=== PATIENT | female | born 1955 | race Hispanic/Latino ===

== ENCOUNTER 2018-02-13 07:22 | Observation (INO) | payer OTHER ==
[2018-02-13] MEDS ORDERED: ONDANSETRON 4 MG/2 ML VIAL ONE (08:19)
[2018-02-13 08:39] LABS: Albumin 3.9 g/dL (3.2-5.5); Bilirubin Direct 0.1 mg/dL (0-0.2); Bilirubin Total 0.4 mg/dL (0.3-1.2); Protein, Total 8.1 g/dL (6.0-8.3)
[2018-02-13 08:50] LABS: Absolute Lymphocytes (CBC) 1.3 K/uL (0.7-4.9); Absolute Monocytes 0.5 K/uL (0.1-1.3); Absolute Neutrophil 7.3 K/uL (1.8-8.0); Basophils % 0.4 % (0-1.3); Eosinophils % 1.6 % (0-4.4); Hematocrit 33.3 % (36.0-45.0); Lymphocytes % 14.2 % (15.3-44.8); MPV 7.5 fL (7.6-11.3); Monocytes % 5.4 % (3.3-12.3); RBC Red Blood Cell Count 3.62 M/uL (3.86-4.86)
[2018-02-13] MEDS ORDERED: ALBUTEROL 2.5 MG/3 ML NEB SOL ONE (09:31)
[2018-02-13] MEDS ORDERED: INSULIN -REGULAR HUMAN 50 UNIT/0.5 ML ML ONE (09:31)
[2018-02-13] MEDS ORDERED: SOD POLYSTYREN SUL 15 GM/60 ML UCUP ONE (09:31)
[2018-02-13] MEDS ORDERED: D50W 25 GM/50 ML SYRINGE IV ONE (09:31)
[2018-02-13 09:40] LABS: Urine Blood NEGATIVE (NEG); Urine Glucose NEGATIVE (NEG); Urine Protein 1+ (NEG)
--- NOTE | 2018-02-13 10:22 | EKG ---
Test Date: 2018-02-13 Test Time: 08:10:09 Kier Drier: SALLY MEASUREMENT RESULTS: Intervals: Rate: 92 WY: 136 QRSD: 88 QT: 348 QTc: 430 [place]: P: 46 WY: 136 QRS: -4 T: 22 INTERPRETIVE STATEMENTS: Normal sinus rhythm Minimal voltage criteria for LVH, may be normal variant Borderline ECG Compared to ECG 05/17/2016 07:20:18 ST (T wave) deviation no longer present Electronically Signed On 02-13-18 10:21:25 CDT by You Hernandez
[2018-02-13 12:04] LABS: Potassium 6.3 mEq/L (3.6-5.0)
--- NOTE | 2018-02-13 13:21 | ER ---
Nurse's Notes [facility] Name: Evelia Reis Age: 62 yrs Sex: Female : 1955 Arrival Date: 02/13/2018 Time: 07:24 Bed 5 Private MD: Diagnosis: Hyperkalemia Presentation: 02/13 07:31 Presenting complaint: Patient states: nausea and vomiting that began at 0230 this ss morning. Pt reports she was supposed to have blood tests drawn per Dr. Dale this morning to follow up for high potassium levels. Pt denies pain. Transition of care: patient was not received from another setting of care. Onset of symptoms was February 13, 2018. Care prior to arrival: None. 07:31 Method Of Arrival: Ambulatory 07:31 Acuity: SHERRI 3 ss Historical: - Allergies: 07:33 Amoxicillin; ss 07:33 NSAIDS; ss - Home Meds: 07:33 Vitamin D Oral [Active]; ss - PMHx: 07:33 Diabetes - IDDM; Hyperlipidemia; Hypertension; ischemic stroke; ss - PSHx: 07:33 right great toe amputation; ss - Immunization history:: Adult Immunizations up to date. - Social history:: Smoking status: Patient/guardian denies using tobacco. Screenin:37 Abuse screen: Denies threats or abuse. Denies injuries from another. Nutritional sv screening: No deficits noted. Tuberculosis screening: No symptoms or risk factors identified. Fall Risk None identified. Assessment: 08:00 General: Appears in no apparent distress. uncomfortable, obese, well developed, sv Behavior is calm, cooperative. Pain: Denies pain. Neuro: Level of Consciousness is awake, alert, obeys commands, Oriented to person, place, time, situation, Moves all extremities. Full function Gait is steady, Speech is normal. Respiratory: Respiratory effort is even, unlabored, Respiratory pattern is regular, symmetrical. GI: Abdomen is obese, Pt is actively vomiting clear fluid, Reports nausea, vomiting, Patient currently denies diarrhea. Derm: Skin is normal. Musculoskeletal: Range of motion: intact in all extremities. 09:30 Reassessment: Patient appears in no apparent distress at this time. Patient and/or sg family updated on plan of care and expected duration. Pain level reassessed. Patient is alert, oriented x 3, equal unlabored respirations, skin warm/dry/pink. pt awaiting new orders at this time, updated on pt lab results, will continue to monitor Patient denies pain at this time. Patient states feeling better. 10:30 Reassessment: Patient appears in no apparent distress at this time. Patient and/or sg family updated on plan of care and expected duration. Pain level reassessed. Patient is alert, oriented x 3, equal unlabored respirations, skin warm/dry/pink. Patient denies pain at this time. 11:30 Reassessment: Patient appears in no apparent distress at this time. Patient and/or sg family updated on plan of care and expected duration. Pain level reassessed. Patient is alert, oriented x 3, equal unlabored respirations, skin warm/dry/pink. awaiting potassium redraw results at this time, awaiting new orders, will continue to monitor Patient denies pain at this time. 12:30 Reassessment: Patient appears in no apparent distress at this time. Patient and/or sg family updated on plan of care and expected duration. Pain level reassessed. Patient is alert, oriented x 3, equal unlabored respirations, skin warm/dry/pink. Patient denies pain at this time. 13:30 Reassessment: Patient appears in no apparent distress at this time. Patient and/or sg family updated on plan of care and expected duration. Pain level reassessed. Patient is alert, oriented x 3, equal unlabored respirations, skin warm/dry/pink. awaiting a bed assignment at this time, awaiting admission orders, pt updated on POC and need for admit, updated on redraw potassium results, medications administered as ordered, will continue to monitor Patient denies pain at this time. 14:15 Reassessment: Patient appears in no apparent distress at this time. Patient and/or sg family updated on plan of care and expected duration. Pain level reassessed. Patient is alert, oriented x 3, equal unlabored respirations, skin warm/dry/pink. awaiting a food tray to be delivered at this time, pt stated understanding Patient denies pain at this time. Patient states feeling better. 14:29 Reassessment: Left voicemail on Dr Nguyễn's phone to input admission orders for the pt. sv 14:47 Reassessment: Patient appears in no apparent distress at this time. Patient and/or sg family updated on plan of care and expected duration. Pain level reassessed. Patient is alert, oriented x 3, equal unlabored respirations, skin warm/dry/pink. orders received for admission, pt updated, pt stated understanding, awaiting a bed assignment at this time will continue to monitor. Vital Signs: 07:33 BP 171 / 72; Pulse 118; Resp 21; Temp 98.4(O); Pulse Ox 98% on R/A; Weight 122.47 kg; ss Height 5 ft. 2 in. (157.48 cm); Pain 0/10; 10:09 BP 125 / 64; Pulse 100 MON; Resp 18 S; Temp 98.4; Pulse Ox 100% on R/A; Pain 0/10; sg 10:57 BP 128 / 61; Pulse 91; Resp 16; Pulse Ox 97% on R/A; jb1 12:00 BP 136 / 64; Pulse 80 MON; Resp 18; Pulse Ox 99% on R/A; sv 13:53 BP 120 / 47; Pulse 77; Resp 15; Pulse Ox 99% ; sv 14:22 BP 119 / 87; Pulse 80 MON; Resp 17 S; Pulse Ox 100% on R/A; sg 07:33 Body Mass Index 49.38 (122.47 kg, 157.48 cm) ss 12:00 Sinus Rhythm sv ED Course: 07:24 Patient arrived in ED. sb2 07:32 Triage completed. ss 07:33 Arm band placed on right wrist. ss 07:36 Noah Padron PA is PHCP. jr8 07:56 Otoniel Hidalgo MD is Attending Physician. jr8 07:58 Gordon Woodruff, RN is Primary Nurse. sg 08:00 Patient has correct armband on for positive identification. Placed in gown. Bed in low sv position. Call light in reach. Door closed. Head of bed elevated. 08:05 Initial lab(s) drawn, by me, sent to lab. Inserted saline lock: 20 gauge in left sv antecubital area, using aseptic technique. Blood collected. Flushed left antecubital with 5 ml normal saline. 08:28 Urine collected: clean catch specimen, cloudy, toshia colored. jb1 08:29 EKG done, by pet care technician. reviewed by Otoniel Hidalgo MD. tc 09:01 Notified Nurse Practitioner and/or Physician Police Or Patrol Park Officer of a critical lab result(s), K+ dm5 = 6. 13:20 Steven Nguyễn MD is Hospitalizing Provider. jr8 14:48 No provider procedures requiring assistance completed. Patient admitted, IV remains in sg place. intact, No redness/swelling at site. Administered Medications: 08:07 Drug: Zofran 4 mg Route: IVP; Site: left antecubital; sv 09:31 Follow up: Response: No adverse reaction; Nausea is decreased sg 09:30 Drug: Albuterol 2.5 mg Route: Inhalation; sg 09:30 Drug: Albuterol 2.5 mg Route: Inhalation; sg 09:30 Drug: Albuterol 2.5 mg Route: Inhalation; sg 09:30 Drug: Kayexalate 30 grams Route: PO; sg 10:00 Follow up: Response: No adverse reaction sg 09:31 Drug: D50W 50 ml Route: IVP; Site: left antecubital; sg 10:00 Follow up: Response: No adverse reaction sg 09:31 Drug: Insulin Regular Human 10 units {Co-Signature: (Modesta Strauss RN).} Route: sg IVP; Site: left antecubital; 10:00 Follow up: Response: No adverse reaction sg 14:10 Drug: Lasix 60 mg Route: IVP; Site: left antecubital; sg 15:50 Follow up: Response: No adverse reaction; void x1 sg 14:10 Drug: NS 0.9% 1000 ml Route: IV; Rate: 1000 ml; Site: left antecubital; sg 15:50 Follow up: Response: No adverse reaction; IV Status: Completed infusion; IV Intake: sg 500ml Intake: 15:50 IV: 500ml; Total: 500ml. sg Outcome: 13:21 Decision to Hospitalize by Provider. jr8 15:04 Admitted to Tele accompanied by tech, via wheelchair, room 204, with chart, Report sg called to ALEXIA Marquez 15:04 Condition: stable 15:04 Instructed on the need for admit, safety practices, Demonstrated understanding of instructions. 15:13 Patient left the ED. sg Signatures: Luis Love Deana, RN RN dmModesta Young RN RN sv Gay, Steven, RN RN sg Smirch, Shelby, RN RN ss Roszak, Josh, PA PA jr8 Nara Cox, housesmith EKG Ttc Heidi Reed sb2 Modesta Strauss RN sv
--- NOTE | 2018-02-13 13:21 | EDPHYS ---
Physician Documentation [facility] Name: Evelia Reis Age: 62 yrs Sex: Female : 1955 Arrival Date: 02/13/2018 Time: 07:24 Bed 5 Private MD: ED Physician Otoniel Hidalgo HPI: 02/13 08:07 This 62 yrs old Female presents to ER via Ambulatory with complaints of jr8 Nausea/Vomiting. 08:07 The patient presents to the emergency department with nausea, vomiting. Onset: The jr8 symptoms/episode began/occurred acutely, this morning. The symptoms are aggravated by nothing. The symptoms are alleviated by nothing. Associated signs and symptoms: The patient has no apparent associated signs or symptoms. Severity of symptoms: At their worst the symptoms were mild in the emergency department the symptoms are unchanged. The patient has not experienced similar symptoms in the past. The patient has not recently seen a physician. Patient stated that she started Tylenol #3 last night for low back pain. Stated that she took the medicine at 10 pm last night. Woke up around 2 am with n/v. Stated that she does not know if it is from that or her potassium. Stated that she was suppose to have labs to confirm hyperkalemia today as well. Denies fevers, diarrhea, abdominal pain . Historical: - Allergies: 07:33 Amoxicillin; ss 07:33 NSAIDS; ss - Home Meds: 07:33 Vitamin D Oral [Active]; ss - PMHx: 07:33 Diabetes - IDDM; Hyperlipidemia; Hypertension; ischemic stroke; ss - PSHx: 07:33 right great toe amputation; ss - Immunization history:: Adult Immunizations up to date. - Social history:: Smoking status: Patient/guardian denies using tobacco. ROS: 08:07 Eyes: Negative for injury, pain, redness, and discharge, ENT: Negative for injury, jr8 pain, and discharge, Neck: Negative for injury, pain, and swelling, Cardiovascular: Negative for chest pain, palpitations, and edema, Respiratory: Negative for shortness of breath, cough, wheezing, and pleuritic chest pain, Back: Negative for injury and pain, MS/Extremity: Negative for injury and deformity, Skin: Negative for injury, rash, and discoloration, Neuro: Negative for headache, weakness, numbness, tingling, and seizure. 08:07 Abdomen/GI: Positive for nausea and vomiting, Negative for abdominal pain, diarrhea, abdominal cramps, abdominal distension, anorexia, dysphagia, hematemesis, black/tarry stool, rectal pain, rectal bleeding, bowel incontinence, flatulence. Exam: 08:07 Head/Face: Normocephalic, atraumatic. Eyes: Pupils equal round and reactive to light, jr8 extra-ocular motions intact. Lids and lashes normal. Conjunctiva and sclera are non-icteric and not injected. Cornea within normal limits. Periorbital areas with no swelling, redness, or edema. ENT: Nares patent. No nasal discharge, no septal abnormalities noted. Tympanic membranes are normal and external auditory canals are clear. Oropharynx with no redness, swelling, or masses, exudates, or evidence of obstruction, uvula midline. Mucous membranes moist. Neck: Trachea midline, no thyromegaly or masses palpated, and no cervical lymphadenopathy. Supple, full range of motion without nuchal rigidity, or vertebral point tenderness. No Meningismus. Cardiovascular: Regular rate and rhythm with a normal S1 and S2. No gallops, murmurs, or rubs. Normal PMI, no JVD. No pulse deficits. Respiratory: Lungs have equal breath sounds bilaterally, clear to auscultation and percussion. No rales, rhonchi or wheezes noted. No increased work of breathing, no retractions or nasal flaring. Abdomen/GI: Soft, non-tender, with normal bowel sounds. No distension or tympany. No guarding or rebound. No evidence of tenderness throughout. Back: No spinal tenderness. No costovertebral tenderness. Full range of motion. Skin: Warm, dry with normal turgor. Normal color with no rashes, no lesions, and no evidence of cellulitis. MS/ Extremity: Pulses equal, no cyanosis. Neurovascular intact. Full, normal range of motion. Neuro: Awake and alert, GCS 15, oriented to person, place, time, and situation. Cranial nerves II-XII grossly intact. Motor strength 5/5 in all extremities. Sensory grossly intact. Cerebellar exam normal. Normal gait. Vital Signs: 07:33 BP 171 / 72; Pulse 118; Resp 21; Temp 98.4(O); Pulse Ox 98% on R/A; Weight 122.47 kg; ss Height 5 ft. 2 in. (157.48 cm); Pain 0/10; 10:09 BP 125 / 64; Pulse 100 MON; Resp 18 S; Temp 98.4; Pulse Ox 100% on R/A; Pain 0/10; sg 10:57 BP 128 / 61; Pulse 91; Resp 16; Pulse Ox 97% on R/A; jb1 12:00 BP 136 / 64; Pulse 80 MON; Resp 18; Pulse Ox 99% on R/A; sv 13:53 BP 120 / 47; Pulse 77; Resp 15; Pulse Ox 99% ; sv 14:22 BP 119 / 87; Pulse 80 MON; Resp 17 S; Pulse Ox 100% on R/A; sg 07:33 Body Mass Index 49.38 (122.47 kg, 157.48 cm) ss 12:00 Sinus Rhythm sv MDM: 07:36 Patient medically screened. [facility] 13:12 Data reviewed: vital signs, nurses notes, lab test result(s), and as a result, I will jr8 admit patient. Data interpreted: Pulse oximetry: on room air is 99 %. Interpretation: normal. Counseling: I had a detailed discussion with the patient and/or guardian regarding: the historical points, exam findings, and any diagnostic results supporting the discharge/admit diagnosis, lab results, the need for further work-up and treatment in the hospital. ED course: Patients original potassium was 6.0. Was given treatment to lower potassium. Redrawn after 2 hours. Had elevated. Checked for lab error and was still elevated. Had lab come to redraw. Patient feeling better. Will admit to Dr. Nguyễn for further evaluation . 02/13 07:49 Order name: Urine Dipstick--Ancillary (enter results) 02/13 07:52 Order name: Basic Metabolic Panel [facility] 02/13 07:52 Order name: CBC with Diff [facility] 02/13 07:52 Order name: Creatinine for Radiology [facility] 02/13 07:52 Order name: Hepatic Function [facility] 02/13 07:52 Order name: Lipase [facility] 02/13 08:33 Order name: Basic Metabolic Panel; Complete Time: 09:03 EDMT 02/13 08:40 Order name: Liver (Hepatic) Function; Complete Time: 09:03 EDMT 02/13 08:40 Order name: Lipase; Complete Time: 09:03 EDMT 02/13 08:51 Order name: CBC with Automated Diff; Complete Time: 08:59 EDMT 02/13 09:40 Order name: Urine Dipstick-Ancillary; Complete Time: 09:41 EDMT 02/13 09:46 Order name: Urinalysis [facility] 02/13 11:21 Order name: BMP; Complete Time: 12:12 [facility] 02/13 12:04 Order name: Potassium; Complete Time: 14:26 dm5 02/13 07:52 Order name: IV Saline Lock; Complete Time: 08:07 [facility] 02/13 07:52 Order name: Labs collected and sent; Complete Time: 08:07 [facility] 02/13 07:52 Order name: EKG; Complete Time: 09:30 [facility] 02/13 12:58 Order name: LAB Add On [facility] 02/13 13:04 Order name: Potassium [facility] 02/13 13:31 Order name: Diet Low Potassium; Complete Time: 16:03 02/13 14:04 Order name: Creatine Phosphokinase; Complete Time: 14:26 [facility] 02/13 14:51 Order name: Comprehensive Metabolic Panel; Complete Time: 15:20 [facility] 02/13 07:52 Order name: Urine Dipstick-Ancillary (obtain specimen); Complete Time: 08:08 [facility] 02/13 07:52 Order name: EKG - Nurse/Tech; Complete Time: 08:29 [facility] Administered Medications: 08:07 Drug: Zofran 4 mg Route: IVP; Site: left antecubital; 09:31 Follow up: Response: No adverse reaction; Nausea is decreased sg 09:30 Drug: Albuterol 2.5 mg Route: Inhalation; sg 09:30 Drug: Albuterol 2.5 mg Route: Inhalation; sg 09:30 Drug: Albuterol 2.5 mg Route: Inhalation; sg 09:30 Drug: Kayexalate 30 grams Route: PO; sg 10:00 Follow up: Response: No adverse reaction sg 09:31 Drug: D50W 50 ml Route: IVP; Site: left antecubital; sg 10:00 Follow up: Response: No adverse reaction sg 09:31 Drug: Insulin Regular Human 10 units {Co-Signature: sv (Modesta Strauss RN).} Route: sg IVP; Site: left antecubital; 10:00 Follow up: Response: No adverse reaction sg 14:10 Drug: Lasix 60 mg Route: IVP; Site: left antecubital; sg 15:50 Follow up: Response: No adverse reaction; void x1 sg 14:10 Drug: NS 0.9% 1000 ml Route: IV; Rate: 1000 ml; Site: left antecubital; sg 15:50 Follow up: Response: No adverse reaction; IV Status: Completed infusion; IV Intake: sg 500ml Disposition: 02/14 06:48 Co-signature as Attending Physician, Otoniel Hidalgo MD I agree with the assessment and pardeep plan of care. Disposition: 02/13/18 13:21 Hospitalization ordered by Steven Nguyễn for Observation. Preliminary diagnosis is Hyperkalemia. - Bed requested for Telemetry/MedSurg (observation). - Status is Observation. sg - Condition is Stable. - Problem is new. - Symptoms have improved. UTI on Admission? No Signatures: Dispatcher [employer] Modesta Sanchez RN RN sv Woody, Diana, RN RN dw Gay, Steven, RN RN sg Anderson, Corey, MD MD cha Smirch, Shelby, RN RN ss Roszak, Josh, PA PA jr8 Modesta Strauss RN Corrections: (The following items were deleted from the chart) 02/13 14:04 13:05 [facility] Creatine Kinase MB ordered. EDMT EDMS 14:04 14:02 [facility] Creatine Kinase MB reviewed. jr8 EDMS
[2018-02-13] MEDS ORDERED: NA CHLORIDE 0.9% 1,000 ML ONE (13:29)
[2018-02-13] MEDS ORDERED: FUROSEMIDE 100 MG/10 ML VIAL IV ONE (13:29)
[2018-02-13 14:01] LABS: Potassium 6.4 mEq/L (3.6-5.0)
[2018-02-13 14:50] LABS: Bilirubin Total 0.4 mg/dL (0.3-1.2); Protein, Total 8.2 g/dL (6.0-8.3)
[2018-02-13 15:00] LABS: Potassium 6.4 mEq/L (3.6-5.0)
[2018-02-13 15:18] VITALS: BMI 49.4
[2018-02-13] MEDS: NA CHLORIDE 0.9% 1,000 ML IV SCH ×2 (15:41→21:07)
[2018-02-13] MEDS: SOD POLYSTYREN SUL 15 GM/60 ML UCUP PO SCH ×2 (15:41→21:08)
[2018-02-13] MEDS ORDERED: D50W 25 GM/50 ML SYRINGE IV PRN (16:05)
[2018-02-13] MEDS ORDERED: GLUCAGON 1 MG/VIAL IM PRN (16:05)
[2018-02-13] MEDS: INSULIN -REGULAR HUMAN 50 UNIT/0.5 ML ML SQ SCH ×2 (16:22→21:00)
--- NOTE | 2018-02-13 16:36 | P.HP ---
Certification for Inpatient Patient admitted to: Observation With expected LOS: <2 Midnights Patient will require the following post-hospital care: None Practitioner: I am a practitioner with admitting privileges, knowledge of patient current condition, hospital course, and medical plan of care. Services: Services provided to patient in accordance with Admission requirements found in Title 42 Section 412.3 of the Code of Federal Regulations Patient History Date of Service: 02/13/18 Reason for admission: Nausea vomiting History of Present Illness: This is a 60-year-old female with a history of hypertension diabetes and the CKD D as well as a prior history of a hyperkalemia who presents to a emergency room because of persistent nausea vomiting for 1 day. In the emergency room laboratory study shows her potassium the range of 6.2. And she was giving on 1 does a Kayexalate in the ER and admitted hospital for further management. The patient have no abdominal pain fever chills dysuria. Allergies amoxicillin [Amoxicillin] Allergy (Unknown, Verified 03/26/14 21:55) Rash NSAIDS Allergy (Uncoded 08/29/15 14:30) Unknown Home Medications: Lisinopril [Prinivil*] 40 mg PO DAILY 03/26/14 Aspirin 81 mg PO DAILY #90 tab.chew 05/17/16 Clopidogrel Bisulfate [Plavix*] 75 mg PO DAILY #30 tablet 05/17/16 Atorvastatin Calcium [Lipitor] 40 mg PO BEDTIME 02/13/18 Codeine/APAP [Tylenol W/Codeine #3 tab] 1 tab PO BID 02/13/18 Cyclobenzaprine [Flexeril] 10 mg PO DAILY 02/13/18 Furosemide [Lasix] 20 mg PO DAILY 02/13/18 Insulin Glargine,Hum.rec.anlog [Kyler Velasco] 55 unit SQ DAILY WITH BREAKFAST 02/13/18 Insulin Lispro [Humalog] 10 unit SQ BREAKFAST 02/13/18 Insulin Lispro [Humalog] 14 unit SQ DAILY AT SUPPER 02/13/18 Insulin Lispro [Humalog] 14 unit SQ LUNCH 02/13/18 Liraglutide [Victoza 2-Migel] 1.8 mg SQ TIDWM 02/13/18 Metformin HCl [Glucophage] 1,000 mg PO DAILY WITH BREAKFAST 02/13/18 Metoprolol Succinate [Toprol Xl] 100 mg PO DAILY 02/13/18 Omeprazole [Prilosec] 40 mg PO DAILY 02/13/18 Spironolactone [Aldactone] 25 mg PO DAILY 02/13/18 - Past Medical/Surgical History Has patient received pneumonia vaccine in the past: Yes Diabetic: Yes -: HTN -: Hyperlipidemia -: Diabetes mellitus type 2 -: Chronic back pain with sciatica -: Peripheral vascular disease -: Right 1st toe amputation -: Superficial abscess of the abdomen, I/D -: Right lower extremity angioplasty Psychosocial/ Personal History: She is , has 2 children. She does not work. - Social History Smoking Status: Never smoker Alcohol use: No CD- Drugs: No Caffeine use: Yes Place of Residence: Home Review of Systems 10-point ROS is otherwise unremarkable Physical Examination - Vital Signs Temperature: 97 F Blood Pressure: 173/72 Pulse: 89 Respirations: 20 Pulse Ox (%): 99 - Physical Exam General: Alert, In no apparent distress, Obese HEENT: Atraumatic, PERRLA, Mucous membr. moist/pink, EOMI, Sclerae nonicteric Neck: Supple, 2+ carotid pulse no bruit, No LAD, Without JVD or thyroid abnormality Respiratory: Clear to auscultation bilaterally, Normal air movement Cardiovascular: Regular rate/rhythm, Normal S1 S2 Gastrointestinal: Normal bowel sounds, No tenderness Musculoskeletal: No tenderness Integumentary: No rashes Neurological: Normal gait, Normal speech, Normal strength at 5/5 x4 extr, Normal tone, Normal affect Lymphatics: No axilla or inguinal lymphadenopathy - Studies Laboratory Data (last 24 hrs) 02/13/18 13:16: Sodium 137, Potassium 6.4 H*, BUN 36 H, Creatinine 1.27 H, Glucose 140 H, Total Bilirubin 0.4, AST 23, ALT 15, Alkaline Phosphatase 107 02/13/18 12:10: Potassium 6.4 H* 02/13/18 11:40: Sodium 137, Potassium 6.3 H*, BUN 38 H, Creatinine 1.33 H, Glucose 138 H 02/13/18 08:05: WBC 9.4, Hgb 11.2 L, Hct 33.3 L, Plt Count 372 02/13/18 08:05: Sodium 138, Potassium 6.0 H*, BUN 38 H, Creatinine 1.40 H, Glucose 147 H, Total Bilirubin 0.4, AST 22, ALT 15, Alkaline Phosphatase 110, Lipase 45 02/13/18 07:52: Creatinine Cancelled 02/13/18 07:52: WBC Cancelled, Hgb Cancelled, Hct Cancelled, Plt Count Cancelled 02/13/18 07:52: Sodium Cancelled, Potassium Cancelled, BUN Cancelled, Creatinine Cancelled, Glucose Cancelled, Total Bilirubin Cancelled, AST Cancelled, ALT Cancelled, Alkaline Phosphatase Cancelled, Lipase Cancelled Assessment and Plan - Problems (Diagnosis) (1) Hyperkalemia Current Visit: Yes Status: Acute (2) CKD (chronic kidney disease) stage 2, GFR 60-89 ml/min Current Visit: Yes Status: Chronic (3) Diabetes Current Visit: Yes Status: Chronic Qualifiers: Diabetes mellitus type: type 2 Diabetes mellitus complication status: without complication (4) Hyperlipidemia Current Visit: Yes Status: Chronic Qualifiers: Hyperlipidemia type: unspecified (5) Hypertension Current Visit: Yes Status: Chronic Qualifiers: Hypertension type: essential hypertension - Plan --hold lisinopril --start patient on intravenous fluid replacement with Lasix --Kayexalate 15 g every 6 ah --repeat the labs tomorrow - Advance Directives Does patient have a Living Will: No Does patient have a Durable POA for Healthcare: No
[2018-02-13] MEDS ORDERED: HYDRALAZINE HCL 20 MG/ML VIAL IV PRN (16:38)
[2018-02-13] MEDS ORDERED: INSULIN LISPRO 100 UNIT/1 ML SQ SCH (17:00)
[2018-02-13] MEDS ORDERED: INSULIN LISPRO 14 UNIT SQ SCH (17:00)
[2018-02-13] MEDS: HOME MED 1 EA UNK (Liraglutide [Victoza 2-Pak] 1.8 MG) SQ SCH (17:00)
[2018-02-13] MEDS: CODEINE 30MG/APAP 300MG TAB PO SCH (21:00)
[2018-02-13] MEDS: FUROSEMIDE 40 MG/4 ML VIAL IV SCH (21:07)
[2018-02-13 23:34] VITALS: O2SAT 99
[2018-02-14] MEDS: SOD POLYSTYREN SUL 15 GM/60 ML UCUP PO SCH ×2 (03:40→08:36)
[2018-02-14 04:40] LABS: Urine Appearance CLEAR; Urine Bilirubin NEGATIVE (NEG); Urine Blood NEGATIVE (NEG); Urine Color YELLOW; Urine Glucose NEGATIVE (NEG); Urine Protein NEGATIVE (NEG); Urine Specific Gravity 1.015 (1.005-1.030); Urine Urobilinogen 0.2 mg/dL (0.2-1.0)
[2018-02-14 04:56] LABS: Urine Microscopic Reflex NO UMIC
[2018-02-14 05:30] LABS: Absolute Lymphocytes (CBC) 1.9 K/uL (0.7-4.9); Absolute Monocytes 0.7 K/uL (0.1-1.3); Absolute Neutrophil 5.4 K/uL (1.8-8.0); Eosinophils % 2.3 % (0-4.4); Hematocrit 31.1 % (36.0-45.0); Lymphocytes % 23.1 % (15.3-44.8); MCH 30.6 pg (27.0-35.0); MCV 92.1 fL (80-100); MPV 7.6 fL (7.6-11.3); Monocytes % 7.9 % (3.3-12.3); RBC Red Blood Cell Count 3.38 M/uL (3.86-4.86)
[2018-02-14 05:39] LABS: Potassium 5.2 mEq/L (3.6-5.0)
[2018-02-14] MEDS ORDERED: PANTOPRAZOLE 40MG TABLET PO SCH (07:30)
[2018-02-14] MEDS ORDERED: INSULIN DETEMIR 100 UNIT/1 ML INSULIN SQ SCH (08:00)
[2018-02-14] MEDS ORDERED: INSULIN LISPRO 10 UNIT SQ SCH (08:00)
[2018-02-14] MEDS: HOME MED 1 EA UNK (Liraglutide [Victoza 2-Pak] 1.8 MG) SQ SCH ×2 (08:00→11:18)
[2018-02-14] MEDS ORDERED: INSULIN LISPRO 100 UNIT/1 ML SQ SCH ×2 (08:00→12:00)
[2018-02-14] MEDS: INSULIN -REGULAR HUMAN 50 UNIT/0.5 ML ML SQ SCH ×2 (08:35→11:31)
[2018-02-14] MEDS: FUROSEMIDE 40 MG/4 ML VIAL IV SCH (08:36)
[2018-02-14] MEDS: CODEINE 30MG/APAP 300MG TAB PO SCH (08:37)
[2018-02-14] MEDS ORDERED: METOPROLOL XL 50 MG TAB PO SCH (09:00)
[2018-02-14] MEDS ORDERED: HOME MED 1 EA UNK (Omeprazole [Prilosec] 40 MG) PO SCH (09:00)
[2018-02-14] MEDS ORDERED: AMLODIPINE 10 MG TAB PO SCH (09:00)
[2018-02-14] MEDS ORDERED: CLOPIDOGREL 75 MG TABLET PO SCH (09:00)
[2018-02-14] MEDS ORDERED: ASPIRIN 81 MG CHEWABLE TABLET PO SCH (09:00)
[2018-02-14] MEDS: NA CHLORIDE 0.9% 1,000 ML IV SCH (11:31)
[2018-02-14] MEDS ORDERED: INSULIN LISPRO 14 UNIT SQ SCH (12:00)
[2018-02-14 13:05] VITALS: BP 157/74; TEMP 97.8
--- NOTE | 2018-02-14 17:19 | P.DS ---
Admission Date: 02/13/18 Discharge Date: 02/14/18 Disposition: ROUTINE DISCHARGE Discharge Condition: FAIR Reason for Admission: Nausea vomiting - Problems (1) Hyperkalemia Onset Date: 02/14/18 Status: Acute (2) CKD (chronic kidney disease) stage 2, GFR 60-89 ml/min Onset Date: 02/14/18 Status: Chronic (3) Diabetes Onset Date: 02/14/18 Status: Chronic Qualifiers: Diabetes mellitus type: type 2 Diabetes mellitus complication status: without complication (4) Hyperlipidemia Onset Date: 02/14/18 Status: Chronic Qualifiers: Hyperlipidemia type: unspecified (5) Hypertension Onset Date: 02/14/18 Status: Chronic Qualifiers: Hypertension type: essential hypertension Brief History of Present Illness: This is a 60-year-old female with a history of hypertension diabetes and the CKD D as well as a prior history of a hyperkalemia who presents to a emergency room because of persistent nausea vomiting for 1 day. In the emergency room laboratory study shows her potassium the range of 6.2. And she was giving on 1 does a Kayexalate in the ER and admitted hospital for further management. The patient have no abdominal pain fever chills dysuria. Hospital Course: The patient with admitted the hospital for hyperkalemia. She was treated with Kayexalate with clinical improvement and her potassium level went down to 5.2 today. Lisinopril [address] engle was discontinued and the patient was started on amlodipine 10 mg p.o. daily. The patient bold follow with her PCP next Sunday to recheck her potassium level and monitor her blood pressures Vital Signs/Physical Exam: Temp Pulse Resp BP Pulse Ox 97.8 F 74 18 157/74 H 100 02/14/18 12:00 02/14/18 12:00 02/14/18 12:00 02/14/18 12:00 02/14/18 12:00 General: Alert, In no apparent distress HEENT: Atraumatic, PERRLA, EOMI Neck: Supple, JVD not distended Respiratory: Clear to auscultation bilaterally, Normal air movement Cardiovascular: Regular rate/rhythm, Normal S1 S2 Gastrointestinal: Normal bowel sounds, No tenderness Musculoskeletal: No tenderness Integumentary: No rashes Neurological: Normal speech, Normal tone, Normal affect Lymphatics: No axilla or inguinal lymphadenopathy Laboratory Data at Discharge: WBC 8.3 K/uL (4.3-10.9) 02/14/18 04:57 Hgb 10.3 g/dL (12.0-15.0) L 02/14/18 04:57 Hct 31.1 % (36.0-45.0) L 02/14/18 04:57 Plt Count 328 K/uL (152-406) 02/14/18 04:57 Sodium 141 mEq/L (135-145) 02/14/18 04:57 Potassium 5.2 mEq/L (3.6-5.0) H 02/14/18 04:57 BUN 39 mg/dL (6-20) H 02/14/18 04:57 Creatinine 1.30 mg/dL (0.44-1.00) H 02/14/18 04:57 Glucose 165 mg/dL (65-120) H 02/14/18 04:57 Total Bilirubin 0.4 mg/dL (0.3-1.2) 02/13/18 13:16 AST 23 IU/L (10-42) 02/13/18 13:16 ALT 15 IU/L (10-60) 02/13/18 13:16 Alkaline Phosphatase 107 IU/L (42-121) 02/13/18 13:16 Lipase 45 U/L (22-51) 02/13/18 08:05 Home Medications: Aspirin 81 mg PO DAILY #90 tab.chew 05/17/16 Clopidogrel Bisulfate [Plavix*] 75 mg PO DAILY #30 tablet 05/17/16 Atorvastatin Calcium [Lipitor] 40 mg PO BEDTIME 02/13/18 Codeine/APAP [Tylenol #3*] 1 tab PO BID 02/13/18 Insulin Glargine,Hum.rec.anlog [Kyler Velasco] 55 unit SQ DAILY WITH BREAKFAST 02/13/18 Insulin Lispro [Humalog] 10 unit SQ BREAKFAST 02/13/18 Insulin Lispro [Humalog] 14 unit SQ DAILY AT SUPPER 02/13/18 Insulin Lispro [Humalog] 14 unit SQ LUNCH 02/13/18 Liraglutide [Victoza 2-Migel] 1.8 mg SQ TIDWM 02/13/18 Metformin HCl [Glucophage*] 1,000 mg PO DAILY WITH BREAKFAST 02/13/18 Metoprolol Succinate [Toprol Xl*] 100 mg PO DAILY 02/13/18 Omeprazole [Prilosec] 40 mg PO DAILY 02/13/18 Amlodipine [Norvasc] 10 mg PO DAILY #30 tab 02/14/18 Furosemide [Lasix] 20 mg PO BIDL #60 tab 02/14/18 New Medications: Amlodipine [Norvasc] 10 mg PO DAILY #30 tab Furosemide [Lasix] 20 mg PO BIDL #60 tab Activity: Ad yoselin Followup: Marcelle Dale DO [Primary Care Provider] - 2-3 Days (Follow up in office. Call to schedule an appointment.) Time spent managing pt's care (in minutes): 15
== END 2018-02-14 15:15 | disposition home or self-care (01) ==
LOC: ER 07:22 → ERHOLD 14:04 → 2ND 15:05
PROVIDERS: ADMIT Internal Medicine Hematology & Oncology; ATTEND Internal Medicine Hematology & Oncology
DX: E87.5 Hyperkalemia (principal); I12.9 Hypertensive chronic kidney disease with stage 1 through stage 4 chronic kidney disease, or unspecified chronic kidney disease; E11.22 Type 2 diabetes mellitus with diabetic chronic kidney disease; N18.2 Chronic kidney disease, stage 2 (mild); E78.5 Hyperlipidemia, unspecified; Z88.0 Allergy status to penicillin
CPT/HCPCS: 36415 ×2; 80048 ×3; 80053; 80076; 81003 ×2; 82550; 82962 ×4; 83690; 84132; 85025 ×2; 93005; 96361; 96374; 96375; 99285; G0378 ×2; J2405; J7030 ×4

== ENCOUNTER 2018-04-19 18:24 | Emergency (ER) | payer OTHER ==
--- NOTE | 2018-04-19 20:03 | EDPHYS ---
Physician Documentation [facility] Name: Evelia Reis Age: 62 yrs Sex: Female : 1955 Arrival Date: 04/19/2018 Time: 18:26 Bed 7 Private MD: Marcelle Dale ED Physician Otoniel Hidalgo HPI: 04/19 19:59 This 62 yrs old Female presents to ER via EMS with complaints of Cough, Sore jr8 Throat, Drainage From Eye, Ear Pain. 19:59 The patient or guardian reports cough, that is intermittent, described as mild, with no jr8 sputum. Onset: The symptoms/episode began/occurred acutely, 1 week(s) ago. Severity of symptoms: At their worst the symptoms were mild, in the emergency department the symptoms are unchanged. Modifying factors: The symptoms are alleviated by nothing, the symptoms are aggravated by nothing. Associated signs and symptoms: Pertinent positives: earache, sore throat, bilateral eye drainage. The patient has not experienced similar symptoms in the past. The patient has not recently seen a physician. Historical: - Allergies: 18:43 Amoxicillin; aj 18:43 NSAIDS; aj - Home Meds: 18:43 aspirin 81 mg Oral TbEC 1 tab once daily [Active]; atorvastatin 40 mg Oral tab 1 tab aj once daily [Active]; Flexeril 10 mg Oral tab [Active]; glargine 300 Units [Active]; Golytely 236-22.74-6.74 -5.86 gram Oral solr [Active]; Humalog Pen Sub-Q [Active]; lisinopril 40 mg Oral tab 1 tab once daily [Active]; metformin 1,000 mg Oral tr24 1 tab once daily [Active]; metoprolol succinate 100 mg Oral Tb24 1 tab once daily [Active]; omeprazole 40 mg Oral cpDR 1 cap once daily [Active]; spironolactone 25 mg Oral tab 1 tab 2 times per day [Active]; victoza [Active]; Vitamin D Oral [Active]; - PMHx: 18:43 Diabetes - IDDM; Hyperlipidemia; Hypertension; CVA; aj - PSHx: 18:43 right great toe amputation; aj - Immunization history:: Adult Immunizations up to date. - Social history:: Smoking status: Patient/guardian denies using tobacco. - Ebola Screening: : Patient negative for fever greater than or equal to 101.5 degrees Fahrenheit, and additional compatible Ebola Virus Disease symptoms Patient denies exposure to infectious person Patient denies travel to an Ebola-affected area in the 21 days before illness onset No symptoms or risks identified at this time. ROS: 19:59 Neck: Negative for injury, pain, and swelling, Cardiovascular: Negative for chest pain, jr8 palpitations, and edema, Abdomen/GI: Negative for abdominal pain, nausea, vomiting, diarrhea, and constipation, Back: Negative for injury and pain, MS/Extremity: Negative for injury and deformity, Skin: Negative for injury, rash, and discoloration, Neuro: Negative for headache, weakness, numbness, tingling, and seizure. 19:59 Eyes: Positive for discharge, matting, redness. 19:59 ENT: Positive for sore throat. 19:59 Respiratory: Positive for cough, Negative for shortness of breath, sputum production, wheezing. Exam: 19:59 Head/Face: Normocephalic, atraumatic. ENT: Nares patent. No nasal discharge, no jr8 septal abnormalities noted. Mild erythema noted to right TM. Left normal. Oropharynx with no redness, swelling, or masses, exudates, or evidence of obstruction, uvula midline. Mucous membranes moist. Neck: Trachea midline, no thyromegaly or masses palpated, and no cervical lymphadenopathy. Supple, full range of motion without nuchal rigidity, or vertebral point tenderness. No Meningismus. Cardiovascular: Regular rate and rhythm with a normal S1 and S2. No gallops, murmurs, or rubs. Normal PMI, no JVD. No pulse deficits. Respiratory: Lungs have equal breath sounds bilaterally, clear to auscultation and percussion. No rales, rhonchi or wheezes noted. No increased work of breathing, no retractions or nasal flaring. Abdomen/GI: Soft, non-tender, with normal bowel sounds. No distension or tympany. No guarding or rebound. No evidence of tenderness throughout. Back: No spinal tenderness. No costovertebral tenderness. Full range of motion. Skin: Warm, dry with normal turgor. Normal color with no rashes, no lesions, and no evidence of cellulitis. MS/ Extremity: Pulses equal, no cyanosis. Neurovascular intact. Full, normal range of motion. Neuro: Awake and alert, GCS 15, oriented to person, place, time, and situation. Cranial nerves II-XII grossly intact. Motor strength 5/5 in all extremities. Sensory grossly intact. Cerebellar exam normal. Normal gait. 19:59 Eyes: Periorbital structures: appear normal, Pupils: equal, round, and reactive to light and accomodation, Extraocular movements: intact throughout, Conjunctiva: injected, Corneas: are normal, Sclera: no appreciated abnormality, Lids and lashes: drainage, from both eyes. Vital Signs: 18:41 BP 151 / 68; Pulse 96; Resp 19; Temp 98.2; Pulse Ox 97% on R/A; Weight 126.1 kg; Height aj 5 ft. 2 in. (157.48 cm); 19:30 BP 113 / 42; Pulse 87; Resp 18; Pulse Ox 96% ; bp 20:00 BP 104 / 73; Pulse 88; Resp 16; Pulse Ox 97% ; rv 18:41 Body Mass Index 50.85 (126.10 kg, 157.48 cm) MDM: 19:21 Patient medically screened. [facility] 19:59 Data reviewed: vital signs, nurses notes, and as a result, I will discharge patient. [facility] Data interpreted: Pulse oximetry: on room air is 96 %. Interpretation: normal. 19:59 Counseling: I had a detailed discussion with the patient and/or guardian regarding: the 8 historical points, exam findings, and any diagnostic results supporting the discharge/admit diagnosis, the need for outpatient follow up, a family practitioner, to return to the emergency department if symptoms worsen or persist or if there are any questions or concerns that arise at home. Administered Medications: No medications were administered Disposition: 04/19/18 20:03 Discharged to Home. Impression: Acute suppurative otitis media, Acute upper respiratory infection, unspecified, Conjunctivitis. - Condition is Stable. - Discharge Instructions: Conjunctivitis (Viral and Bacterial), Upper Respiratory Infection, Adult. - Prescriptions for Gentamicin 0.3 % Ophthalmic Drops - instill 2 drops by OPHTHALMIC route every 4 hours for 7 days administer to both eyes; 1 bottle. Zithromax Z- Migel 250 mg Oral Tablet - take 1 tablet by ORAL route as directed for 5 days Day 1 - take two (2) tablets one time. Day 2, 3, 4 , 5 take one (1) tablet once daily.; 6 tablet. - Medication Reconciliation Form, Thank You Letter, Antibiotic Education, Prescription Opioid Use form. - Follow up: Marcelle Dale MD; When: 1 week; Reason: Recheck today's complaints, Continuance of care, Re-evaluation by your physician. - Problem is new. - Symptoms have improved. Addendum: 04/22/2018 06:56 Co-signature as Attending Physician, Otoniel Hidalgo MD I agree with the assessment and c felton plan of care. Signatures: Patty Beckford RN Otoniel Vidales MD MD cha Roszak, Josh, PA PA jr8 Rolando Gomez RN RN rv Corrections: (The following items were deleted from the chart) 04/19 20:01 19:59 Head/Face: Normocephalic, atraumatic. ENT: Nares patent. No nasal discharge, no jr8 septal abnormalities noted. Tympanic membranes are normal and external auditory canals are clear. Oropharynx with no redness, swelling, or masses, exudates, or evidence of obstruction, uvula midline. Mucous membranes moist. Neck: Trachea midline, no thyromegaly or masses palpated, and no cervical lymphadenopathy. Supple, full range of motion without nuchal rigidity, or vertebral point tenderness. No Meningismus. Cardiovascular: Regular rate and rhythm with a normal S1 and S2. No gallops, murmurs, or rubs. Normal PMI, no JVD. No pulse deficits. Respiratory: Lungs have equal breath sounds bilaterally, clear to auscultation and percussion. No rales, rhonchi or wheezes noted. No increased work of breathing, no retractions or nasal flaring. Abdomen/GI: Soft, non-tender, with normal bowel sounds. No distension or tympany. No guarding or rebound. No evidence of tenderness throughout. Back: No spinal tenderness. No costovertebral tenderness. Full range of motion. Skin: Warm, dry with normal turgor. Normal color with no rashes, no lesions, and no evidence of cellulitis. MS/ Extremity: Pulses equal, no cyanosis. Neurovascular intact. Full, normal range of motion. Neuro: Awake and alert, GCS 15, oriented to person, place, time, and situation. Cranial nerves II-XII grossly intact. Motor strength 5/5 in all extremities. Sensory grossly intact. Cerebellar exam normal. Normal gait. jr8 20:12 20:03 04/19/2018 20:03 Discharged to Home. Impression: Acute suppurative otitis media; rv Acute upper respiratory infection, unspecified; Conjunctivitis. Condition is Stable. Forms are Medication Reconciliation Form, Thank You Letter, Antibiotic Education, Prescription Opioid Use. Follow up: Marcelle Dale; When: 1 week; Reason: Recheck today's complaints, Continuance of care, Re-evaluation by your physician. Problem is new. Symptoms have improved. jr8
--- NOTE | 2018-04-19 20:03 | ER ---
Nurse's Notes [facility] Name: Evelia Reis Age: 62 yrs Sex: Female : 1955 Arrival Date: 04/19/2018 Time: 18:26 Bed 7 Private MD: Marcelle Dale Diagnosis: Acute suppurative otitis media;Acute upper respiratory infection, unspecified;Conjunctivitis Presentation: 04/19 18:41 Presenting complaint: Patient states: Reports cough for 1 week, sore throat for 2 days, aj and green exudate to bilateral eyes since this AM. Transition of care: patient was not received from another setting of care. Onset of symptoms was April 14, 2018. Risk Assessment: Do you want to hurt yourself or someone else? Patient reports no desire to harm self or others. Care prior to arrival: None. 18:41 Acuity: SHERRI 4 aj 18:41 Method Of Arrival: EMS: [facility] 19:15 Initial Sepsis Screen: Does the patient meet any 2 criteria? No. Patient's initial rv sepsis screen is negative. Does the patient have a suspected source of infection? No. Patient's initial sepsis screen is negative. Triage Assessment: 18:41 General: Appears in no apparent distress. comfortable, obese, Behavior is calm, aj cooperative, appropriate for age. Pain: Denies pain. EENT: Reports pain when swallowing green exudate to bilateral eyes. Respiratory: Reports cough that is Airway is patent Respiratory effort is even, unlabored, Respiratory pattern is regular, symmetrical. Derm: Skin is intact, is healthy with good turgor, Skin is pink, warm \T\ dry. normal. Historical: - Allergies: 18:43 Amoxicillin; aj 18:43 NSAIDS; aj - Home Meds: 18:43 aspirin 81 mg Oral TbEC 1 tab once daily [Active]; atorvastatin 40 mg Oral tab 1 tab aj once daily [Active]; Flexeril 10 mg Oral tab [Active]; glargine 300 Units [Active]; Golytely 236-22.74-6.74 -5.86 gram Oral solr [Active]; Humalog Pen Sub-Q [Active]; lisinopril 40 mg Oral tab 1 tab once daily [Active]; metformin 1,000 mg Oral tr24 1 tab once daily [Active]; metoprolol succinate 100 mg Oral Tb24 1 tab once daily [Active]; omeprazole 40 mg Oral cpDR 1 cap once daily [Active]; spironolactone 25 mg Oral tab 1 tab 2 times per day [Active]; victoza [Active]; Vitamin D Oral [Active]; - PMHx: 18:43 Diabetes - IDDM; Hyperlipidemia; Hypertension; CVA; aj - PSHx: 18:43 right great toe amputation; aj - Immunization history:: Adult Immunizations up to date. - Social history:: Smoking status: Patient/guardian denies using tobacco. - Ebola Screening: : Patient negative for fever greater than or equal to 101.5 degrees Fahrenheit, and additional compatible Ebola Virus Disease symptoms Patient denies exposure to infectious person Patient denies travel to an Ebola-affected area in the 21 days before illness onset No symptoms or risks identified at this time. Screenin:36 Abuse screen: Denies threats or abuse. Denies injuries from another. Nutritional bp screening: No deficits noted. Tuberculosis screening: No symptoms or risk factors identified. Fall Risk None identified. Assessment: 19:00 General: Appears in no apparent distress. comfortable, obese, Behavior is calm, bp cooperative, appropriate for age. Pain: Complains of pain in neck. Neuro: Level of Consciousness is awake, alert, obeys commands, Oriented to person, place, time, situation, Appropriate for age. Cardiovascular: No deficits noted. Respiratory: Airway is patent Respiratory effort is even, unlabored, Respiratory pattern is regular, symmetrical, Breath sounds are clear. GI: No signs and/or symptoms were reported involving the gastrointestinal system. : No signs and/or symptoms were reported regarding the genitourinary system. EENT: Eyes with exudate noted from right eye and left eye Throat is reddened. Derm: No deficits noted. Musculoskeletal: Circulation, motion, and sensation intact. Range of motion: intact in all extremities. 20:09 Reassessment: PT D/C HOME AMBULATORY, DX WITH OTITIS MEDIA, URI AND CONJUNCTIVITIS. rv Vital Signs: 18:41 BP 151 / 68; Pulse 96; Resp 19; Temp 98.2; Pulse Ox 97% on R/A; Weight 126.1 kg; Height aj 5 ft. 2 in. (157.48 cm); 19:30 BP 113 / 42; Pulse 87; Resp 18; Pulse Ox 96% ; bp 20:00 BP 104 / 73; Pulse 88; Resp 16; Pulse Ox 97% ; rv 18:41 Body Mass Index 50.85 (126.10 kg, 157.48 cm) ED Course: 18:26 Patient arrived in ED. as 18:26 Marcelle Dale MD is Private Physician. as 18:41 Arm band placed on left wrist. Patient placed in waiting room, Patient notified of wait aj time. 18:42 Triage completed. aj 19:20 Noah Padron PA is PHCP. jr8 19:21 Otoniel Hidalgo MD is Attending Physician. jr8 19:33 Sarkis Rosenberg, ALEXIA is Primary Nurse. bp 19:36 Patient has correct armband on for positive identification. Bed in low position. Call bp light in reach. Side rails up X2. 20:01 Marcelle Dale MD is Referral Physician. jr8 20:10 No provider procedures requiring assistance completed. Patient did not have IV access rv during this emergency room visit. Administered Medications: No medications were administered Outcome: 20:03 Discharge ordered by . jr8 20:10 Discharged to home ambulatory. rv 20:10 Condition: stable 20:10 Discharge instructions given to patient, Instructed on discharge instructions, follow up and referral plans. medication usage, Demonstrated understanding of instructions, follow-up care, medications, Prescriptions given X 2. 20:12 Patient left the ED. rv Signatures: Patty Beckford, RN RN Eliana Vargas as Noah Padron PA PA jrSarkis Montaño, Rolando Sims RN, RN RN rv Corrections: (The following items were deleted from the chart) 18:43 18:41 Method Of Arrival: Ambulatory [facility]
[2018-04-19 20:16] VITALS: TEMP 98.2
[2018-04-19 20:18] VITALS: BP 104/73; O2SAT 97
== END 2018-04-19 20:12 | disposition home or self-care (01) ==
LOC: ER 18:24
DX: J06.9 Acute upper respiratory infection, unspecified (principal); H66.009 Acute suppurative otitis media without spontaneous rupture of ear drum, unspecified ear; H10.9 Unspecified conjunctivitis; I10 Essential (primary) hypertension; E11.9 Type 2 diabetes mellitus without complications; Z79.82 Long term (current) use of aspirin; Z79.4 Long term (current) use of insulin; Z88.1 Allergy status to other antibiotic agents; Z88.6 Allergy status to analgesic agent
CPT/HCPCS: 99283

== ENCOUNTER 2018-10-08 15:26 | Emergency (ER) | payer OTHER ==
--- OUTSIDE RECORDS SUMMARY | 2018-10-08 15:29 | XMS REPORT ---
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 Problem Menopause present Z78.0 Active Problem Seasonal allergic rhinitis, J30.2 Active unspecified trigger Problem H/O section Z98.891 Active Problem Acute otitis externa of right ear, H60.501 Active unspecified type Problem Muscle spasm of both lower legs M62.838 Active Problem Peripheral vascular disease I73.9 Active Problem Hypomagnesemia E83.42 Active Problem History of ischemic stroke without Z86.73 Active residual deficits Problem Degenerative disc disease, lumbar M51.36 Active Problem Cough R05 Active Problem Chronic hyperkalemia E87.5 Active Problem Hospital discharge follow-up Z09 Active Problem Bilateral lower extremity edema R60.0 Active Problem PVD (peripheral vascular disease) I73.9 Active Problem Chronic a-fib I48.2 Active Problem Morbid obesity E66.01 Active Problem Edema R60.9 Active Problem History of intravascular stent Z95.828 Active placement Problem Chronic kidney disease, stage 3 N18.3 Active Problem Sciatica M54.30 Active Problem CKD (chronic kidney disease) stage N18.3 Active 3, GFR 30-59 ml/min Medications Medication Code Code Instructions Start End Status Dosage System Date Date Cyclobenzaprine HCl [facility] [id number] 10 MG Oral May 27, Active TAKE 1 2018 TABLET BY MOUTH EVERY DAY NEEDED Results No Known Results Summary Purpose [employer] Submission
--- OUTSIDE RECORDS SUMMARY | 2018-10-08 15:29 | XMS REPORT ---
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
--- OUTSIDE RECORDS SUMMARY | 2018-10-08 15:29 | XMS REPORT ---
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
--- OUTSIDE RECORDS SUMMARY | 2018-10-08 15:29 | XMS REPORT ---
:1955 Author Organization eClinicalWorks Care Team Providers Name Role Phone Dale, Na Provider Role Unavailable Allergies, Adverse Reactions, Alerts Substance Reaction Event Type Amoxicillin rash Drug Allergy Problems Problem Type Condition Code Onset Dates Condition Status Assessment Mixed hyperlipidemia E78.2 Active Assessment PVD (peripheral vascular disease) I73.9 Active Assessment Type 2 diabetes mellitus without E11.9 Active complications Assessment Essential hypertension I10 Active Problem Other iron deficiency anemia D50.8 Active Problem Type 2 diabetes mellitus without E11.9 Active complications Problem STD (sexually transmitted disease) A64 Active Problem Anemia in chronic illness D63.8 Active Problem Essential hypertension I10 Active Problem Mixed hyperlipidemia E78.2 Active Problem Morbid obesity due to excess E66.01 Active calories Problem 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 Z79.4 Active Problem Menopause present Z78.0 Active Problem Seasonal allergic rhinitis, J30.2 Active unspecified trigger Problem H/O section Z98.891 Active Problem Acute otitis externa of right ear, H60.501 Active unspecified type Problem Muscle spasm of both lower legs M62.838 Active Problem Peripheral vascular disease I73.9 Active Problem Hypomagnesemia E83.42 Active Assessment Degenerative disc disease, lumbar M51.36 Active Problem History of ischemic stroke without Z86.73 Active residual deficits Problem Degenerative disc disease, lumbar M51.36 Active Assessment History of ischemic stroke without Z86.73 Active residual deficits Problem Cough R05 Active Problem Chronic hyperkalemia E87.5 Active Problem Hospital discharge follow-up Z09 Active Problem Bilateral lower extremity edema R60.0 Active Assessment Elevated serum globulin level R77.1 Active Problem PVD (peripheral vascular disease) I73.9 Active Assessment Other iron deficiency anemia D50.8 Active Problem Chronic a-fib I48.2 Active Assessment CKD (chronic kidney disease) stage N18.3 Active 3, GFR 30-59 ml/min Problem Morbid obesity E66.01 Active Assessment Elevated alkaline phosphatase level R74.8 Active Problem Edema R60.9 Active Assessment History of intravascular stent Z95.828 Active placement Problem History of intravascular stent Z95.828 Active placement Assessment group home current use of insulin Z79.4 Active Problem Chronic kidney disease, stage 3 N18.3 Active Problem Sciatica M54.30 Active Problem CKD (chronic kidney disease) stage N18.3 Active 3, GFR 30-59 ml/min Medications Medication Code Code Instructions Start End Status Dosage System Date Date Narcisa Contour Next [facility] 05489906577 - Active USE 3 Test TIMES A DAY E11.9 Omeprazole [facility] 58397241445 40 MG Active TAKE BY MOUTH 1 CAPSULE ADA Lisinopril ND 30439103985 20 MG Active TAKE 1 TABLET BY MOUTH EVERY DAY Lasix ND 41372144195 20 MG Orally Active 2 tablet Once a day BD Insulin Syringe ND 55537140482 31G X 5/16 Active not Ultrafine defined Glucometer Kit NDC 0 Fingerstick Jan 03March Active Check BS BID 2017, twice a 2025 day Narcisa Microlet ND 72527687664 - use lancets April 27, Active as Lancets three times a 2017 Atorvastatin ND 27399229408 40 MG Orally Active 1 tablet Calcium Once a day Metoprolol [facility] 09215333846 100 MG Active TAKE BY Succinate ER MOUTH 1 TABLET DAILY BD Insulin Syringe ND 94053634092 31G X 5/16 Active not Ultrafine defined Toujeo SoloStar [facility] 55429312429 300 UNIT/ML Active not Subcutaneous defined Metformin HCl ND 76094652818 1000 MG Orally Active 1 tablet once a day with meals Glucometer Kit NDC 0 Fingerstick Jan 03March Active Check BS TID 2017, three 2025 times a day Guaifenesin ND 29973810722 200 MG Orally Active 1 tablet every 4 hrs as needed Magnesium ND 28705109789 500 MG Orally Active 1 tablet Once a day with a meal Aspir-81 ND 80144787614 81 MG Orally Active 1 tablet Once a day Neomycin-Polymyxin ND 73478218117 3.5-08952-7 Active 4 drops -HC Otic Three into times a day affected ear Clopidogrel ND 00488454913 75 MG Active TAKE 1 Bisulfate TABLET BY MOUTH EVERY DAY Spironolactone ND 29445668551 25 MG Orally Active 1 tablet Once a day with food Cyclobenzaprine [facility] 02726060412 10 MG Orally Aug Active 1 tablet HCl one time a day 17, as needed 2018 Narcisa Microlet [facility] 78199487855 - Active USE 3 Lancets TIMES A DAY E11.9 Humalog KwikPen [facility] 88861159841 100 UNIT/ML Active not Subcutaneous defined Atorvastatin [facility] 67726323420 40 MG Active TAKE 1 Calcium TABLET BY MOUTH AT BEDTIME. Victoza [facility] 82981640294 18 MG/3ML Active not Subcutaneous defined Vitamin B-12 ER [facility] 68472667960 1000 MCG Orally Active 1 tablet Once a day Lancets [facility] 65651583364 - Active not defined Accu-Chek SoftClix [facility] 44737942318 1 InVitro Active As Lancet Directed Results No Known Results Summary Purpose eClinicalWorks Submission
--- OUTSIDE RECORDS SUMMARY | 2018-10-08 15:29 | XMS REPORT ---
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
--- OUTSIDE RECORDS SUMMARY | 2018-10-08 15:29 | XMS REPORT ---
:1955 Author Organization eClinicalWorks Care Team Providers Name Role Phone Dale, Na Provider Role Unavailable Allergies, Adverse Reactions, Alerts Substance Reaction Event Type Amoxicillin rash Drug Allergy Problems Problem Type Condition Code Onset Dates Condition Status Assessment Muscle spasm of both lower legs M62.838 Active Assessment History of CVA (cerebrovascular Z86.73 Active accident) Assessment Bilateral lower extremity edema R60.0 Active Assessment Essential hypertension I10 Active Assessment Acute otitis externa of right ear, H60.501 Active unspecified type Problem Other iron deficiency anemia D50.8 Active Problem Type 2 diabetes mellitus without E11.9 Active complications Problem STD (sexually transmitted disease) A64 Active Problem Anemia in chronic illness D63.8 Active Problem Essential hypertension I10 Active Problem Mixed hyperlipidemia E78.2 Active Problem Morbid obesity due to excess E66.01 Active calories 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 Active Problem Menopause present Z78.0 Active Problem Chronic hyperkalemia E87.5 Active Problem H/O section Z98.891 Active Problem History of CVA (cerebrovascular Z86.73 Active accident) Problem Acute otitis externa of right ear, H60.501 Active unspecified type Problem Morbid obesity E66.01 Active Problem Peripheral vascular disease I73.9 Active Problem Muscle spasm of both lower legs M62.838 Active Problem Hypomagnesemia E83.42 Active Problem Bilateral lower extremity edema R60.0 Active Problem Cough R05 Active Problem Seasonal allergic rhinitis, J30.2 Active unspecified trigger Problem Hospital discharge follow-up Z09 Active Assessment Chronic kidney disease, stage 3 N18.3 Active Problem Chronic a-fib I48.2 Active Assessment Mixed hyperlipidemia E78.2 Active Problem Sciatica M54.30 Active Assessment Chronic hyperkalemia E87.5 Active Problem Edema R60.9 Active Assessment Seasonal allergic rhinitis, J30.2 Active unspecified trigger Problem PVD (peripheral vascular disease) I73.9 Active Problem Chronic kidney disease, stage 3 N18.3 Active Assessment Mild anemia D64.9 Active Problem Degenerative disc disease, lumbar M51.36 Active Problem CKD (chronic kidney disease) stage N18.3 Active 3, GFR 30-59 ml/min Problem History of intravascular stent Z95.828 Active placement Medications Medication Code Code Instructions Start End Status Dosage System Date Date Lancets [facility] 31230968536 - Active not defined Vitamin B-12 ER [facility] 25500024525 1000 MCG Active 1 tablet Orally Once a day Omeprazole [facility] 78317486327 40 MG Active TAKE BY MOUTH 1 CAPSULE ADA Narcisa Contour Next ND 34839331047 - Active USE 3 Test TIMES A DAY E11.9 Humalog KwikPen [facility] 11368841168 100 UNIT/ML Active not Subcutaneous defined Lasix [facility] 92566176652 20 MG Orally Active 2 tablet Once a day Neomycin-Polymyxin [facility] 50881119531 3.5-96018-7 Active 4 drops -HC Otic Three into times a day affected ear Guaifenesin [facility] 26904013668 200 MG Orally Active 1 tablet every 4 hrs as needed Narcisa Microlet [facility] 67742777799 - Active USE 3 Lancets TIMES A DAY E11.9 Magnesium [facility] 44821814596 500 MG Orally Active 1 tablet Once a day with a meal Glucometer Kit NDC 0 Fingerstick Jan 03March Active Check BS BID 2017, twice a 2025 day Glucometer Kit NDC 0 Fingerstick Jan 03March Active Check BS TID 2017, three 2025 times a day Metoprolol [facility] 55969949571 100 MG Active TAKE BY Succinate ER MOUTH 1 TABLET DAILY Amlodipine ND 60857121135 10 MG Orally Inactive 1 tablet Besylate Once a day BD Insulin Syringe [facility] 57845975771 31G X 5/16 Active not Ultrafine defined BD Insulin Syringe [facility] 34950425261 31G X 5/16 Active not Ultrafine defined Metformin HCl ND 27519233910 1000 MG Orally Active 1 tablet once a day with meals Atorvastatin ND 67733152292 40 MG Active TAKE 1 Calcium TABLET BY MOUTH AT BEDTIME. Clopidogrel [facility] 61875789312 75 MG Active TAKE 1 Bisulfate TABLET BY MOUTH EVERY DAY Spironolactone [facility] 82833190102 25 MG Orally Active 1 tablet Once a day with food Cyclobenzaprine [facility] 14751594824 10 MG Orally Aug Active 1 tablet HCl one time a day 17, as needed 2017 Victoza [facility] 06143173959 18 MG/3ML Active not Subcutaneous defined Accu-Chek SoftClix [facility] 13985078353 1 InVitro Active As Lancet Directed Aspir-81 [facility] 31985653268 81 MG Orally Active 1 tablet Once a day Kyler Felipe [facility] 13496052194 300 UNIT/ML Active not Subcutaneous defined Results No Known Results Summary Purpose eClinicalWorks Submission
--- OUTSIDE RECORDS SUMMARY | 2018-10-08 15:29 | XMS REPORT ---
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
--- NOTE | 2018-10-08 17:09 | RAD REPORT ---
EXAM DESCRIPTION: RAD - Knee Left 3 View - 10/08/2018 4:59 pm CLINICAL HISTORY: fall Pain COMPARISON: No comparisons FINDINGS: Prominent tricompartmental osteoarthritis is present. No fracture, dislocation or signific ant joint effusion.
--- NOTE | 2018-10-08 17:12 | RAD REPORT ---
EXAM DESCRIPTION: RAD - Knee Right 3 View - 10/08/2018 4:59 pm CLINICAL HISTORY: fall Trauma, pain COMPARISON: No comparisons FINDINGS: Medial compartment space arthritic changes are present. No fracture, dislocation or signif icant joint effusion. IMPRESSION: Moderate osteoarthritis.
--- NOTE | 2018-10-08 17:13 | RAD REPORT ---
EXAM DESCRIPTION: RAD - Wrist Right 3 View - 10/08/2018 5:00 pm CLINICAL HISTORY: fall Pain COMPARISON: No comparisons FINDINGS: Mild radiocarpal arthritic changes are seen. No acute fracture or dislocation is evident.
--- NOTE | 2018-10-08 18:25 | EDPHYS ---
Physician Documentation [facility] Name: Evelia Reis Age: 63 yrs Sex: Female : 1955 Arrival Date: 10/08/2018 Time: 15:31 Bed 25 Private MD: Marcelle Dale ED Physician Otoniel Hidalgo HPI: 10/08 16:00 This 63 yrs old Female presents to ER via Ambulatory with complaints of Fall jmm Injury - KNEES. 16:00 Details of fall: The patient fell from an upright position. Onset: The symptoms/episode jmm began/occurred acutely, 4 day(s) ago. This is a 63 year old female with a history of CVA, DM, HTN, HLP that presents to the ED with anterior left knee pain and right lateral knee pain after a mechanical fall from a standing position this past Sunday. patient also complains of mild right distal ulnar wrist pain. Patient denies other injury. . Historical: - Allergies: 15:44 Amoxicillin; jl7 15:44 NSAIDS; jl7 - PMHx: 15:44 CVA; Diabetes - IDDM; Hypertension; Hyperlipidemia; ischemic stroke; jl7 - PSHx: 15:44 right great toe amputation; jl7 - Immunization history: Last tetanus immunization: unknown. - Social history:: Smoking status: Patient/guardian denies using tobacco. - Ebola Screening: : No symptoms or risks identified at this time. ROS: 16:00 Constitutional: Negative for fever, chills, and weight loss, Eyes: Negative for injury, jmm pain, redness, and discharge, Cardiovascular: Negative for chest pain, palpitations, and edema, Respiratory: Negative for shortness of breath, cough, wheezing, and pleuritic chest pain. 16:00 MS/extremity: Positive for injury or acute deformity, pain. 16:00 All other systems are negative. Exam: 16:00 Head/Face: atraumatic. Eyes: EOMI, no conjunctival erythema appreciated ENT: Moist jmm Mucus Membranes Neck: Trachea midline, Supple Chest/axilla: Normal chest wall appearance and motion. Cardiovascular: Regular rate and rhythm. No edema appreciated Respiratory: Normal respirations, no respiratory distress appreciated Abdomen/GI: Non distended, soft 16:00 Constitutional: The patient appears in no acute distress, alert, awake. 16:00 Musculoskeletal/extremity: left anterior knee pain on palpation, FROM appreciated, right lateral knee tender to palpation, FROM appreciated, compartments soft bilaterally, full dorsalis pedis pulse appreciated, NVI. Right distal ulnar region TTP, FROM appreciated, No snuff box tenderness, full radial pulse, NVI. 16:00 Skin: Appearance: Color: normal in color. 16:00 Neuro: Orientation: is normal, Mentation: is normal, Memory: is normal. 16:00 Psych: Behavior/mood is pleasant, cooperative. Vital Signs: 15:39 BP 145 / 83; Pulse 82; Resp 16; Temp 98.2(O); Pulse Ox 100% on R/A; Weight 122.47 kg jl7 (R); Height 5 ft. 2 in. (157.48 cm) (R); Pain 8/10; 18:23 BP 144 / 79; Pulse 79; Resp 17; Pulse Ox 99% on R/A; aj 15:39 Body Mass Index 49.38 (122.47 kg, 157.48 cm) jl7 Johnathan Coma Score: 15:39 Eye Response: spontaneous(4). Verbal Response: oriented(5). Motor Response: obeys jl7 commands(6). Total: 15. Trauma Score (Adult): 15:39 Eye Response: spontaneous(1); Verbal Response: oriented(1); Motor Response: obeys jl7 commands(2); Systolic BP: > 89 mm Hg(4); Respiratory Rate: 10 to 29 per min(4); Johnathan Score: 15; Trauma Score: 12 MDM: 16:00 Patient medically screened. [facility] 18:24 Data reviewed: vital signs, nurses notes. Counseling: I had a detailed discussion with [facility] the patient and/or guardian regarding: the historical points, exam findings, and any diagnostic results supporting the discharge/admit diagnosis, radiology results, the need for outpatient follow up, to return to the emergency department if symptoms worsen or persist or if there are any questions or concerns that arise at home. 18:24 Data interpreted: Pulse oximetry: on room air is 99 %. Interpretation: normal. [facility] 10/08 16:17 Order name: Knee Right 3 View XRAY [facility] 10/08 16:17 Order name: Knee Left 3 View XRAY [facility] 10/08 16:17 Order name: Wrist Right 3 View XRAY [facility] 10/08 17:16 Order name: RAD; Complete Time: 18:14 [facility] 10/08 17:17 Order name: RAD; Complete Time: 18:14 [facility] 10/08 17:17 Order name: RAD; Complete Time: 18:14 [facility] 10/08 18:14 Order name: Gabriel wrap-joint; Complete Time: 18:33 [facility] Administered Medications: No medications were administered Disposition: 10/09 06:39 Co-signature as Attending Physician, Otoniel Hidalgo MD I agree with the assessment and pardeep plan of care. Disposition: 10/08/18 18:24 Discharged to Home. Impression: Contusion of unspecified knee, Other specified sprain of wrist. - Condition is Stable. - Discharge Instructions: Knee Pain, Wrist Sprain. - Medication Reconciliation Form, Thank You Letter, Antibiotic Education, Prescription Opioid Use form. - Follow up: James Abdi MD; When: 2 - 3 days; Reason: Recheck today's complaints, Continuance of care, Re-evaluation by your physician. Signatures: Dispatcher [employer] [facility] Patty Beckford, RN Otoniel Vidales MD MD cha Mickail, Joel, PA PA [facility] Shalonda Gan RN RN jl7 Corrections: (The following items were deleted from the chart) 10/08 19:16 18:24 10/08/2018 18:24 Discharged to Home. Impression: Contusion of unspecified knee; aj Other specified sprain of wrist. Condition is Stable. Forms are Medication Reconciliation Form, Thank You Letter, Antibiotic Education, Prescription Opioid Use. Follow up: Dr. James Abdi; When: 2 - 3 days; Reason: Recheck today's complaints, Continuance of care, Re-evaluation by your physician. braden
--- NOTE | 2018-10-08 18:25 | ER ---
Nurse's Notes [facility] Name: Evelia Reis Age: 63 yrs Sex: Female : 1955 Arrival Date: 10/08/2018 Time: 15:31 Bed 25 Private MD: Marcelle Dale Diagnosis: Contusion of unspecified knee;Other specified sprain of wrist Presentation: 10/08 15:39 Presenting complaint: Patient states: I tripped and fell Sunday and hurt both knees but jl7 my left knee is hurting more and my right wrist is hurting. I've been having to sleep sitting up because my knees hurt so bad and now my feet are swollen. Care prior to arrival: None. Mechanism of Injury: Fall from standing position. Trauma event details: Injury occurred in the [facility], Injury occurred: at home. Injury occurred: October 04, 2018. 15:39 Method Of Arrival: Ambulatory jl7 15:39 Acuity: SHERRI 3 jl7 15:43 Transition of care: patient was not received from another setting of care. Onset of jl7 symptoms was October 04, 2018. Risk Assessment: Do you want to hurt yourself or someone else? Patient reports no desire to harm self or others. Initial Sepsis Screen: Does the patient meet any 2 criteria? No. Patient's initial sepsis screen is negative. Does the patient have a suspected source of infection? No. Patient's initial sepsis screen is negative. Trauma Activation: Not Applicable Physician: ED Physician; Name: ; Notified At: ; Arrived At: Physician: General Surgeon; Name: ; Notified At: ; Arrived At: Physician: Radiology; Name: ; Notified At: ; Arrived At: Physician: Respiratory; Name: ; Notified At: ; Arrived At: Physician: Lab; Name: ; Notified At: ; Arrived At: Historical: - Allergies: 15:44 Amoxicillin; jl7 15:44 NSAIDS; jl7 - PMHx: 15:44 CVA; Diabetes - IDDM; Hypertension; Hyperlipidemia; ischemic stroke; jl7 - PSHx: 15:44 right great toe amputation; jl7 - Immunization history: Last tetanus immunization: unknown. - Social history:: Smoking status: Patient/guardian denies using tobacco. - Ebola Screening: : No symptoms or risks identified at this time. Screenin:39 Abuse screen: Denies threats or abuse. Denies injuries from another. Tuberculosis jl7 screening: No symptoms or risk factors identified. Primary Survey: 15:39 Breathing/Chest: Respiratory pattern: regular, Respiratory effort: spontaneous, jl7 unlabored, Chest inspection: symmetrical rise and fall of the chest. Circulation: Skin color: pink. Disability Alert. Assessment: 15:39 General: Appears in no apparent distress. uncomfortable, Behavior is calm, cooperative, jl7 appropriate for age. Pain: Complains of pain in right knee and left knee and right wrist Pain currently is 8 out of 10 on a pain scale. at worst was 10 out of 10 on a pain scale. Quality of pain is described as aching, Pain began 2-3 days ago. Is intermittent. Neuro: Level of Consciousness is awake, alert, obeys commands. Cardiovascular: Patient's skin is warm and dry. Respiratory: Airway is patent Respiratory effort is even, unlabored, Respiratory pattern is regular, symmetrical. Derm: Skin is pink, warm \T\ dry. 16:54 Reassessment: Patient appears in no apparent distress at this time. General: Appears in aj no apparent distress. comfortable, obese, Behavior is calm, cooperative, appropriate for age. Pain: Complains of pain in left leg and right knee and left knee. Neuro: Level of Consciousness is awake, alert, obeys commands, Oriented to person, place, time, situation, Appropriate for age. Respiratory: Airway is patent Respiratory effort is even, unlabored, Respiratory pattern is regular, symmetrical. Derm: Skin is intact, is healthy with good turgor, Skin is pink, warm \T\ dry. normal. Musculoskeletal: Circulation, motion, and sensation intact. Range of motion: intact in all extremities, Reports pain in right knee and left knee. Vital Signs: 15:39 BP 145 / 83; Pulse 82; Resp 16; Temp 98.2(O); Pulse Ox 100% on R/A; Weight 122.47 kg jl7 (R); Height 5 ft. 2 in. (157.48 cm) (R); Pain 8/10; 18:23 BP 144 / 79; Pulse 79; Resp 17; Pulse Ox 99% on R/A; aj 15:39 Body Mass Index 49.38 (122.47 kg, 157.48 cm) jl7 Johnathan Coma Score: 15:39 Eye Response: spontaneous(4). Verbal Response: oriented(5). Motor Response: obeys jl7 commands(6). Total: 15. Trauma Score (Adult): 15:39 Eye Response: spontaneous(1); Verbal Response: oriented(1); Motor Response: obeys jl7 commands(2); Systolic BP: > 89 mm Hg(4); Respiratory Rate: 10 to 29 per min(4); Johnathan Score: 15; Trauma Score: 12 ED Course: 15:31 Patient arrived in ED. sb2 15:31 Marcelle Dale MD is Private Physician. sb2 15:39 Patient maintains SpO2 saturation greater than 95% on room air. jl7 15:41 Triage completed. jl7 15:44 Arm band placed on right wrist. jl7 15:51 Patty Beckford, RN is Primary Nurse. kaiden 15:54 Xiang Dinero PA is PHCP. jesús 15:54 Otoniel Hidalgo MD is Attending Physician. [facility] 18:24 James Abdi MD is Referral Physician. [facility] 18:33 Gabriel wrap to left knee and right knee. aj 19:15 No provider procedures requiring assistance completed. Patient did not have IV access aj during this emergency room visit. Administered Medications: No medications were administered Outcome: 18:24 Discharge ordered by MD. [facility] 19:15 Discharged to home ambulatory. aj 19:15 Condition: good 19:15 Discharge instructions given to patient, Instructed on discharge instructions, follow up and referral plans. Demonstrated understanding of instructions, follow-up care. 19:16 Patient left the ED. aj Signatures: Patty Beckford RN Xiang Werner PA PA jmm Leal, Jahala, RN RN jl7 Billeau, Sheri sb2 Corrections: (The following items were deleted from the chart) 15:45 15:39 Presenting complaint: Patient states: I tripped and fell Sunday and hurt both jl7 knees but my left knee is hurting more and my right wrist is hurting. jl7 15:45 15:39 Acuity: SHERRI 4 jl7 jl7
[2018-10-08 19:55] VITALS: TEMP 98.2
[2018-10-08 19:57] VITALS: BP 144/79; O2SAT 99
== END 2018-10-08 19:16 | disposition home or self-care (01) ==
LOC: ER 15:26
DX: S63.591A Other specified sprain of right wrist, initial encounter (principal); S80.00XA Contusion of unspecified knee, initial encounter; W19.XXXA Unspecified fall, initial encounter; Y93.89 Activity, other specified; Y92.9 Unspecified place or not applicable; Z88.1 Allergy status to other antibiotic agents; Z88.6 Allergy status to analgesic agent; Z86.73 Personal history of transient ischemic attack (TIA), and cerebral infarction without residual deficits; I10 Essential (primary) hypertension; E11.9 Type 2 diabetes mellitus without complications
CPT/HCPCS: 99284

== ENCOUNTER 2018-12-23 16:23 | Emergency (ER) | payer OTHER ==
--- OUTSIDE RECORDS SUMMARY | 2018-12-23 16:25 | XMS REPORT ---
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 69733804445 - Active not defined Vitamin B-12 ER [facility] 58670213764 1000 MCG Active 1 tablet Orally Once a day Omeprazole [facility] 62610531734 40 MG Active TAKE BY MOUTH 1 CAPSULE ADA Narcisa Contour Next ND 37855861384 - Active USE 3 Test TIMES A DAY E11.9 Humalog KwikPen [facility] 60909889041 100 UNIT/ML Active not Subcutaneous defined Lasix [facility] 24774993480 20 MG Orally Active 2 tablet Once a day Neomycin-Polymyxin [facility] 76885180444 3.5-02729-1 Active 4 drops -HC Otic Three into times a day affected ear Guaifenesin [facility] 10363785602 200 MG Orally Active 1 tablet every 4 hrs as needed Narcisa Microlet [facility] 32118198351 - Active USE 3 Lancets TIMES A DAY E11.9 Magnesium [facility] 77925579142 500 MG Orally Active 1 tablet Once a day with a meal Glucometer Kit NDC 0 Fingerstick Jan 03March Active Check BS BID 2017, twice a 2025 day Glucometer Kit NDC 0 Fingerstick Jan 03March Active Check BS TID 2017, three 2025 times a day Metoprolol [facility] 59080280320 100 MG Active TAKE BY Succinate ER MOUTH 1 TABLET DAILY Amlodipine ND 90518451197 10 MG Orally Inactive 1 tablet Besylate Once a day BD Insulin Syringe [facility] 76265135363 31G X 5/16 Active not Ultrafine defined BD Insulin Syringe [facility] 00279986702 31G X 5/16 Active not Ultrafine defined Metformin HCl ND 85525494425 1000 MG Orally Active 1 tablet once a day with meals Atorvastatin ND 50699461231 40 MG Active TAKE 1 Calcium TABLET BY MOUTH AT BEDTIME. Clopidogrel [facility] 05810682169 75 MG Active TAKE 1 Bisulfate TABLET BY MOUTH EVERY DAY Spironolactone [facility] 33280009266 25 MG Orally Active 1 tablet Once a day with food Cyclobenzaprine [facility] 82935248023 10 MG Orally Aug Active 1 tablet HCl one time a day 17, as needed 2017 Victoza [facility] 00254526729 18 MG/3ML Active not Subcutaneous defined Accu-Chek SoftClix [facility] 53567183126 1 InVitro Active As Lancet Directed Aspir-[address] [facility] 05834887429 81 MG Orally Active 1 tablet Once a day Kyler Felipe [facility] 56543430261 300 UNIT/ML Active not Subcutaneous defined Results No Known Results Summary Purpose eClinicalWorks Submission
--- OUTSIDE RECORDS SUMMARY | 2018-12-23 16:25 | XMS REPORT ---
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
--- OUTSIDE RECORDS SUMMARY | 2018-12-23 16:25 | XMS REPORT ---
[...] of intravascular stent Z95.828 Active placement Assessment correction current use of insulin Z79.4 Active Problem Chronic kidney disease, stage 3 N18.3 Active Problem Sciatica M54.30 Active Problem CKD (chronic kidney disease) stage N18.3 Active 3, GFR 30-59 ml/min Medications Medication Code Code Instructions Start End Status Dosage System Date Date Narcisa Contour Next [facility] 19671893279 - Active USE 3 Test TIMES A DAY E11.9 Omeprazole [facility] 39762664660 40 MG Active TAKE BY MOUTH 1 CAPSULE ADA Lisinopril ND 19715965149 20 MG Active TAKE 1 TABLET BY MOUTH EVERY DAY Lasix ND 02000879546 20 MG Orally Active 2 tablet Once a day BD Insulin Syringe ND 07278439676 31G X 5/16 Active not Ultrafine defined Glucometer Kit NDC 0 Fingerstick Jan 03March Active Check BS BID 2017, twice a 2025 day Narcisa Microlet ND 45356587180 - use lancets April 27, Active as Lancets three times a 2017 Atorvastatin ND 77108437996 40 MG Orally Active 1 tablet Calcium Once a day Metoprolol [facility] 83702646134 100 MG Active TAKE BY Succinate ER MOUTH 1 TABLET DAILY BD Insulin Syringe ND 55329349245 31G X 5/16 Active not Ultrafine defined Toujeo SoloStar [facility] 48725258200 300 UNIT/ML Active not Subcutaneous defined Metformin HCl ND 94584143768 1000 MG Orally Active 1 tablet once a day with meals Glucometer Kit NDC 0 Fingerstick Jan 03March Active Check BS TID 2017, three 2025 times a day Guaifenesin ND 79808345730 200 MG Orally Active 1 tablet every 4 hrs as needed Magnesium ND 23297930090 500 MG Orally Active 1 tablet Once a day with a meal Aspir-81 ND 69513506521 81 MG Orally Active 1 tablet Once a day Neomycin-Polymyxin ND 90978625498 3.5-59060-6 Active 4 drops -HC Otic Three into times a day affected ear Clopidogrel ND 29483214321 75 MG Active TAKE 1 Bisulfate TABLET BY MOUTH EVERY DAY Spironolactone ND 92874397229 25 MG Orally Active 1 tablet Once a day with food Cyclobenzaprine [facility] 72827785798 10 MG Orally Aug Active 1 tablet HCl one time a day 17, as needed 2018 Narcisa Microlet [facility] 40785664593 - Active USE 3 Lancets TIMES A DAY E11.9 Humalog KwikPen [facility] 70027900804 100 UNIT/ML Active not Subcutaneous defined Atorvastatin [facility] 05658403072 40 MG Active TAKE 1 Calcium TABLET BY MOUTH AT BEDTIME. Victoza [facility] 15702461495 18 MG/3ML Active not Subcutaneous defined Vitamin B-12 ER [facility] 84337685171 1000 MCG Orally Active 1 tablet Once a day Lancets [facility] 27782149199 - Active not defined Accu-Chek SoftClix [facility] 19066673970 1 InVitro Active As Lancet Directed Results No Known Results Summary Purpose eClinicalWorks Submission
--- OUTSIDE RECORDS SUMMARY | 2018-12-23 16:26 | XMS REPORT ---
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 Problem Degenerative disc disease, lumbar M51.36 Active Problem Morbid obesity due to excess E66.01 Active calories Problem Menopause present Z78.0 Active Problem Hypomagnesemia E83.42 Active Problem H/O section Z98.891 Active Problem Chronic hyperkalemia E87.5 Active Problem Seasonal allergic rhinitis, J30.2 Active unspecified trigger Problem History of ischemic stroke without Z86.73 Active residual deficits Problem Acute otitis externa of right ear, H60.501 Active unspecified type Problem Edema R60.9 Active Problem Morbid obesity E66.01 Active Problem Primary osteoarthritis of right M17.11 Active knee Problem Peripheral vascular disease I73.9 Active Problem Bilateral lower extremity edema R60.0 Active Problem Cough R05 Active Problem Muscle spasm of both lower legs M62.838 Active Problem Hospital discharge follow-up Z09 Active Problem Sciatica M54.30 Active Problem CKD (chronic kidney disease) stage N18.3 Active 3, GFR 30-59 ml/min Problem PVD (peripheral vascular disease) I73.9 Active Problem Chronic a-fib I48.2 Active Problem Other iron deficiency anemia D50.8 Active Problem Essential hypertension I10 Active Problem History of intravascular stent Z95.828 Active placement Problem Chronic kidney disease, stage 3 N18.3 Active Medications No Known Medications Results No Known Results Summary Purpose eClinicalWorks Submission
--- OUTSIDE RECORDS SUMMARY | 2018-12-23 16:26 | XMS REPORT ---
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
--- OUTSIDE RECORDS SUMMARY | 2018-12-23 16:26 | XMS REPORT ---
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
--- OUTSIDE RECORDS SUMMARY | 2018-12-23 16:26 | XMS REPORT ---
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
--- OUTSIDE RECORDS SUMMARY | 2018-12-23 16:26 | XMS REPORT ---
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 54035992360 10 MG Oral once Active TAKE 1 HCl daily TABLET BY MOUTH EVERY DAY NEEDED Results No Known Results Summary Purpose eClinicalWorks Submission
--- OUTSIDE RECORDS SUMMARY | 2018-12-23 16:26 | XMS REPORT ---
[...] Status Dosage System Date Date Cyclobenzaprine HCl [facility] 51163788141 10 MG Oral May 27, Active TAKE 1 2018 TABLET BY MOUTH EVERY DAY NEEDED Results No Known Results Summary Purpose eClinicalWorks Submission
--- OUTSIDE RECORDS SUMMARY | 2018-12-23 16:26 | XMS REPORT ---
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
--- NOTE | 2018-12-23 18:08 | RAD REPORT ---
EXAM DESCRIPTION: RAD - Knee Right 3 View - 12/23/2018 5:56 pm CLINICAL HISTORY: Right knee pain. FINDINGS: No fracture or dislocation is seen. Bones are osteoporotic. Moderate medial joint space narrowing is present.
--- NOTE | 2018-12-23 18:19 | EDPHYS ---
Physician Documentation [facility] Name: Evelia Reis Age: 63 yrs Sex: Female : 1955 Arrival Date: 12/23/2018 Time: 16:29 Bed 11 Private MD: Marcelle Dale ED Physician Pancho Martinez HPI: 12/23 18:21 This 63 yrs old Female presents to ER via Ambulatory with complaints of Knee kb Injury. 18:21 The patient presents with an injury, pain, that is acute. The complaints affect the kb right knee. Context: The problem was sustained outdoors, resulted from a mis-step, the patient can partially bear weight, uses a walker, Problem is a result from a previous injury: Yes. Onset: The symptoms/episode began/occurred yesterday. Modifying factors: The symptoms are alleviated by nothing. the symptoms are aggravated by weight bearing. Associated signs and symptoms: The patient has no apparent associated signs or symptoms. Treatment prior to arrival includes: patti wrap. Severity of symptoms: At their worst the symptoms were mild, in the emergency department the symptoms are unchanged. The patient has not experienced similar symptoms in the past. The patient has not recently seen a physician. Pt reports she hurt her knee in September, but there was no fracture. Yesterday she stepped off of a bus and heard a pop in the same knee.. Historical: - Allergies: 16:53 Amoxicillin; sg 16:53 NSAIDS; sg - PMHx: 16:53 CVA; Diabetes - IDDM; Hyperlipidemia; Hypertension; ischemic stroke; sg - PSHx: 16:53 right great toe amputation; sg - Immunization history:: Adult Immunizations up to date. - Social history:: Smoking status: Patient/guardian denies using tobacco. - Ebola Screening: : Patient negative for fever greater than or equal to 101.5 degrees Fahrenheit, and additional compatible Ebola Virus Disease symptoms Patient denies exposure to infectious person Patient denies travel to an Ebola-affected area in the 21 days before illness onset No symptoms or risks identified at this time. ROS: 18:19 Constitutional: Negative for fever, chills, and weight loss, Cardiovascular: Negative kb for chest pain, palpitations, and edema, Respiratory: Negative for shortness of breath, cough, wheezing, and pleuritic chest pain, Abdomen/GI: Negative for abdominal pain, nausea, vomiting, diarrhea, and constipation, Back: Negative for injury and pain, Skin: Negative for injury, rash, and discoloration, Neuro: Negative for headache, weakness, numbness, tingling, and seizure. 18:19 MS/extremity: Positive for pain, of the right knee. Exam: 18:19 Constitutional: This is a well developed, well nourished patient who is awake, alert, kb and in no acute distress. Head/Face: Normocephalic, atraumatic. Chest/axilla: Normal chest wall appearance and motion. Nontender with no deformity. No lesions are appreciated. Cardiovascular: Regular rate and rhythm with a normal S1 and S2. No gallops, murmurs, or rubs. Normal PMI, no JVD. No pulse deficits. Respiratory: Lungs have equal breath sounds bilaterally, clear to auscultation and percussion. No rales, rhonchi or wheezes noted. No increased work of breathing, no retractions or nasal flaring. Abdomen/GI: Soft, non-tender, with normal bowel sounds. No distension or tympany. No guarding or rebound. No evidence of tenderness throughout. Skin: Warm, dry with normal turgor. Normal color with no rashes, no lesions, and no evidence of cellulitis. MS/ Extremity: Pulses equal, no cyanosis. Neurovascular intact. Full, normal range of motion. Neuro: Awake and alert, GCS 15, oriented to person, place, time, and situation. Cranial nerves II-XII grossly intact. Motor strength 5/5 in all extremities. Sensory grossly intact. Cerebellar exam normal. Normal gait. Vital Signs: 16:50 BP 135 / 58; Pulse 76; Resp 17; Temp 98.1; Pulse Ox 100% ; Pain 8/10; sg MDM: 17:12 Patient medically screened. kb 18:20 Data reviewed: vital signs, nurses notes. Data interpreted: Pulse oximetry: on room air kb is 100 %. Interpretation: normal. Counseling: I had a detailed discussion with the patient and/or guardian regarding: the historical points, exam findings, and any diagnostic results supporting the discharge/admit diagnosis, radiology results, the need for outpatient follow up, a orthopedic surgeon, to return to the emergency department if symptoms worsen or persist or if there are any questions or concerns that arise at home. 12/23 17:14 Order name: Knee Right 3 View XRAY; Complete Time: 18:11 kb Administered Medications: No medications were administered Disposition: 18:27 Co-signature as Attending Physician, Pancho Martinez MD. rn Disposition: 12/23/18 18:19 Discharged to Home. Impression: Pain in right knee. - Condition is Stable. - Discharge Instructions: Knee Pain, [id number]. - Medication Reconciliation Form, Thank You Letter, Antibiotic Education, Prescription Opioid Use form. - Follow up: Private Physician; When: 2 - 3 days; Reason: Recheck today's complaints, Continuance of care, Re-evaluation by your physician. Follow up: Emergency Department; When: As needed; Reason: Worsening of condition. Signatures: Dispatcher [employer] EDMS Whit Bernstein, KEISHA GIS COORDINATOR-Gordon Sullivan, RN RN Pancho Kate MD MD rn Rolando Gomez RN RN rv Corrections: (The following items were deleted from the chart) 18: 18:19 12/23/2018 18:19 Discharged to Home. Impression: Pain in right knee. Condition is rv Stable. Forms are Medication Reconciliation Form, Thank You Letter, Antibiotic Education, Prescription Opioid Use. Follow up: Private Physician; When: 2 - 3 days; Reason: Recheck today's complaints, Continuance of care, Re-evaluation by your physician. Follow up: Emergency Department; When: As needed; Reason: Worsening of condition. kb
--- NOTE | 2018-12-23 18:19 | ER ---
Nurse's Notes [facility] Name: Evelia Reis Age: 63 yrs Sex: Female : 1955 Arrival Date: 12/23/2018 Time: 16:29 Bed 11 Private MD: Marcelle Dale Diagnosis: Pain in right knee Presentation: 12/23 16:53 Presenting complaint: Patient states: was getting off the bus and felt and heard a loud sg pop in my right knee, denies fall or trauma, hurts to walk on. Transition of care: patient was not received from another setting of care. Onset of symptoms was December 23, 2018. Risk Assessment: Do you want to hurt yourself or someone else? Patient reports no desire to harm self or others. Initial Sepsis Screen: Does the patient meet any 2 criteria? No. Patient's initial sepsis screen is negative. Does the patient have a suspected source of infection?. Care prior to arrival: None. 16:53 Method Of Arrival: Ambulatory sg 16:53 Acuity: SHERRI 4 sg Triage Assessment: 18:26 General: Appears in no apparent distress. Behavior is calm, cooperative. Pain: rv Complains of pain in right knee. Musculoskeletal: Reports pain in right knee. Historical: - Allergies: 16:53 Amoxicillin; sg 16:53 NSAIDS; sg - PMHx: 16:53 CVA; Diabetes - IDDM; Hyperlipidemia; Hypertension; ischemic stroke; sg - PSHx: 16:53 right great toe amputation; sg - Immunization history:: Adult Immunizations up to date. - Social history:: Smoking status: Patient/guardian denies using tobacco. - Ebola Screening: : Patient negative for fever greater than or equal to 101.5 degrees Fahrenheit, and additional compatible Ebola Virus Disease symptoms Patient denies exposure to infectious person Patient denies travel to an Ebola-affected area in the 21 days before illness onset No symptoms or risks identified at this time. Screenin:26 Abuse screen: Denies threats or abuse. Denies injuries from another. Nutritional rv screening: No deficits noted. Tuberculosis screening: No symptoms or risk factors identified. Fall Risk None identified. Assessment: 17:10 General: Appears in no apparent distress. uncomfortable. rv Vital Signs: 16:50 BP 135 / 58; Pulse 76; Resp 17; Temp 98.1; Pulse Ox 100% ; Pain 8/10; sg ED Course: 16:29 Patient arrived in ED. sb2 16:29 Marcelle Dale MD is Private Physician. sb2 16:54 Triage completed. sg 16:54 Arm band placed on. sg 17:12 [facility] Bernstein [facility]C [facility]. kb 17:12 Pancho Martinez MD is Attending Physician. kb 18:05 Knee Right 3 View XRAY In Process Unspecified. EDMS 18:26 Patient has correct armband on for positive identification. Bed in low position. Call rv light in reach. Pulse ox on. NIBP on. 18:26 No provider procedures requiring assistance completed. Patient did not have IV access rv during this emergency room visit. Administered Medications: No medications were administered Outcome: 18:19 Discharge ordered by . kb 18:27 Discharged to home via wheelchair. rv 18:27 Condition: good 18:27 Discharge instructions given to patient, Instructed on discharge instructions, follow up and referral plans. Demonstrated understanding of instructions, follow-up care. 18:27 Patient left the ED. rv Signatures: Dispatcher [employer] EDMS Whit Bernstein FNP-C FNP-Gordon Sullivan, RN RN Heidi Reed sb2 Rolando Gomez, RN RN rv
[2018-12-23 20:05] VITALS: BP 135/58; TEMP 98.1; O2SAT 100
== END 2018-12-23 18:27 | disposition home or self-care (01) ==
LOC: ER 16:23
DX: M25.561 Pain in right knee (principal)
CPT/HCPCS: 99283

== ENCOUNTER 2019-08-02 09:49 | Emergency (ER) | payer OTHER ==
--- OUTSIDE RECORDS SUMMARY | 2019-08-02 09:51 | XMS REPORT ---
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9 Active Problem Acute pharyngitis, unspecified J02.9 Active etiology Problem Edema R60.9 Active Problem Muscle spasm of both lower legs M62.838 Active Problem Hospital discharge follow-up Z09 Active Problem History of ischemic stroke without Z86.73 Active residual deficits Problem Acute otitis externa of right ear, H60.501 Active unspecified type Problem History of intravascular stent Z95.828 Active placement Problem Chronic kidney disease, stage 3 N18.3 Active Problem Sciatica M54.30 Active Problem CKD (chronic kidney disease) stage N18.3 Active 3, GFR 30-59 ml/min Problem Morbid obesity due to excess E66.01 Active calories Problem Menopause present Z78.0 Active Problem Other iron deficiency anemia D50.8 Active Problem Essential hypertension I10 Active Medications Medication Code Code Instructions Start End Date Status Dosage System Date [facility] [id number] 1 In [facility] Jul 24January Active check times a day 2018 blood sugar Results No Known Results Summary Purpose eClinicalWorks Submission
[2019-08-02 10:28] LABS: Absolute Lymphocytes (CBC) 1.6 K/uL (0.7-4.9); Basophils % 0.7 % (0-1.3); Hematocrit 30.6 % (36.0-45.0); Lymphocytes % 17.4 % (15.3-44.8); MPV 7.5 fL (7.6-11.3); RBC Red Blood Cell Count 3.42 M/uL (3.86-4.86)
[2019-08-02 10:35] LABS: Protime INR 0.94
[2019-08-02 10:52] LABS: ALT/SGPT 15 U/L (12-78); AST/SGOT 13 U/L (15-37); Albumin 3.4 g/dL (3.4-5.0); Alkaline Phosphatase 137 U/L (45-117); BUN Blood Urea Nitrogen 27 mg/dL (7-18); Bicarbonate 27 mmol/L (21-32); Bilirubin Direct < 0.1 mg/dL (0-0.2); Bilirubin Total 0.2 mg/dL (0.2-1.0); Glucose Level 99 mg/dL (74-106); Magnesium 2.3 mg/dL (1.8-2.4); NT PRO-BNP 1059 pg/mL (<125); Potassium 4.2 mmol/L (3.5-5.1); Protein, Total 7.4 g/dL (6.4-8.2); Sodium Level 142 mmol/L (136-145); Troponin (Emerg Dept Use Only) < 0.02 ng/mL (0.0-0.045)
[2019-08-02 11:16] LABS: Urine Bacteria <20 /HPF (<20); Urine RBC <5 /HPF (NONE SEEN)
[2019-08-02 11:17] LABS: Urine Culture Reflex Order REFLEXED
[2019-08-02 11:47] LABS: Urine Blood NEGATIVE (NEG); Urine Glucose NEGATIVE (NEG); Urine Protein 1+ (NEG); Urine Specific Gravity 1.025 (1.005-1.030); Urine pH 5.5 (5.0-7.0)
--- NOTE | 2019-08-02 13:23 | RAD REPORT ---
EXAM DESCRIPTION: Denice Single View08/02/2019 10:23 am CLINICAL HISTORY: sob COMPARISON: 2016 FINDINGS: Mild interstitial pulmonary opacities suspected The heart is mildly enlarged IMPRESSION: Mild CHF
[2019-08-02] MEDS ORDERED: FUROSEMIDE 40 MG/4 ML VIAL ONE (13:51)
--- NOTE | 2019-08-02 14:33 | EDPHYS ---
Physician Documentation [facility] Name: Evelia Reis Age: 64 yrs Sex: Female : 1955 Arrival Date: 08/02/2019 Time: 09:51 Bed 8 Private MD: Marcelle Dale ED Physician Maxim Echevarria HPI: 08/02 10:15 This 64 yrs old Female presents to ER via Ambulatory with complaints of kdr Shortness Of Breath. 10:15 The patient has shortness of breath with light activity. Onset: The symptoms/episode kdr began/occurred gradually, 3 day(s) ago. Duration: The symptoms are intermittent, with no pattern, Usually exacerbated by exertion. The patient's shortness of breath is aggravated by exertion, light activity, walking, is alleviated by rest. Associated signs and symptoms: The patient has no apparent associated signs or symptoms. Severity of symptoms: At their worst the symptoms were mild in the emergency department the symptoms have improved mildly. The patient has not experienced similar symptoms in the past. The patient has not recently seen a physician. Historical: - Allergies: 09:54 Amoxicillin; hb 09:54 NSAIDS; hb - Home Meds: 09:59 aspirin 81 mg Oral TbEC 1 tab once daily [Active]; atorvastatin 40 mg Oral tab 1 tab tw2 once daily [Active]; Flexeril 10 mg Oral tab [Active]; glargine 300 Units [Active]; Golytely 236-22.74-6.74 -5.86 gram Oral solr [Active]; Humalog Pen Sub-Q [Active]; lisinopril 40 mg Oral tab 1 tab once daily [Active]; metformin 1,000 mg Oral tr24 1 tab once daily [Active]; metoprolol succinate 100 mg Oral Tb24 1 tab once daily [Active]; omeprazole 40 mg Oral cpDR 1 cap once daily [Active]; spironolactone 25 mg Oral tab 1 tab 2 times per day [Active]; victoza [Active]; Vitamin D Oral [Active]; - PMHx: 09:59 CVA; Hyperlipidemia; Hypertension; Diabetes - IDDM; ischemic stroke; tw2 - PSHx: 09:59 right great toe amputation; tw2 - Immunization history:: Adult Immunizations up to date. - Social history:: Smoking status: Patient/guardian denies using tobacco. - Ebola Screening: : No symptoms or risks identified at this time. ROS: 10:15 Constitutional: Negative for fever, chills, and weight loss, Eyes: Negative for injury, kdr pain, redness, and discharge, Neck: Negative for injury, pain, and swelling, Cardiovascular: Negative for chest pain, palpitations, and edema, Respiratory: Negative for shortness of breath, cough, wheezing, and pleuritic chest pain, Abdomen/GI: Negative for abdominal pain, nausea, vomiting, diarrhea, and constipation, Back: Negative for injury and pain, : Negative for injury, bleeding, discharge, and swelling, MS/Extremity: Negative for injury and deformity, Skin: Negative for injury, rash, and discoloration - she does have 2+ chronic pitting edema Neuro: Negative for headache, weakness, numbness, tingling, and seizure activity. Psych: Negative for depression, anxiety, suicide ideation, homicidal ideation, and hallucinations, Allergy/Immunology: Negative for hives, rash, and allergies, Endocrine: Negative for neck swelling, polydipsia, polyuria, polyphagia, and marked weight changes, Hematologic/Lymphatic: Negative for swollen nodes, abnormal bleeding, and unusual bruising. Exam: 10:15 Constitutional: This is a well developed, well nourished obese patient who is awake, kdr alert, and in no acute distress. Head/Face: Normocephalic, atraumatic. Eyes: Pupils equal round and reactive to light, extra-ocular motions intact. Lids and lashes normal. Conjunctiva and sclera are non-icteric and not injected. Cornea within normal limits. Periorbital areas with no swelling, redness, or edema. Neck: Trachea midline, no thyromegaly or masses palpated, and no cervical lymphadenopathy. Supple, full range of motion without nuchal rigidity, or vertebral point tenderness. No Meningismus. Chest/axilla: Normal chest wall appearance and motion. Nontender with no deformity. No lesions are appreciated. Cardiovascular: Regular rate and rhythm with a normal S1 and S2. No gallops, murmurs, or rubs. Normal PMI, no JVD. No pulse deficits. Respiratory: Lungs have equal breath sounds bilaterally, clear to auscultation and percussion. No rales, rhonchi or wheezes noted. No increased work of breathing, no retractions or nasal flaring. Abdomen/GI: Soft, non-tender, with normal bowel sounds. No distension or tympany. No guarding or rebound. No evidence of tenderness throughout. Back: No spinal tenderness. No costovertebral tenderness. Full range of motion. Skin: Warm, dry with normal turgor. Normal color with no rashes, no lesions, and no evidence of cellulitis. 10:15 Abdomen/GI: Inspection: obese 10:15 Neuro: Awake and alert, GCS 15, oriented to person, place, time, and situation. kdr Cranial nerves II-XII grossly intact. Motor strength 5/5 in all extremities. Sensory grossly intact. Cerebellar exam normal. Normal gait. Psych: Awake, alert, with orientation to person, place and time. Behavior, mood, and affect are within normal limits. Vital Signs: 09:54 BP 173 / 76; Pulse 68; Resp 16; Temp 97.6; Pulse Ox 100% on R/A; Weight 127.01 kg; hb Height 5 ft. 3 in. (160.02 cm); Pain 3/10; 10:30 BP 142 / 60; Pulse 61; Resp 16; Pulse Ox 99% ; sv 11:30 BP 182 / 89; Pulse 67; Resp 18; Pulse Ox 100% ; sv 11:33 BP 154 / 64 RA (auto/reg); mb4 12:30 BP 114 / 89; Pulse 63; Resp 20; Pulse Ox 100% ; sv 13:00 BP 118 / 96; Pulse 61; Resp 20; Pulse Ox 100% ; sv 13:30 BP 157 / 84; Pulse 60; Resp 18; Pulse Ox 98% ; sv 14:30 BP 157 / 84; Pulse 64; Resp 17; Pulse Ox 97% on R/A; tw2 15:18 BP 170 / 65; Pulse 74; Resp 17; Pulse Ox 99% on R/A; tw2 09:54 Body Mass Index 49.60 (127.01 kg, 160.02 cm) hb MDM: 10:15 Data reviewed: vital signs, nurses notes, lab test result(s), radiologic studies. kdr Counseling: I had a detailed discussion with the patient and/or guardian regarding: the historical points, exam findings, and any diagnostic results supporting the discharge/admit diagnosis, lab results, radiology results. 14:31 Patient medically screened. [facility] 08/02 10:00 Order name: Basic Metabolic Panel; Complete Time: 12:25 [facility] 08/02 10:00 Order name: CBC with Diff; Complete Time: 12:25 [facility] 08/02 10:00 Order name: LFT's; Complete Time: 12: [facility] 08/02 10:00 Order name: Magnesium; Complete Time: 12:25 [facility] 08/02 10:00 Order name: NT PRO-BNP; Complete Time: 12:25 [facility] 08/02 10:00 Order name: PT-INR; Complete Time: 12: [facility] 08/02 10:00 Order name: Troponin (emerg Dept Use Only); Complete Time: 12:25 [facility] 08/02 10:00 Order name: XRAY Chest (1 view); Complete Time: 13:29 [facility] 08/02 10:00 Order name: EKG; Complete Time: 10: [facility] 08/02 10:49 Order name: Urine Dipstick--Ancillary (enter results); Complete Time: 12:25 hb 08/02 10:52 Order name: Urine Microscopic Only; Complete Time: 12:25 hb 08/02 11:20 Order name: Urine Culture EDPR 08/02 13:30 Order name: Troponin (emerg Dept Use Only); Complete Time: 14:28 [facility] 08/02 10:00 Order name: Cardiac monitoring; Complete Time: : [facility] 08/02 10:00 Order name: EKG - Nurse/Tech; Complete Time: : [facility] 08/02 10:00 Order name: IV Saline Lock; Complete Time: 10: [facility] 08/02 10:00 Order name: Labs collected and sent; Complete Time: : [facility] 08/02 10:00 Order name: O2 Per Protocol; Complete Time: : [facility] 08/02 10:00 Order name: O2 Sat Monitoring; Complete Time: 10:18 [facility] Administered Medications: 14:00 Drug: Lasix 40 mg Route: IVP; Site: left antecubital; tw2 15:18 Follow up: Response: No adverse reaction tw2 Disposition: 08/02/19 14:32 Discharged to Home. Impression: Unspecified systolic (congestive) heart failure. - Condition is Stable. - Medication Reconciliation Form, Thank You Letter, Antibiotic Education, Prescription Opioid Use form. - Follow up: Marcelle Dael MD; When: 2 - 3 days; Reason: If symptoms return, Further diagnostic work-up, Recheck today's complaints, Continuance of care, Re-evaluation by your physician. - Problem is new. - Symptoms have improved. Signatures: Dispatcher [employer] EDMS Maxim Echevarria MD MD kdr Marietta Bejarano RN RN Carolina Porter RN RN tw2 Corrections: (The following items were deleted from the chart) 15:28 14:32 08/02/2019 14:32 Discharged to Home. Impression: Unspecified systolic hb (congestive) heart failure. Condition is Stable. Forms are Medication Reconciliation Form, Thank You Letter, Antibiotic Education, Prescription Opioid Use. Follow up: Marcelle Dale; When: 2 - 3 days; Reason: If symptoms return, Further diagnostic work-up, Recheck today's complaints, Continuance of care, Re-evaluation by your physician. Problem is new. Symptoms have improved. kdr
--- NOTE | 2019-08-02 14:33 | ER ---
Nurse's Notes [facility] Name: Evelia Reis Age: 64 yrs Sex: Female : 1955 Arrival Date: 08/02/2019 Time: 09:51 Bed 8 Private MD: Marcelle Dale Diagnosis: Unspecified systolic (congestive) heart failure Presentation: 08/02 09:53 Presenting complaint: SOB and chest pressure x 3 days. Denies cough/fever. Transition hb of care: patient was not received from another setting of care. Onset of symptoms was July 30, 2019. Risk Assessment: Do you want to hurt yourself or someone else? Patient reports no desire to harm self or others. Initial Sepsis Screen: Does the patient meet any 2 criteria? No. Patient's initial sepsis screen is negative. Does the patient have a suspected source of infection? No. Patient's initial sepsis screen is negative. Care prior to arrival: None. 09:53 Method Of Arrival: Ambulatory hb 09:53 Acuity: SHERRI 3 hb Triage Assessment: 09:56 General: Appears in no apparent distress. obese, well groomed, Behavior is calm, tw2 cooperative, appropriate for age. Pain: Denies pain. Respiratory: Reports shortness of breath Onset: The symptoms/episode began/occurred 3 days now, the patient has mild shortness of breath. Historical: - Allergies: 09:54 Amoxicillin; hb 09:54 NSAIDS; hb - Home Meds: 09:59 aspirin 81 mg Oral TbEC 1 tab once daily [Active]; atorvastatin 40 mg Oral tab 1 tab tw2 once daily [Active]; Flexeril 10 mg Oral tab [Active]; glargine 300 Units [Active]; Golytely 236-22.74-6.74 -5.86 gram Oral solr [Active]; Humalog Pen Sub-Q [Active]; lisinopril 40 mg Oral tab 1 tab once daily [Active]; metformin 1,000 mg Oral tr24 1 tab once daily [Active]; metoprolol succinate 100 mg Oral Tb24 1 tab once daily [Active]; omeprazole 40 mg Oral cpDR 1 cap once daily [Active]; spironolactone 25 mg Oral tab 1 tab 2 times per day [Active]; victoza [Active]; Vitamin D Oral [Active]; - PMHx: 09:59 CVA; Hyperlipidemia; Hypertension; Diabetes - IDDM; ischemic stroke; tw2 - PSHx: 09:59 right great toe amputation; tw2 - Immunization history:: Adult Immunizations up to date. - Social history:: Smoking status: Patient/guardian denies using tobacco. - Ebola Screening: : No symptoms or risks identified at this time. Screenin:56 Abuse screen: Denies threats or abuse. Nutritional screening: No deficits noted. tw2 Tuberculosis screening: No symptoms or risk factors identified. Fall Risk Secondary diagnosis (15 points) impaired mobility. Assessment: 10:18 General: Appears in no apparent distress. obese, well groomed, Behavior is calm, tw2 cooperative, appropriate for age. Pain: Denies pain. Neuro: Level of Consciousness is awake, alert, obeys commands, Oriented to person, place, time, situation. Cardiovascular: Heart tones S1 S2 Patient's skin is warm and dry. Edema is 1+ to left midcalf, left ankle, right midcalf and right ankle Rhythm is regular. Respiratory: Reports shortness of breath Airway is patent Respiratory effort is even, unlabored, Respiratory pattern is regular, symmetrical, Breath sounds are clear bilaterally. Denies cough. GI: No signs and/or symptoms were reported involving the gastrointestinal system. Abdomen is round non-distended, obese, Bowel sounds present X 4 quads. : No signs and/or symptoms were reported regarding the genitourinary system. EENT: No signs and/or symptoms were reported regarding the EENT system. Derm: No signs and/or symptoms reported regarding the dermatologic system. Musculoskeletal: Range of motion: intact in all extremities. 10:37 Reassessment: pt in w/c with Talya Giraldo to restroom at this time, specimen cup tw2 given. 11:20 Reassessment: Patient appears in no apparent distress at this time. No changes from tw2 previously documented assessment. Patient and/or family updated on plan of care and expected duration. Pain level reassessed. Patient is alert, oriented x 3, equal unlabored respirations, skin warm/dry/pink. 12:18 Reassessment: Patient appears in no apparent distress at this time. No changes from tw2 previously documented assessment. Patient and/or family updated on plan of care and expected duration. Pain level reassessed. Patient is alert, oriented x 3, equal unlabored respirations, skin warm/dry/pink. 13:20 Reassessment: Patient appears in no apparent distress at this time. No changes from tw2 previously documented assessment. Patient and/or family updated on plan of care and expected duration. Pain level reassessed. Patient is alert, oriented x 3, equal unlabored respirations, skin warm/dry/pink. 14:20 Reassessment: Patient appears in no apparent distress at this time. No changes from tw2 previously documented assessment. Patient and/or family updated on plan of care and expected duration. Pain level reassessed. Patient is alert, oriented x 3, equal unlabored respirations, skin warm/dry/pink. 15:19 Reassessment: Patient appears in no apparent distress at this time. No changes from tw2 previously documented assessment. Patient and/or family updated on plan of care and expected duration. Pain level reassessed. Patient is alert, oriented x 3, equal unlabored respirations, skin warm/dry/pink. Vital Signs: 09:54 BP 173 / 76; Pulse 68; Resp 16; Temp 97.6; Pulse Ox 100% on R/A; Weight 127.01 kg; hb Height 5 ft. 3 in. (160.02 cm); Pain 3/10; 10:30 BP 142 / 60; Pulse 61; Resp 16; Pulse Ox 99% ; sv 11:30 BP 182 / 89; Pulse 67; Resp 18; Pulse Ox 100% ; sv 11:33 BP 154 / 64 RA (auto/reg); mb4 12:30 BP 114 / 89; Pulse 63; Resp 20; Pulse Ox 100% ; sv 13:00 BP 118 / 96; Pulse 61; Resp 20; Pulse Ox 100% ; sv 13:30 BP 157 / 84; Pulse 60; Resp 18; Pulse Ox 98% ; sv 14:30 BP 157 / 84; Pulse 64; Resp 17; Pulse Ox 97% on R/A; tw2 15:18 BP 170 / 65; Pulse 74; Resp 17; Pulse Ox 99% on R/A; tw2 09:54 Body Mass Index 49.60 (127.01 kg, 160.02 cm) ED Course: 09:51 Patient arrived in ED. rg4 09:51 Marcelle Dale MD is Private Physician. rg4 09:54 Triage completed. hb 09:54 Arm band placed on left wrist. hb 09:56 Carolina Porter, RN is Primary Nurse. tw2 09:56 Placed in gown. Bed in low position. copywriter on. Pulse ox on. NIBP on. tw2 09:59 Maxim Echevarria MD is Attending Physician. kdr 10:00 EKG done, by ED staff, reviewed by Maxim Echevarria MD. mb4 10:10 Inserted saline lock: 22 gauge in left antecubital area, using aseptic technique. Blood tw2 collected. 10:22 XRAY Chest (1 view) In Process Unspecified. EDMS 10:40 Assisted to bathroom. mb4 10:49 Urine collected: clean catch specimen, clear. mb4 10:50 Pulse ox on. NIBP on. mb4 11:43 Urine Dipstick--Ancillary (enter results) Sent. mb4 14:01 Troponin (emerg Dept Use Only) Sent. tw2 14:29 Marcelle Dale MD is Referral Physician. kdr 15:28 No provider procedures requiring assistance completed. IV discontinued, intact, tw2 bleeding controlled, No redness/swelling at site. Pressure dressing applied. Administered Medications: 14:00 Drug: Lasix 40 mg Route: IVP; Site: left antecubital; tw2 15:18 Follow up: Response: No adverse reaction tw2 Outcome: 14:31 Discharge ordered by . kdr 15:28 Patient left the ED. hb 15:28 Discharged to home ambulatory. tw2 15:28 Condition: stable 15:28 Discharge instructions given to patient, Instructed on discharge instructions, follow up and referral plans. Demonstrated understanding of instructions, follow-up care. Signatures: Dispatcher [employer] OLENAOR Modesta Strauss, RN ALEXIA Maxim Echevarria MD MD [facility] Marietta Bejarano RN RN Carolina Porter RN RN 2 Taylor De Jesus [facility] Kristal Bejarano [facility]
[2019-08-02 15:54] VITALS: TEMP 97.6
[2019-08-02 16:04] VITALS: BP 170/65; O2SAT 99
--- NOTE | 2019-08-03 18:24 | EKG ---
Test Date: 2019-08-02 Test Time: 10:01:42 Development Chemist: OMAR MEASUREMENT RESULTS: Intervals: Rate: 71 IA: 130 QRSD: 94 QT: 416 QTc: 452 [place]: P: 57 IA: 130 QRS: 3 T: 4 INTERPRETIVE STATEMENTS: Normal sinus rhythm Incomplete right bundle branch block Minimal voltage criteria for LVH, may be normal variant Borderline ECG Compared to ECG 02/13/2018 08:10:09 Incomplete right bundle-branch block now present Electronically Signed On 08-03-19 18:22:56 CDT by Yazan Quintero
== END 2019-08-02 15:28 | disposition home or self-care (01) ==
LOC: ER 09:49
DX: I50.20 Unspecified systolic (congestive) heart failure (principal); I10 Essential (primary) hypertension; E11.9 Type 2 diabetes mellitus without complications; E78.5 Hyperlipidemia, unspecified; Z86.73 Personal history of transient ischemic attack (TIA), and cerebral infarction without residual deficits; Z79.82 Long term (current) use of aspirin; Z79.4 Long term (current) use of insulin; Z88.1 Allergy status to other antibiotic agents; Z88.6 Allergy status to analgesic agent
CPT/HCPCS: 93005; 87088; 85025; 87086; 80048; 36415; 83735; 85610; 80076; 84484 ×2; 83880; 71045; 96374; 99285; J1940; 81003; 81015

== ENCOUNTER 2019-10-10 22:33 | Observation (INO) | payer OTHER ==
--- OUTSIDE RECORDS SUMMARY | 2019-10-10 22:35 | XMS REPORT ---
[...] Active Problem Mixed hyperlipidemia E78.2 Active Problem long term current use of insulin Z79.4 Active Problem [...] Active Problem Essential hypertension I10 Active Medications No Known Medications Results No Known Results Summary Purpose eClinicalWorks Submission
[2019-10-10] MEDS ORDERED: ONDANSETRON 4 MG/2 ML VIAL ONE (23:10)
[2019-10-10] MEDS ORDERED: FAMOTIDINE 20 MG/2 ML VIAL IV ONE (23:10)
[2019-10-10] MEDS ORDERED: NA CHLORIDE 0.9% 1,000 ML ONE (23:10)
[2019-10-11] LABS: Urine Blood 1+ (NEG); Urine Glucose NEGATIVE (NEG); Urine Protein 3+ (NEG); Urine Specific Gravity 1.025 (1.005-1.030)
[2019-10-11] LABS: Basophils % 0.6 % (0-1.3); Hematocrit 32.8 % (36.0-45.0); Lymphocytes % 8.2 % (15.3-44.8); MPV 7.6 fL (7.6-11.3); Protime INR 1.04; RBC Red Blood Cell Count 3.78 M/uL (3.86-4.86)
[2019-10-11] MEDS ORDERED: DICYCLOMINE HCL 10 MG CAP ONE (00:05)
[2019-10-11 00:19] LABS: Blood Morphology Comment NOT SEEN (NOT SEEN); Platelet Estimate ADEQ; Urine White Blood Cell Casts OK
[2019-10-11 00:36] LABS: ALT/SGPT 18 U/L (12-78); AST/SGOT 19 U/L (15-37); Albumin 3.6 g/dL (3.4-5.0); Alkaline Phosphatase 135 U/L (45-117); BUN Blood Urea Nitrogen 21 mg/dL (7-18); Bicarbonate 30 mmol/L (21-32); Bilirubin Direct < 0.1 mg/dL (0-0.2); Bilirubin Total 0.3 mg/dL (0.2-1.0); Glucose Level 123 mg/dL (74-106); Lipase 75 U/L (73-393); Magnesium 1.7 mg/dL (1.8-2.4); NT PRO-BNP 581 pg/mL (<125); Potassium 3.9 mmol/L (3.5-5.1); Protein, Total 8.4 g/dL (6.4-8.2); Sodium Level 140 mmol/L (136-145); Troponin (Emerg Dept Use Only) < 0.02 ng/mL (0.0-0.045)
--- NOTE | 2019-10-11 00:53 | EDPHYS ---
Physician Documentation [facility] Name: Evelia Reis Age: 64 yrs Sex: Female : 1955 Arrival Date: 10/10/2019 Time: 22:40 Bed 17 Private MD: ED Physician Otoniel Hidalgo HPI: 10/10 23:24 This 64 yrs old Female presents to ER via EMS with complaints of pardeep Nausea/Vomiting. 23:24 The patient presents to the emergency department with nausea, vomiting, abdominal pain, pardeep of the right upper quadrant, left upper quadrant, right lower quadrant and left lower quadrant. Onset: The symptoms/episode began/occurred just prior to arrival, 4 day(s) ago. Possible causes: bad food exposure, ramen noodles. The symptoms are aggravated by nothing. The symptoms are alleviated by nothing. Severity of symptoms: At their worst the symptoms were. Historical: - Allergies: 22:52 Amoxicillin; fc 22:52 NSAIDS; fc - Home Meds: 22:52 hydralazine 25 mg Oral tab 1 tab tid prn bp over 140/90 [Active]; metformin 1,000 mg fc Oral tr24 1 tab once daily [Active]; metoprolol succinate 100 mg Oral Tb24 1 tab once daily [Active]; atorvastatin 40 mg Oral tab 1 tab once daily [Active]; Plavix 75 mg Oral tab 1 tab once daily [Active]; Lasix 40 mg Oral tab 1 tab 3 times per day [Active]; omeprazole 40 mg Oral cpDR 1 cap once daily [Active]; Humalog Pen Sub-Q 14 unit before meals [Active]; Toujeo SoloStar 300 unit/mL (1.5 mL) subcutaneous inpn 60 unit daily [Active]; Victoza 2-Migel 0.6 mg/0.1 mL (18 mg/3 mL) subcutaneous pnij 0.3 mL before supper [Active]; aspirin 81 mg Oral TbEC 1 tab once daily [Active]; magnesium oxide 250 mg Oral tab daily [Active]; Vitamin B-12 1,000 mcg Oral tab daily [Active]; Vitamin D Oral 800 unit daily [Active]; - PMHx: 22:52 Diabetes - IDDM; GERD; Hypertension; CVA; Hyperlipidemia; ischemic stroke; Arthritis; fc sciatica; - PSHx: 22:52 right great toe amputation; fc - Immunization history:: Last tetanus immunization: unknown, Flu vaccine is not up to date. - Social history:: Smoking status: Patient/guardian denies using tobacco, Patient/guardian denies using alcohol, street drugs. - Ebola Screening: : Patient negative for fever greater than or equal to 101.5 degrees Fahrenheit, and additional compatible Ebola Virus Disease symptoms Patient denies exposure to infectious person Patient denies travel to an Ebola-affected area in the 21 days before illness onset. - Family history:: not pertinent. ROS: 23:24 Constitutional: Negative for fever, chills, and weight loss, Eyes: Negative for injury, pardeep pain, redness, and discharge, ENT: Negative for injury, pain, and discharge, Neck: Negative for injury, pain, and swelling, Cardiovascular: Negative for chest pain, palpitations, and edema, Respiratory: Negative for shortness of breath, cough, wheezing, and pleuritic chest pain, Back: Negative for injury and pain, : Negative for injury, bleeding, discharge, and swelling, MS/Extremity: Negative for injury and deformity, Skin: Negative for injury, rash, and discoloration, Neuro: Negative for headache, weakness, numbness, tingling, and seizure, Psych: Negative for depression, anxiety, suicide ideation, homicidal ideation, and hallucinations, Allergy/Immunology: Negative for hives, rash, and allergies, Endocrine: Negative for neck swelling, polydipsia, polyuria, polyphagia, and marked weight changes, Hematologic/Lymphatic: Negative for swollen nodes, abnormal bleeding, and unusual bruising. 23:24 Abdomen/GI: Positive for abdominal pain, nausea and vomiting, of the right upper quadrant, left upper quadrant, right lower quadrant and left lower quadrant. Exam: 23:24 Constitutional: This is a well developed, well nourished patient who is awake, alert, pardeep and in no acute distress. Head/Face: Normocephalic, atraumatic. Eyes: Pupils equal round and reactive to light, extra-ocular motions intact. Lids and lashes normal. Conjunctiva and sclera are non-icteric and not injected. Cornea within normal limits. Periorbital areas with no swelling, redness, or edema. ENT: Nares patent. No nasal discharge, no septal abnormalities noted. Tympanic membranes are normal and external auditory canals are clear. Oropharynx with no redness, swelling, or masses, exudates, or evidence of obstruction, uvula midline. Mucous membranes moist. Neck: Trachea midline, no thyromegaly or masses palpated, and no cervical lymphadenopathy. Supple, full range of motion without nuchal rigidity, or vertebral point tenderness. No Meningismus. Chest/axilla: Normal chest wall appearance and motion. Nontender with no deformity. No lesions are appreciated. Cardiovascular: Regular rate and rhythm with a normal S1 and S2. No gallops, murmurs, or rubs. Normal PMI, no JVD. No pulse deficits. Respiratory: Lungs have equal breath sounds bilaterally, clear to auscultation and percussion. No rales, rhonchi or wheezes noted. No increased work of breathing, no retractions or nasal flaring. Abdomen/GI: Soft, non-tender, with normal bowel sounds. No distension or tympany. No guarding or rebound. No evidence of tenderness throughout. Back: No spinal tenderness. No costovertebral tenderness. Full range of motion. Skin: Warm, dry with normal turgor. Normal color with no rashes, no lesions, and no evidence of cellulitis. MS/ Extremity: Pulses equal, no cyanosis. Neurovascular intact. Full, normal range of motion. Neuro: Awake and alert, GCS 15, oriented to person, place, time, and situation. Cranial nerves II-XII grossly intact. Motor strength 5/5 in all extremities. Sensory grossly intact. Cerebellar exam normal. Normal gait. Psych: Awake, alert, with orientation to person, place and time. Behavior, mood, and affect are within normal limits. Vital Signs: 22:30 BP 177 / 79; Pulse 101; Resp 18; Temp 98.4(O); Pulse Ox 96% on R/A; Weight 129.27 kg fc (R); Height 5 ft. 2 in. (157.48 cm) (R); Pain 0/10; 10/11 00:09 BP 154 / 64; Pulse 86; Resp 18; Pulse Ox 100% on R/A; oe 01:30 BP 156 / 74; Pulse 86; Resp 18; Pulse Ox 99% ; wh 10/10 22:30 Body Mass Index 52.13 (129.27 kg, 157.48 cm) MDM: 10/10 22:52 Patient medically screened. pardeep 23:26 Data reviewed: vital signs, nurses notes, lab test result(s), EKG, radiologic studies, [place] plain films. 10/10 22:56 Order name: Basic Metabolic Panel [place] 10/10 22:56 Order name: CBC with Diff [place] 10/10 22:56 Order name: LFT's [place] 10/10 22:56 Order name: Magnesium; Complete Time: 00:45 [place] 10/10 22:56 Order name: NT PRO-BNP; Complete Time: 00:45 [place] 10/10 22:56 Order name: PT-INR; Complete Time: 00:45 [place] 10/10 22:56 Order name: Troponin (emerg Dept Use Only); Complete Time: 00:45 [place] 10/10 22:56 Order name: Lipase; Complete Time: 00:45 [place] 10/10 22:56 Order name: Urine Culture [place] 10/10 22:57 Order name: Basic Metabolic Panel; Complete Time: 00:45 [facility] 10/10 22:57 Order name: CBC with Automated Diff; Complete Time: 00:45 [facility] 10/10 22:57 Order name: Liver (Hepatic) Function; Complete Time: 00:45 [facility] 10/10 23:39 Order name: Urine Dipstick--Ancillary (enter results); Complete Time: 00:45 ar 10/11 00:19 Order name: CBC Smear Scan; Complete Time: 00:45 [facility] 10/10 22:56 Order name: XRAY Chest (1 view) [place] 10/11 00:49 Order name: Abdomen with Erect XRAY [place] 10/11 01:03 Order name: CBC with Automated Diff [facility] 10/11 01:03 Order name: CBC with Automated Diff [facility] 10/11 01:03 Order name: Comprehensive Metabolic Panel [facility] 10/11 01:03 Order name: Comprehensive Metabolic Panel [facility] 10/11 01:03 Order name: Troponin I [facility] 10/11 01:03 Order name: Troponin I [facility] 10/11 01:03 Order name: Troponin I [facility] 10/10 22:56 Order name: EKG; Complete Time: 22:58 [place] 10/10 22:56 Order name: Cardiac monitoring; Complete Time: 23:25 [place] 10/10 22:56 Order name: EKG - Nurse/Tech; Complete Time: 23:25 [place] 10/10 22:56 Order name: IV Saline Lock; Complete Time: 23:25 [place] 10/10 22:56 Order name: Labs collected and sent; Complete Time: 23:25 [place] 10/10 22:56 Order name: O2 Per Protocol; Complete Time: 23:25 [place] 10/10 22:56 Order name: O2 Sat Monitoring; Complete Time: 23:25 [place] 10/10 22:56 Order name: Urine Dipstick-Ancillary (obtain specimen); Complete Time: 23:24 [place] 10/11 01:03 Order name: CONS Pharmacy Consult EDIN 10/11 01:03 Order name: Full Liquid EDIN Administered Medications: 23:20 Drug: NS 0.9% 1000 ml Route: IV; Rate: 1 bolus; Site: left antecubital; 10/11 01:02 Follow up: Response: No adverse reaction; IV Status: Completed infusion 10/10 23:20 Drug: Zofran 4 mg Route: IVP; Site: left antecubital; 10/11 01:02 Follow up: Response: No adverse reaction; Nausea is decreased 10/10 23:20 Drug: Pepcid 20 mg Route: IVP; Site: left antecubital; 10/11 01:01 Follow up: Response: No adverse reaction 00:02 Not Given (Patient Refused): morphine 2 mg IVP once; (PAIN>8) RASS on ADMN: Combtv4, wh Very Agttd3, Agttd2, Rstlss1, AlertClm0, Drwsy-1, LtSdtn-2, ModSdtn-3, DpSdtn-4, UnArsble-5 x2 00:13 Drug: Bentyl 20 mg Route: PO; 02:09 Follow up: Response: No adverse reaction 01:01 Drug: Magnesium Sulfate 1 grams Route: IVPB; Infused Over: 1 hrs; Site: left antecubital; 02:10 Follow up: Response: No adverse reaction; IV Status: Infusion continued upon admission 01:01 Drug: NS 0.9% 1000 ml Route: IV; Rate: 125 ml/hr; Site: left antecubital; 02:10 Follow up: Response: No adverse reaction; IV Status: Completed infusion Disposition: 10/11/19 00:52 Hospitalization ordered by Vamshi Santana for Inpatient Admission. Preliminary diagnosis are Vomiting, Abdominal tenderness, Hypomagnesemia, Type 1 diabetes mellitus, Unspecified kidney failure, Volume depletion, unspecified. - Bed requested for Telemetry/MedSurg (observation). - Status is Inpatient Admission. - Condition is Fair. - Problem is new. - Symptoms have improved. UTI on Admission? No Signatures: Dispatcher [employer] EDMS Karoline Castillo RN RN mw Anderson, Corey, MD MD cha Chretien, Felicia RN ALEXIA Eugenia Singer RN RN ea Habalo, Winsy Corrections: (The following items were deleted from the chart) 01:04 00:52 Hospitalization Ordered by Vamshi Santana MD for Inpatient Admission. Preliminary diagnosis is Vomiting; Abdominal tenderness; Hypomagnesemia; Type 1 diabetes mellitus; Unspecified kidney failure; Volume depletion, unspecified. Bed requested for Telemetry/MedSurg (observation). Status is Inpatient Admission. Condition is Fair. Problem is new. Symptoms have improved. UTI on Admission? No. [place] 02:11 01:04 10/11/2019 00:52 Hospitalization Ordered by Vamshi Santana MD for Inpatient Admission. Preliminary diagnosis is Vomiting; Abdominal tenderness; Hypomagnesemia; Type 1 diabetes mellitus; Unspecified kidney failure; Volume depletion, unspecified. Bed requested for Telemetry/MedSurg (observation). Status is Inpatient Admission. Condition is Fair. Problem is new. Symptoms have improved. UTI on Admission? No.
--- NOTE | 2019-10-11 00:53 | ER ---
Nurse's Notes [facility] Name: Evelia Reis Age: 64 yrs Sex: Female : 1955 Arrival Date: 10/10/2019 Time: 22:40 Bed 17 Private MD: Diagnosis: Vomiting;Abdominal tenderness;Hypomagnesemia;Type 1 diabetes mellitus;Unspecified kidney failure;Volume depletion, unspecified Presentation: 10/10 22:30 Method Of Arrival: EMS: [facility] 22:30 Presenting complaint: Patient states: that she ate [employer] and then shortly after fc that she started having abdominal cramping, nausea and vomiting. Denies any pain at this time. Transition of care: patient was not received from another setting of care. Onset of symptoms was October 10, 2019 at 17:20. Risk Assessment: Do you want to hurt yourself or someone else? Patient reports no desire to harm self or others. Initial Sepsis Screen: Does the patient meet any 2 criteria? HR > 90 bpm. Yes Does the patient have a suspected source of infection? No. Patient's initial sepsis screen is negative. Care prior to arrival: Glucose check: 140 bp 182/77, resp rate of 16, heart rate of 100, sats of 96%. 22:30 Acuity: SHERRI 3 fc Historical: - Allergies: 22:52 Amoxicillin; fc 22:52 NSAIDS; fc - Home Meds: 22:52 hydralazine 25 mg Oral tab 1 tab tid prn bp over 140/90 [Active]; metformin 1,000 mg fc Oral tr24 1 tab once daily [Active]; metoprolol succinate 100 mg Oral Tb24 1 tab once daily [Active]; atorvastatin 40 mg Oral tab 1 tab once daily [Active]; Plavix 75 mg Oral tab 1 tab once daily [Active]; Lasix 40 mg Oral tab 1 tab 3 times per day [Active]; omeprazole 40 mg Oral cpDR 1 cap once daily [Active]; Humalog Pen Sub-Q 14 unit before meals [Active]; Toujeo SoloStar 300 unit/mL (1.5 mL) subcutaneous inpn 60 unit daily [Active]; Victoza 2-Migel 0.6 mg/0.1 mL (18 mg/3 mL) subcutaneous pnij 0.3 mL before supper [Active]; aspirin 81 mg Oral TbEC 1 tab once daily [Active]; magnesium oxide 250 mg Oral tab daily [Active]; Vitamin B-12 1,000 mcg Oral tab daily [Active]; Vitamin D Oral 800 unit daily [Active]; - PMHx: 22:52 Diabetes - IDDM; GERD; Hypertension; CVA; Hyperlipidemia; ischemic stroke; Arthritis; fc sciatica; - PSHx: 22:52 right great toe amputation; fc - Immunization history:: Last tetanus immunization: unknown, Flu vaccine is not up to date. - Social history:: Smoking status: Patient/guardian denies using tobacco, Patient/guardian denies using alcohol, street drugs. - Ebola Screening: : Patient negative for fever greater than or equal to 101.5 degrees Fahrenheit, and additional compatible Ebola Virus Disease symptoms Patient denies exposure to infectious person Patient denies travel to an Ebola-affected area in the 21 days before illness onset. - Family history:: not pertinent. Screenin:30 Abuse screen: Denies threats or abuse. Nutritional screening: No deficits noted. fc Tuberculosis screening: No symptoms or risk factors identified. Fall Risk None identified. Assessment: 22:46 General: Appears in no apparent distress. Behavior is calm, cooperative, appropriate wh for age. Pain: Complains of pain in right upper quadrant and left upper quadrant Pain does not radiate. Quality of pain is described as crampy, Pain began 4 hours ago. Neuro: Level of Consciousness is awake, alert, obeys commands, Oriented to person, place, time, situation, Appropriate for age. Cardiovascular: Heart tones S1 S2. Respiratory: Airway is patent Respiratory effort is even, unlabored, Respiratory pattern is regular, symmetrical. GI: Abdomen is round non-distended, Abd is soft and non tender X 4 quads. Reports cramping, nausea, vomiting. : No signs and/or symptoms were reported regarding the genitourinary system. EENT: No signs and/or symptoms were reported regarding the EENT system. Derm: Skin is intact, is healthy with good turgor, Skin is pink, warm \T\ dry. normal. Musculoskeletal: Circulation, motion, and sensation intact. 23:30 Reassessment: Patient appears in no apparent distress at this time. No changes from previously documented assessment. Patient and/or family updated on plan of care and expected duration. Pain level reassessed. Patient is alert, oriented x 3, equal unlabored respirations, skin warm/dry/pink. 10/11 00:26 Reassessment: Patient appears in no apparent distress at this time. No changes from previously documented assessment. Patient and/or family updated on plan of care and expected duration. Pain level reassessed. Patient is alert, oriented x 3, equal unlabored respirations, skin warm/dry/pink. 02:09 Reassessment: Patient appears in no apparent distress at this time. No changes from previously documented assessment. Patient and/or family updated on plan of care and expected duration. Pain level reassessed. Patient is alert, oriented x 3, equal unlabored respirations, skin warm/dry/pink. Vital Signs: 10/10 22:30 BP 177 / 79; Pulse 101; Resp 18; Temp 98.4(O); Pulse Ox 96% on R/A; Weight 129.27 kg fc (R); Height 5 ft. 2 in. (157.48 cm) (R); Pain 0/10; 10/11 00:09 BP 154 / 64; Pulse 86; Resp 18; Pulse Ox 100% on R/A; oe 01:30 BP 156 / 74; Pulse 86; Resp 18; Pulse Ox 99% ; 10/10 22:30 Body Mass Index 52.13 (129.27 kg, 157.48 cm) ED Course: 10/10 22:30 Arm band placed on Patient placed in an exam room, on a stretcher. 22:30 Patient has correct armband on for positive identification. Placed in gown. Bed in low fc position. Call light in reach. Pulse ox on. NIBP on. 22:40 Patient arrived in ED. fc 22:44 Triage completed. 22:46 Yury Govea is Primary Nurse. 22:52 Otoniel Hidalgo MD is Attending Physician. pardeep 23:20 Inserted saline lock: 20 gauge in left antecubital area, using aseptic technique. Blood ea collected. 23:33 XRAY Chest (1 view) In Process Unspecified. EDMS 10/11 00:49 Vamshi Santana MD is Hospitalizing Provider. pardeep 02:04 No provider procedures requiring assistance completed. Patient admitted, IV remains in place. Administered Medications: 10/10 23:20 Drug: NS 0.9% 1000 ml Route: IV; Rate: 1 bolus; Site: left antecubital; ea 10/11 01:02 Follow up: Response: No adverse reaction; IV Status: Completed infusion 10/10 23:20 Drug: Zofran 4 mg Route: IVP; Site: left antecubital; ea 10/11 01:02 Follow up: Response: No adverse reaction; Nausea is decreased 10/10 23:20 Drug: Pepcid 20 mg Route: IVP; Site: left antecubital; ea 10/11 01:01 Follow up: Response: No adverse reaction 00:02 Not Given (Patient Refused): morphine 2 mg IVP once; (PAIN>8) RASS on ADMN: Combtv4, wh Very Agttd3, Agttd2, Rstlss1, AlertClm0, Drwsy-1, LtSdtn-2, ModSdtn-3, DpSdtn-4, UnArsble-5 x2 00:13 Drug: Bentyl 20 mg Route: PO; 02:09 Follow up: Response: No adverse reaction 01:01 Drug: Magnesium Sulfate 1 grams Route: IVPB; Infused Over: 1 hrs; Site: left antecubital; 02:10 Follow up: Response: No adverse reaction; IV Status: Infusion continued upon admission 01:01 Drug: NS 0.9% 1000 ml Route: IV; Rate: 125 ml/hr; Site: left antecubital; 02:10 Follow up: Response: No adverse reaction; IV Status: Completed infusion Outcome: 00:52 Decision to Hospitalize by Provider. pardeep 02:04 Admitted to Med/surg accompanied by [facility], via wheelchair, room 231, with chart, Report called to Donna Shen 02:04 Condition: stable 02:04 Instructed on the need for admit. 02:11 Patient left the ED. Signatures: Dispatcher [employer] Otoniel Aguilar MD MD cha Chretien, Felicia, RN RN Noé Márquez Elena RN Yury Warren ea
[2019-10-11] MEDS ORDERED: MAGNESIUM SULFATE 1 gm IVPB 1 GM/100 ML BAG IV ONE (00:54)
[2019-10-11] MEDS ORDERED: NA CHLORIDE 0.9% 1,000 ML ONE (00:54)
[2019-10-11] MEDS ORDERED: ONDANSETRON 4 MG/2 ML VIAL IV PRN (00:58)
[2019-10-11] MEDS ORDERED: MORPHINE 2 MG/ML SYR IV PRN (00:58)
[2019-10-11] MEDS ORDERED: ACETAMINOPHEN 500 MG TAB PO PRN (00:58)
[2019-10-11] MEDS: NA CHLORIDE 0.9% 1,000 ML IV SCH ×2 (01:00→11:00)
[2019-10-11 02:12] VITALS: BMI 50.7
[2019-10-11 02:19] VITALS: O2SAT 99
--- NOTE | 2019-10-11 08:13 | P.HP ---
Certification for Inpatient Patient admitted to: Observation With expected LOS: <2 Midnights Patient will require the following post-hospital care: None Practitioner: I am a practitioner with admitting privileges, knowledge of patient current condition, hospital course, and medical plan of care. Services: Services provided to patient in accordance with Admission requirements found in Title 42 Section 412.3 of the Code of Federal Regulations Patient History Date of Service: 10/11/19 Reason for admission: Abdominal pain; intractable nausea and vomiting History of Present Illness: Patient is a 64-year-old female who was and [facility] yesterday morning. Around lunchtime she ate some Ramen noodles, and after were she started having abdominal discomfort and intractable nausea and vomiting. Patient does have a lot of medical issues. She has hypertension and diabetes along with peripheral arterial disease which has required an amputation of her right 1st toe. She came into the hospital because her nausea and vomiting was persistent. In the ER she was given some anti emetics and IV hydration. She has started feeling better. At this time, she will be admitted to the hospital for further evaluation. If she does not have any further nausea and vomiting will go ahead and start her on a liquid diet this morning. We will add advance this as tolerated. It appears she may have a viral gastroenteritis. Allergies amoxicillin [Amoxicillin] Allergy (Unknown, Verified 03/26/14 21:55) Rash NSAIDS Allergy (Uncoded 10/11/19 02:13) GI bleeding Home Medications: Aspirin 81 mg PO DAILY #90 tab.chew 05/17/16 Clopidogrel Bisulfate [Plavix*] 75 mg PO DAILY #30 tablet 05/17/16 Atorvastatin Calcium [Lipitor] 40 mg PO BEDTIME 02/13/18 Insulin Glargine,Hum.rec.anlog [Kyler Velasco] 60 unit SQ DAILY WITH BREAKFAST 02/13/18 Insulin Lispro [Humalog] 14 unit SQ TIDWM 02/13/18 Liraglutide [Victoza 2-Migel] 1.8 mg SQ DAILY AT SUPPER 02/13/18 Metformin HCl [Glucophage*] 1,000 mg PO DAILY WITH BREAKFAST 02/13/18 Metoprolol Succinate [Toprol Xl*] 100 mg PO DAILY 02/13/18 Omeprazole [Prilosec] 40 mg PO DAILY 02/13/18 Cholecalciferol (Vitamin D3) [Vitamin D3] 800 unit PO DAILY 10/11/19 Cyanocobalamin [Vitamin B-12*] 1,000 mcg PO DAILY 10/11/19 Furosemide [Lasix] 40 mg PO TID 10/11/19 Hydralazine [Apresoline*] 25 mg PO TID 10/11/19 Magnesium Oxide [Magnesium] 250 mg PO DAILY 10/11/19 - Past Medical/Surgical History Has patient received pneumonia vaccine in the past: No Diabetic: Yes -: HTN -: Hyperlipidemia -: Diabetes mellitus type 2 -: Chronic back pain with sciatica -: Peripheral vascular disease -: Right 1st toe amputation -: Superficial abscess of the abdomen, I/D -: Right lower extremity angioplasty Psychosocial/ Personal History: She is , has 2 children. She does not work. - Family History Mother Medical History: Lung disease - Social History Smoking Status: Never smoker Alcohol use: No CD- Drugs: No Caffeine use: Yes Place of Residence: Home Review of Systems 10-point ROS is otherwise unremarkable Physical Examination - Vital Signs Temperature: 97.5 F Blood Pressure: 148/65 Pulse: 84 Respirations: 16 Pulse Ox (%): 96 - Physical Exam General: Alert, In no apparent distress, Oriented x3 HEENT: Atraumatic, PERRLA, Mucous membr. moist/pink, EOMI, Sclerae nonicteric Neck: Supple, 2+ carotid pulse no bruit, No LAD, Without JVD or thyroid abnormality Respiratory: Clear to auscultation bilaterally, Normal air movement Cardiovascular: Regular rate/rhythm, Normal S1 S2, No murmurs Gastrointestinal: Normal bowel sounds, Soft and benign, Non-distended, No tenderness Musculoskeletal: No clubbing, No swelling, No tenderness Integumentary: No rashes Neurological: Normal gait, Normal speech, Normal strength at 5/5 x4 extr, Normal tone, Sensation intact, Cranial nerves 3-12 intact, Normal affect Lymphatics: No axilla or inguinal lymphadenopathy - Studies Laboratory Data (last 24 hrs) 10/10/19 23:30: PT 12.3, INR 1.04 10/10/19 23:30: WBC 12.6 H, Hgb 10.9 L, Hct 32.8 L, Plt Count 386 10/10/19 23:30: Sodium 140, Potassium 3.9, BUN 21 H, Creatinine 1.34 H, Glucose 123 H, Magnesium 1.7 L, Total Bilirubin 0.3, AST 19, ALT 18, Alkaline Phosphatase 135 H, Lipase 75 Assessment & Plan - Problems (Diagnosis) (1) Intractable nausea and vomiting Current Visit: Yes Status: Acute (2) Continuous severe abdominal pain Current Visit: Yes Status: Acute (3) Atherosclerosis of arteries of extremities Current Visit: No Status: Acute (4) CVA (cerebral vascular accident) Current Visit: No Status: Acute Qualifiers: (5) Diabetes Onset Date: 02/14/18 Current Visit: No Status: Chronic (6) Hyperlipidemia Onset Date: 02/14/18 Current Visit: No Status: Chronic Qualifiers: (7) Hypertension Onset Date: 02/14/18 Current Visit: No Status: Chronic Qualifiers: - Plan Plan: 1. Will continue with IV hydration. Patient is clinically looking a little bit better. Will start her on a full liquid diet this morning. If she tolerates the diet will advanced to a regular diet. She is a diabetic and has peripheral vascular disease so she will need a heart healthy and 1800 kilocalorie ADA diet. This looks like she may have a viral gastroenteritis as she is improving rapidly. If she continues to improve and she tolerates her diet through the afternoon then we should be able to discharge her by supper time. 2. Continue with strict blood pressure and blood sugar control. Continue with cardiac medications and anti-platelet therapy 3. Repeat labs and make sure they are stable prior to discharging this afternoon. Discharge Plan: Home Plan to discharge in: 24 Hours - Advance Directives Does patient have a Living Will: No Does patient have a Durable POA for Healthcare: No - Code Status/Comfort Care Code Status Assessed: Yes Code Status: Full Code Critical Care: No Time Spent Managing PTS Care (In Minutes): 45
[2019-10-11] MEDS: INSULIN LISPRO 100 UNIT/1 ML SQ SCH ×2 (08:45→12:03)
[2019-10-11] MEDS ORDERED: CLOPIDOGREL 75 MG TABLET PO SCH (09:00)
[2019-10-11] MEDS ORDERED: CYANOCOBALAMIN 1000 MCG PO SCH (09:00)
[2019-10-11] MEDS ORDERED: HOME MED 1 EA UNK (Magnesium Oxide [Magnesium] 250 MG) PO SCH (09:00)
[2019-10-11] MEDS ORDERED: HOME MED 1 EA UNK (Omeprazole [Prilosec] 40 MG) PO SCH (09:00)
[2019-10-11] MEDS ORDERED: METOPROLOL XL 100 MG TAB PO SCH (09:00)
[2019-10-11] MEDS ORDERED: ASPIRIN 81 MG CHEWABLE TABLET PO SCH (09:00)
[2019-10-11] MEDS ORDERED: Magnesium Sulfate 2gm IVPB 2 G/50 ML BAG IV ONE (09:00)
[2019-10-11] MEDS ORDERED: CHOLECALCIFEROL 800 UNIT PO SCH (09:00)
--- NOTE | 2019-10-11 09:38 | RAD REPORT ---
EXAM DESCRIPTION: RAD - Chest Single View - 10/10/2019 11:34 pm CLINICAL HISTORY: COUGH Chest pain. COMPARISON: Chest Single View dated 08/02/2019; Chest Single View dated 05/16/2016; CHEST SINGLE VIEW dated 03/26/2014 FINDINGS: Portable technique limits examination quality. Mild interstitial pulmonary edema. The heart is moderately enlarged in size. No displaced fractures. IMPRESSION: Mild CHF.
--- NOTE | 2019-10-11 09:43 | RAD REPORT ---
EXAM DESCRIPTION: RAD - Abdomen W Erect - 10/11/2019 2:24 am CLINICAL HISTORY: ABD PAIN Pain COMPARISON: No comparisons FINDINGS: The bowel gas pattern is non-obstructive. No evidence of free air or pneumatosis. No suspi cious calcifications. Prominent lumbosacral degenerative changes. IMPRESSION: Negative examination.
[2019-10-11 10:21] LABS: Absolute Lymphocytes (CBC) 1.6 K/uL (0.7-4.9); Basophils % 0.4 % (0-1.3); Hematocrit 28.2 % (36.0-45.0); Lymphocytes % 16.8 % (15.3-44.8); MPV 7.5 fL (7.6-11.3); RBC Red Blood Cell Count 3.22 M/uL (3.86-4.86)
[2019-10-11 10:33] LABS: Magnesium 2.9 mg/dL (1.8-2.4); Potassium 3.1 mmol/L (3.5-5.1)
[2019-10-11] MEDS ORDERED: INFLUENZA VACCINE (for 3y+) 0.5 ML DOSE IMVAC ONE (11:00)
[2019-10-11] MEDS ORDERED: INSULIN GLARGINE HUM REC ANLOG 60 UNIT SQ SCH (11:30)
[2019-10-11] MEDS ORDERED: INSULIN LISPRO 14 UNIT SQ SCH (12:00)
[2019-10-11 12:06] VITALS: BP 159/65
[2019-10-11] MEDS ORDERED: FUROSEMIDE 40 MG TABLET PO SCH (13:00)
[2019-10-11] MEDS ORDERED: HYDRALAZINE HCL 25 MG TABLET PO SCH (14:00)
[2019-10-11 14:09] VITALS: TEMP 98.3
--- NOTE | 2019-10-11 14:20 | EKG ---
Test Date: 2019-10-10 Test Time: 23:14:23 Welder Operator: VERONICA MEASUREMENT RESULTS: Intervals: Rate: 93 MT: 118 QRSD: 90 QT: 386 QTc: 479 [place]: P: 58 MT: 118 QRS: 37 T: 4 INTERPRETIVE STATEMENTS: Normal sinus rhythm Nonspecific ST abnormality Abnormal ECG Compared to ECG 08/02/2019 10:01:42 ST (T wave) deviation now present Incomplete right bundle-branch block no longer present Left ventricular hypertrophy no longer present Electronically Signed On 10-11-19 14:19:17 POLITICAL DIRECTOR by Yazan Quintero
[2019-10-11] MEDS ORDERED: HOME MED 1 EA UNK (Liraglutide [Victoza 2-Pak] 1.8 MG) SQ SCH (17:00)
[2019-10-11] MEDS ORDERED: ATORVASTATIN 40 MG TAB PO SCH (21:00)
[2019-10-12] MEDS ORDERED: METFORMIN HCL 1000 MG PO SCH (08:00)
[2019-10-12] MEDS ORDERED: INSULIN GLARGINE 100 UNITS/ML SQ SCH (08:00)
[2019-10-12] MEDS ORDERED: PANTOPRAZOLE 40MG TABLET PO SCH (09:00)
== END 2019-10-11 13:55 | disposition home or self-care (01) ==
LOC: ER 22:33 → 2ND 10-11 01:43
PROVIDERS: ADMIT Hospitalist; ATTEND Hospitalist
DX: R11.2 Nausea with vomiting, unspecified (principal); R10.9 Unspecified abdominal pain; I10 Essential (primary) hypertension; E11.9 Type 2 diabetes mellitus without complications; I73.9 Peripheral vascular disease, unspecified; Z89.411 Acquired absence of right great toe; Z88.0 Allergy status to penicillin; Z79.82 Long term (current) use of aspirin; E78.5 Hyperlipidemia, unspecified; Z86.73 Personal history of transient ischemic attack (TIA), and cerebral infarction without residual deficits
CPT/HCPCS: 96365; 96361; 93005; 87088; 85025 ×2; 87086; 80048 ×2; 36415; 83735 ×2; 85610; 82947 ×2; 80076; 81003; 84484 ×3; 83690; 83880; 74019; 71045; 96375; 99285; J3475 ×2; J7030 ×2; J2405; G0378 ×2; J1815

== ENCOUNTER 2019-12-28 10:07 | Emergency (ER) | payer OTHER ==
--- OUTSIDE RECORDS SUMMARY | 2019-12-28 10:09 | XMS REPORT ---
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.4 Active Problem skilled nursing current use of insulin Z79.4 Active Assessment Degenerative disc disease, lumbar M51.36 Active Problem Degenerative disc disease, lumbar M51.36 Active Problem Hypomagnesemia E83.42 Active Problem Peripheral vascular disease I73.9 Active Problem Morbid obesity E66.01 Active Problem Seasonal allergic rhinitis, J30.2 Active unspecified trigger Problem Chronic hyperkalemia E87.5 Active Problem Edema R60.9 Active Problem Cough R05 Active Problem Hospital discharge follow-up Z09 Active Problem Bilateral lower extremity edema R60.0 Active Problem Acute pharyngitis, unspecified J02.9 Active etiology Problem Neuropathy of right foot G57.91 Active Problem Sciatica M54.30 Active Problem Chronic a-fib I48.2 Active Assessment Elevated alkaline phosphatase level R74.8 Active Problem Diabetic polyneuropathy associated E11.42 Active with type 2 diabetes mellitus Problem PVD (peripheral vascular disease) I73.9 Active Assessment Dyspnea on exertion R06.09 Active Problem Acute otitis externa of right ear, H60.501 Active unspecified type Assessment Weakness of both lower extremities R29.898 Active Problem Muscle spasm of both lower legs M62.838 Active Assessment CKD (chronic kidney disease) stage N18.3 Active 3, GFR 30-59 ml/min Problem Primary osteoarthritis of right M17.11 Active knee Assessment Primary osteoarthritis of right M17.11 Active knee Problem History of ischemic stroke without Z86.73 Active residual deficits Assessment Essential hypertension I10 Active Problem Chronic kidney disease, stage 3 N18.3 Active Assessment Type 2 diabetes mellitus without E11.9 Active complications Problem Other iron deficiency anemia D50.8 Active Assessment PVD (peripheral vascular disease) I73.9 Active Problem CKD (chronic kidney disease) stage N18.3 Active 3, GFR 30-59 ml/min Assessment Mixed hyperlipidemia E78.2 Active Problem History of intravascular stent Z95.828 Active placement Assessment Other iron deficiency anemia D50.8 Active Problem Menopause present Z78.0 Active Assessment Diabetic polyneuropathy associated E11.42 Active with type 2 diabetes mellitus Problem H/O section Z98.891 Active Problem Essential hypertension I10 Active Problem Morbid obesity due to excess E66.01 Active calories Medications Medication Code Code Instructions Start End Status Dosage System Date Date Narcisa Microlet [facility] 25969877013 - use lancets Active as Lancets three times a directed day Atorvastatin [facility] 03798431788 40 MG Active TAKE 1 Calcium TABLET BY MOUTH AT BEDTIME. Metoprolol [facility] 16651376550 100 MG Active take by Succinate ER mouth 1 tablet daily Lisinopril [facility] 09212306436 20 MG Inactive take 2 tablet by mouth every day BD Insulin Syringe [facility] 90138875863 31G X 516 Active not Ultrafine defined Narcisa Lancets [facility] 76998260161 1 In Vetro Jul Active check three times a , 03, blood day 2018 2019 sugar Contour Next Test [facility] 33417780804 - three times Active as a day directed Flonase [facility] 36036027050 50 MCG/ACT Nov 27, Active 2 spray in Nasally Once a 2019 each day nostril HydrALAZINE HCl [facility] 08936377465 25 MG Orally Active 1 tablet Three times a with food day Guaifenesin ND 12181709981 200 MG Orally Active 1 tablet every 4 hrs as needed Vitamin B-12 ER ND 75707434692 1000 MCG Active 1 tablet Orally Once a day BD Insulin Syringe [facility] 80306780212 31G X 5/16 Active not Ultrafine defined Glucometer Kit [facility] 0 Fingerstick Jan 03, April 02, Active Check BS TID 2017 2025 three times a day Clopidogrel ND 63225514727 75 MG Active TAKE 1 Bisulfate TABLET BY MOUTH EVERY DAY Narcisa Microlet [facility] 15365175786 - use lancets Active as Lancets three times a directed day Cetirizine HCl [facility] 26379210232 10 MG Orally Nov 27May Active 1 tablet Once a day 2019 Amiloride HCl ND 95549457964 5 MG Orally Active 1 tablet Once a day Kyler Felipe [facility] 50687274813 300 UNIT/ML Active not Subcutaneous defined Cyclobenzaprine [facility] 37100129583 10 MG Oral Active TAKE 1 HCl TABLET BY MOUTH EVERY DAY NEEDED Magnesium ND 46721104014 500 MG Orally Active 1 tablet Once a day with a meal Omeprazole [facility] 98498937685 40 MG Orally Active TAKE BY Once a day MOUTH 1 CAPSULE ADA Spironolactone [facility] 03510005805 25 MG Orally Active 1 tablet Once a day with food HydrALAZINE HCl [facility] 81531313179 25 MG Orally Active 1 tablet Three times a with food day Victoza [facility] 92823527517 18 MG/3ML Active not Subcutaneous defined Fenofibrate ND 01767262706 48 MG Orally Inactive 1 tablet Once a day with food Neomycin-Polymyxin [facility] 36733026456 3.5-22000-2 Active 4 drops -HC Otic Three into times a day affected ear Metformin HCl ND 79497957104 1000 MG Orally Active 1 tablet once a day with meals Clopidogrel [facility] 42794181297 75 MG Active TAKE 1 Bisulfate TABLET BY MOUTH EVERY DAY Lasix [facility] 26927987073 40 MG Orally Active 1 tablet twice a day Aspir-81 [facility] 57631975629 81 MG Orally Active 1 tablet Once a day Humalog KwikPen [facility] 57582951419 100 UNIT/ML Active not Subcutaneous defined Atorvastatin [facility] 04295288850 40 MG Orally Active 1 tablet Calcium Once a day Accu-Chek SoftClix [facility] 56466324913 1 InVitro Active As Lancet Directed Narcisa Contour Next ND 03813816051 - Active USE 3 Test TIMES A DAY E11.9 Lancets [facility] 00016330363 - Active not defined Glucometer Kit ND 0 Fingerstick Jan 03April 02, Active Check BS BID 2017 2025 twice a day Results No Known Results Summary Purpose eClinicalWorks Submission
--- OUTSIDE RECORDS SUMMARY | 2019-12-28 10:09 | XMS REPORT ---
[...] Active Problem Mixed hyperlipidemia E78.2 Active Problem ferry terminal supervisor current use of insulin Z79.4 Active [...]
--- OUTSIDE RECORDS SUMMARY | 2019-12-28 10:09 | XMS REPORT ---
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 Problem [...] M54.30 Active Problem Chronic a-fib I48.2 Active Problem Diabetic polyneuropathy associated E11.42 Active with type 2 diabetes mellitus Problem PVD (peripheral vascular disease) I73.9 Active Problem Acute otitis externa of right ear, H60.501 Active unspecified type Problem Muscle spasm of both lower legs M62.838 Active Problem Primary osteoarthritis of right M17.11 Active knee Problem History of ischemic stroke without Z86.73 Active residual deficits Problem Chronic kidney disease, stage 3 N18.3 Active Problem Other iron deficiency anemia D50.8 Active Problem CKD (chronic kidney disease) stage N18.3 Active 3, GFR 30-59 ml/min Problem History of intravascular stent Z95.828 Active placement Problem Menopause present Z78.0 Active Problem H/O section Z98.891 Active Problem Essential hypertension I10 Active Problem Morbid obesity due to excess E66.01 Active calories Medications No Known Medications Results No Known Results Summary Purpose eClinicalWorks Submission
--- NOTE | 2019-12-28 10:55 | RAD REPORT ---
EXAM DESCRIPTION: CT - CTHCSPWOC - 12/28/2019 10:44 am CLINICAL HISTORY: Trauma, head and neck injury. Tremors COMPARISON: No comparisons TECHNIQUE: Axial 5 mm thick images of the head were obtained. Axial 2 mm thick images of the cervical spine were obtained with sagittal and coronal reconstruction images generated and reviewed. All CT scans are performed using dose optimization technique as appropriate and may include automated exposure control or mA/KV adjustment according to patient size. FINDINGS: CT HEAD WITHOUT CONTRAST: No acute hemorrhage, hydrocephalus or extra-axial collection is identified.Advanced hypodensity is se en in the periventricular and deep white matter.No areas of brain edema or midline shift. The paranasal sinuses and mastoids are clear.The calvarium is intact. CT CERVICAL SPINE WITHOUT CONTRAST: No fracture or subluxation.Mild lower cervical degenerative changes are present with disc thinning an d small posterior osteophytes.No prevertebral soft tissues swelling is identified. IMPRESSION: No acute intracranial or cervical spine findings.
[2019-12-28 11:07] LABS: Absolute Lymphocytes (CBC) 1.6 K/uL (0.7-4.9); Basophils % 0.7 % (0-1.3); Hematocrit 34.8 % (36.0-45.0); Lymphocytes % 18.9 % (15.3-44.8); MPV 7.3 fL (7.6-11.3); RBC Red Blood Cell Count 3.99 M/uL (3.86-4.86)
[2019-12-28 11:30] LABS: Albumin 3.3 g/dL (3.4-5.0); Bilirubin Total 0.2 mg/dL (0.2-1.0); Potassium 4.1 mmol/L (3.5-5.1); Thyroid Stimulating Hormone 2.33 uIU/mL (0.360-3.740)
--- NOTE | 2019-12-28 11:48 | ER ---
Nurse's Notes [facility] Name: Evelia Reis Age: 64 yrs Sex: Female : 1955 Arrival Date: 12/28/2019 Time: 10: Bed 4 Private MD: Diagnosis: Tremor, unspecified Presentation: 12/28 10:24 Presenting complaint: Bilateral hand tremors, worse on right, while brushing teeth at hb 0730 this morning. 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 Transition of care: patient was not received from another setting of care. Onset of symptoms was December 28, 2019. Risk Assessment: Do you want to hurt yourself or someone else? Patient reports no desire to harm self or others. Initial Sepsis Screen: Does the patient meet any 2 criteria? No. Patient's initial sepsis screen is negative. Does the patient have a suspected source of infection? No. Patient's initial sepsis screen is negative. Care prior to arrival: None. 10:24 Method Of Arrival: Ambulatory hb 10:24 Acuity: SHERRI 3 hb Triage Assessment: 10:28 General: Appears in no apparent distress. Behavior is calm, cooperative. Pain: Denies hb pain. EENT: No signs and/or symptoms were reported regarding the EENT system. Neuro: Level of Consciousness is awake, alert, obeys commands, Oriented to person, place, time, situation. Cardiovascular: Heart tones S1 S2 present Capillary refill < 3 seconds Patient's skin is warm and dry. Respiratory: Airway is patent Respiratory effort is even, unlabored, Respiratory pattern is regular, symmetrical, Breath sounds are clear bilaterally. GI: No signs and/or symptoms were reported involving the gastrointestinal system. : No signs and/or symptoms were reported regarding the genitourinary system. Derm: Skin is intact, is healthy with good turgor, Skin is pink, warm \T\ dry. Musculoskeletal: Reports generalized weakness x 2 weeks. Historical: - Allergies: 10:28 NSAIDS; hb 10:28 Amoxicillin; hb - Home Meds: 10:28 aspirin 81 mg Oral TbEC 1 tab once daily [Active]; atorvastatin 40 mg Oral tab 1 tab hb once daily [Active]; Humalog Pen Sub-Q 14 unit before meals [Active]; hydralazine 25 mg Oral tab 1 tab tid prn bp over 140/90 [Active]; Lasix 40 mg Oral tab 1 tab 3 times per day [Active]; magnesium oxide 250 mg Oral tab daily [Active]; metformin 1,000 mg Oral tr24 1 tab once daily [Active]; metoprolol succinate 100 mg Oral Tb24 1 tab once daily [Active]; omeprazole 40 mg Oral cpDR 1 cap once daily [Active]; Plavix 75 mg Oral tab 1 tab once daily [Active]; Toujeo SoloStar 300 unit/mL (1.5 mL) subcutaneous inpn 60 unit daily [Active]; Victoza 2-Migel 0.6 mg/0.1 mL (18 mg/3 mL) subcutaneous pnij 0.3 mL before supper [Active]; Vitamin B-12 1,000 mcg Oral tab daily [Active]; Vitamin D Oral 800 unit daily [Active]; clopidogrel 75 mg oral tab 1 tab once daily [Active]; - PMHx: 10:28 Arthritis; CVA; GERD; Diabetes - IDDM; Hyperlipidemia; Hypertension; ischemic stroke; hb sciatica; - PSHx: 10:28 right great toe amputation; hb - Immunization history:: Adult Immunizations up to date. - Coronavirus screen:: The patient has NOT traveled to [place], [place], or [place] in the past 14 days. The patient has NOT had contact with known/suspected case of Coronavirus? Proceed with normal triage procedures. - Social history:: Smoking status: Patient denies any tobacco usage or history of. - Ebola Screening: : No symptoms or risks identified at this time. Screenin:29 Abuse screen: Denies threats or abuse. Denies injuries from another. Nutritional hb screening: No deficits noted. Tuberculosis screening: No symptoms or risk factors identified. Fall Risk None identified. Assessment: 10:29 General: see triage. hb 11:13 Reassessment: Patient appears in no apparent distress at this time. Patient and/or hb family updated on plan of care and expected duration. Pain level reassessed. Patient is alert, oriented x 3, equal unlabored respirations, skin warm/dry/pink. 12:00 Reassessment: Patient appears in no apparent distress at this time. Patient and/or hb family updated on plan of care and expected duration. Pain level reassessed. Patient is alert, oriented x 3, equal unlabored respirations, skin warm/dry/pink. Vital Signs: 10:24 BP 179 / 97; Pulse 88; Resp 16; Temp 97.8; Pulse Ox 100% on R/A; Weight 122.47 kg; hb Height 5 ft. 2 in. (157.48 cm); Pain 0/10; 11:14 BP 149 / 73; Pulse 71; Resp 16; Pulse Ox 100% on R/A; Pain 0/10; hb 12:00 BP 132 / 72; Pulse 70; Resp 15; Pulse Ox 99% on R/A; Pain 0/10; hb 10:24 Body Mass Index 49.38 (122.47 kg, 157.48 cm) hb ED Course: 10:09 Patient arrived in ED. as 10:18 Rishabh Gonzales NP is PHCP. pm1 10:18 Pancho Martinez MD is Attending Physician. pm1 10:24 Marietta Bejarano, ALEXIA is Primary Nurse. hb 10:25 Triage completed. hb 10:29 Arm band placed on. hb 10:29 Patient has correct armband on for positive identification. Bed in low position. Call hb light in reach. Side rails up X 1. 10:42 CT completed. Patient tolerated procedure well. Patient moved back from CT. bq 10:45 CT Head C Spine In Process Unspecified. EDMS 10:52 Inserted saline lock: 20 gauge in left antecubital area, using aseptic technique. Blood hb collected. 11:47 David Jorgensen MD is Referral Physician. pm1 12:11 No provider procedures requiring assistance completed. IV discontinued, intact, hb bleeding controlled, No redness/swelling at site. Pressure dressing applied. Administered Medications: No medications were administered Outcome: 11:47 Discharge ordered by . pm1 12:11 Discharged to home ambulatory, with friend. hb 12:11 Condition: stable 12:11 Discharge instructions given to patient, Instructed on discharge instructions, follow up and referral plans. Demonstrated understanding of instructions, follow-up care. 12:12 Patient left the ED. hb Signatures: Dispatcher [employer] EDMS Christianne Murray Amelia as Rishabh Gonzales NP SEAT COVER MAKER pm1 Marietta Bejarano, RN RN hb
--- NOTE | 2019-12-28 11:48 | EDPHYS ---
Physician Documentation [facility] Name: Evelia Reis Age: 64 yrs Sex: Female : 1955 Arrival Date: 12/28/2019 Time: 10:09 Bed 4 Private MD: ED Physician Pancho Martinez HPI: 12/28 10:32 This 64 yrs old Female presents to ER via Ambulatory with complaints of Arm pm1 Problem - tremors. 10:32 The patient's problem is reported as tremors to right and left hand. Greater in the pm1 right hand than the left. Onset: The symptoms/episode began/occurred this morning, at 07:30. Duration: This was a single incident, lasting no longer that 5-10 minutes. Context: occurred at home, occurred while the patient was brushing her teeth and putting her clothes on. The symptoms are alleviated by not moving arms. The symptoms are aggravated by movement of her arms while brushing teeth and putting clothes on. Associated signs and symptoms: Pertinent negatives: chest pain, dizziness, headache, numbness, tingling, weakness. Severity of symptoms: in the emergency department the symptoms have resolved Pain is currently a 0 / 10. Patient's baseline: Neuro: alert and fully oriented, Motor: no deficits, Ambulation: walks without assistance, Speech: normal, The patient has a previous history of CVA, 4 years ago. The patient has not experienced similar symptoms in the past. Historical: - Allergies: 10:28 NSAIDS; hb 10:28 Amoxicillin; hb - Home Meds: 10:28 aspirin 81 mg Oral TbEC 1 tab once daily [Active]; atorvastatin 40 mg Oral tab 1 tab hb once daily [Active]; Humalog Pen Sub-Q 14 unit before meals [Active]; hydralazine 25 mg Oral tab 1 tab tid prn bp over 140/90 [Active]; Lasix 40 mg Oral tab 1 tab 3 times per day [Active]; magnesium oxide 250 mg Oral tab daily [Active]; metformin 1,000 mg Oral tr24 1 tab once daily [Active]; metoprolol succinate 100 mg Oral Tb24 1 tab once daily [Active]; omeprazole 40 mg Oral cpDR 1 cap once daily [Active]; Plavix 75 mg Oral tab 1 tab once daily [Active]; Toujeo SoloStar 300 unit/mL (1.5 mL) subcutaneous inpn 60 unit daily [Active]; Victoza 2-Migel 0.6 mg/0.1 mL (18 mg/3 mL) subcutaneous pnij 0.3 mL before supper [Active]; Vitamin B-12 1,000 mcg Oral tab daily [Active]; Vitamin D Oral 800 unit daily [Active]; clopidogrel 75 mg oral tab 1 tab once daily [Active]; - PMHx: 10:28 Arthritis; CVA; GERD; Diabetes - IDDM; Hyperlipidemia; Hypertension; ischemic stroke; hb sciatica; - PSHx: 10:28 right great toe amputation; hb - Immunization history:: Adult Immunizations up to date. - Coronavirus screen:: The patient has NOT traveled to [place], [place], or [place] in the past 14 days. The patient has NOT had contact with known/suspected case of Coronavirus? Proceed with normal triage procedures. - Social history:: Smoking status: Patient denies any tobacco usage or history of. - Ebola Screening: : No symptoms or risks identified at this time. ROS: 10:32 Constitutional: Negative for fever, chills, and weight loss, Eyes: Negative for injury, pm1 pain, redness, and discharge, ENT: Negative for injury, pain, and discharge, Neck: Negative for injury, pain, and swelling, Cardiovascular: Negative for chest pain, palpitations, and edema, Respiratory: Negative for shortness of breath, cough, wheezing, and pleuritic chest pain, Abdomen/GI: Negative for abdominal pain, nausea, vomiting, diarrhea, and constipation, Back: Negative for injury and pain, : Negative for injury, bleeding, discharge, and swelling, MS/Extremity: Negative for injury and deformity, Skin: Negative for injury, rash, and discoloration. 10:32 Neuro: Positive for tremor, of the left hand and right hand. Exam: 10:32 Constitutional: This is a well developed, well nourished patient who is awake, alert, pm1 and in no acute distress. Head/Face: Normocephalic, atraumatic. Eyes: Pupils equal round and reactive to light, extra-ocular motions intact. Lids and lashes normal. Conjunctiva and sclera are non-icteric and not injected. Cornea within normal limits. Periorbital areas with no swelling, redness, or edema. ENT: Nares patent. No nasal discharge, no septal abnormalities noted. Tympanic membranes are normal and external auditory canals are clear. Oropharynx with no redness, swelling, or masses, exudates, or evidence of obstruction, uvula midline. Mucous membranes moist. Neck: Trachea midline, no thyromegaly or masses palpated, and no cervical lymphadenopathy. Supple, full range of motion without nuchal rigidity, or vertebral point tenderness. No Meningismus. Chest/axilla: Normal chest wall appearance and motion. Nontender with no deformity. No lesions are appreciated. Cardiovascular: Regular rate and rhythm with a normal S1 and S2. No gallops, murmurs, or rubs. Normal PMI, no JVD. No pulse deficits. Respiratory: Lungs have equal breath sounds bilaterally, clear to auscultation and percussion. No rales, rhonchi or wheezes noted. No increased work of breathing, no retractions or nasal flaring. 10:32 Back: No spinal tenderness. No costovertebral tenderness. Full range of motion. Skin: Warm, dry with normal turgor. Normal color with no rashes, no lesions, and no evidence of cellulitis. MS/ Extremity: Pulses equal, no cyanosis. Neurovascular intact. Full, normal range of motion. 10:32 Abdomen/GI: Inspection: obese Palpation: abdomen is soft and non-tender, in all quadrants. 10:32 Neuro: Orientation: is normal, Mentation: is normal, Cranial nerves: CN II- XII are normal as tested, Cerebellar function: normal finger to nose testing, Motor: moves all fours, strength is normal, strength is 5/5 in all extremities, Sensation: is normal, no obvious gross deficits, Abnormal movements: intention tremor, is not present, resting tremor, is not present, pill rolling tremor, not present. 11:01 Radiologist reports: No acute intracranial or cervical spine findings pm1 Vital Signs: 10:24 BP 179 / 97; Pulse 88; Resp 16; Temp 97.8; Pulse Ox 100% on R/A; Weight 122.47 kg; hb Height 5 ft. 2 in. (157.48 cm); Pain 0/10; 11:14 BP 149 / 73; Pulse 71; Resp 16; Pulse Ox 100% on R/A; Pain 0/10; hb 12:00 BP 132 / 72; Pulse 70; Resp 15; Pulse Ox 99% on R/A; Pain 0/10; hb 10:24 Body Mass Index 49.38 (122.47 kg, 157.48 cm) hb MDM: 10:18 Patient medically screened. pm1 11:37 Data reviewed: vital signs. Data interpreted: Pulse oximetry: on room air is 100 %. pm1 Interpretation: normal. 11:37 Differential diagnosis: CVA, TIA, Parkinson disease, hypoglycemia, cervical pm1 radiculopathy, intention tremor. 11:46 Counseling: I had a detailed discussion with the patient and/or guardian regarding: the pm1 historical points, exam findings, and any diagnostic results supporting the discharge/admit diagnosis, lab results, radiology results, the need for outpatient follow up, for definitive care, a neurologist, Sap Bobj Developer/PCP, to return to the emergency department if symptoms worsen or persist or if there are any questions or concerns that arise at home. 12/28 10:31 Order name: CBC with Diff; Complete Time: 11:15 pm1 12/28 10:31 Order name: CMP; Complete Time: 11:31 pm1 12/28 10:31 Order name: CT Head C Spine; Complete Time: 11:01 pm1 12/28 10:31 Order name: IV Saline Lock; Complete Time: 11:12 pm1 12/28 10:31 Order name: TSH; Complete Time: 11:31 pm1 Administered Medications: No medications were administered Disposition: 12:13 Co-signature as Attending Physician, Pancho Martinez MD. rn Disposition: 12/28/19 11:47 Discharged to Home. Impression: Tremor, unspecified. - Condition is Stable. - Discharge Instructions: Tremor. - Medication Reconciliation Form, Thank You Letter, Antibiotic Education, Prescription Opioid Use form. - Follow up: Emergency Department; When: As needed; Reason: Worsening of condition. Follow up: [facility]; When: 2 - 3 days; Reason: Recheck today's complaints, Continuance of care, Re-evaluation by your physician. - Problem is new. - Symptoms are resolved. Signatures: Dispatcher [employer] EDMS Pancho Martinez MD MD rn Marinas, Patrick, KATIE [employer] OPERATIONS INTELLIGENCE OFFICER pm1 Marietta Bejarano, RN RN hb Corrections: (The following items were deleted from the chart) 12:12 11:47 12/28/2019 11:47 Discharged to Home. Impression: Tremor, unspecified. Condition hb is Stable. Discharge Instructions: Tremor. Forms are Medication Reconciliation Form, Thank You Letter, Antibiotic Education, Prescription Opioid Use. Follow up: Emergency Department; When: As needed; Reason: Worsening of condition. Follow up: [facility]; When: 2 - 3 days; Reason: Recheck today's complaints, Continuance of care, Re-evaluation by your physician. Problem is new. Symptoms are resolved. pm1 12:34 10:32 The patient's problem is reported as tremors, pm1 pm1
[2019-12-28 12:20] VITALS: TEMP 97.8
[2019-12-28 12:23] VITALS: BP 132/72; O2SAT 99
== END 2019-12-28 12:12 | disposition home or self-care (01) ==
LOC: ER 10:07
DX: R25.1 Tremor, unspecified (principal); Z88.1 Allergy status to other antibiotic agents; I10 Essential (primary) hypertension; E11.9 Type 2 diabetes mellitus without complications; Z86.73 Personal history of transient ischemic attack (TIA), and cerebral infarction without residual deficits
CPT/HCPCS: 36415; 70450; 72125; 80053; 84443; 85025; 99284

== ENCOUNTER 2020-02-03 20:26 | Emergency (ER) | payer OTHER ==
--- OUTSIDE RECORDS SUMMARY | 2020-02-03 20:28 | XMS REPORT ---
[...] Active Problem Mixed hyperlipidemia E78.2 Active Problem watermelon harvesting supervisor current use of insulin Z79.4 Active [...]
--- OUTSIDE RECORDS SUMMARY | 2020-02-03 20:29 | XMS REPORT ---
:1955 Author Organization e[employer] Care Team Providers Name Role Phone Dale, Na Provider Role Unavailable Allergies No Known Allergies Problems Problem Type Condition Code Onset Dates Condition Status Problem Anemia in chronic illness D63.8 Active Problem STD (sexually transmitted disease) A64 Active Problem USP current use of insulin Z79.4 Active Problem Mixed hyperlipidemia E78.2 Active Problem Degenerative disc disease, lumbar M51.36 Active Problem Hypomagnesemia E83.42 Active Problem Peripheral vascular disease I73.9 Active Problem Morbid obesity E66.01 Active Problem Edema R60.9 Active Problem PVD (peripheral vascular disease) I73.9 Active Problem Cough R05 Active Problem Bilateral lower extremity edema R60.0 Active Problem Chronic a-fib I48.2 Active Problem Hospital discharge follow-up Z09 Active Problem Acute otitis externa of right ear, H60.501 Active unspecified type Problem Muscle spasm of both lower legs M62.838 Active Problem Recurrent falls while walking R29.6 Active Problem Diabetic polyneuropathy associated E11.42 Active with type 2 diabetes mellitus Problem History of intravascular stent Z95.828 Active placement Problem CKD (chronic kidney disease) stage N18.3 Active 3, GFR 30-59 ml/min Problem Spondylosis of cervical region M47.812 Active without myelopathy or radiculopathy Problem Sciatica M54.30 Active Problem Primary osteoarthritis of right M17.11 Active knee Problem History of ischemic stroke without Z86.73 Active residual deficits Problem Acute pharyngitis, unspecified J02.9 Active etiology Problem Neuropathy of right foot G57.91 Active Problem Essential hypertension I10 Active Problem Type 2 diabetes mellitus without E11.9 Active complications Problem Morbid obesity due to excess E66.01 Active calories Problem Chronic kidney disease, stage 3 N18.3 Active Problem Other iron deficiency anemia D50.8 Active Problem Seasonal allergic rhinitis, J30.2 Active unspecified trigger Problem Chronic hyperkalemia E87.5 Active Problem Menopause present Z78.0 Active Problem H/O section Z98.891 Active Medications No Known Medications Results No Known Results Summary Purpose eClinicalWorks Submission
--- OUTSIDE RECORDS SUMMARY | 2020-02-03 20:29 | XMS REPORT ---
[...] Active Problem Mixed hyperlipidemia E78.2 Active Problem drawing hand current use of insulin Z79.4 Active Problem [...] Start End Status Dosage System Date Date HydrALAZINE HCl [facility] 03623566208 25 MG Orally Active 1 tablet Three times a with food day Results No Known Results Summary Purpose eClinicalWorks Submission
--- OUTSIDE RECORDS SUMMARY | 2020-02-03 20:29 | XMS REPORT ---
[...] trigger Problem Mixed hyperlipidemia E78.2 Active Assessment long-term current use of insulin Z79.4 Active Problem long-term current use of insulin Z79.4 Active Assessment [...] Status Dosage System Date Date Narcisa Microlet [facility] 86755892275 - use lancets Active as Lancets three times a directed day Atorvastatin [facility] 63773442240 40 MG Active TAKE 1 Calcium TABLET BY MOUTH AT BEDTIME. Metoprolol [facility] 51108125819 100 MG Active take by Succinate ER mouth 1 tablet daily Lisinopril [facility] 82942752713 20 MG Inactive take 2 tablet by mouth every day BD Insulin Syringe [facility] 73108288827 31G X 516 Active not Ultrafine defined Narcisa Lancets [facility] 02890880099 1 In Vetro Jul Active check three times a , 03, blood day 2018 2019 sugar Contour Next Test [facility] 53046636542 - three times Active as a day directed Flonase [facility] 55791947166 50 MCG/ACT Nov 27, Active 2 spray in Nasally Once a 2019 each day nostril HydrALAZINE HCl [facility] 00072585070 25 MG Orally Active 1 tablet Three times a with food day Guaifenesin ND 70114677195 200 MG Orally Active 1 tablet every 4 hrs as needed Vitamin B-12 ER ND 88233636112 1000 MCG Active 1 tablet Orally Once a day BD Insulin Syringe [facility] 57468097669 31G X 5/16 Active not Ultrafine defined Glucometer Kit [facility] 0 Fingerstick Jan 03, April 02, Active Check BS TID 2017 2025 three times a day Clopidogrel ND 80592112652 75 MG Active TAKE 1 Bisulfate TABLET BY MOUTH EVERY DAY Narcisa Microlet [facility] 84406138177 - use lancets Active as Lancets three times a directed day Cetirizine HCl [facility] 03266778685 10 MG Orally Nov 27May Active 1 tablet Once a day 2019 Amiloride HCl ND 32551595086 5 MG Orally Active 1 tablet Once a day Kyler Felipe [facility] 35377503159 300 UNIT/ML Active not Subcutaneous defined Cyclobenzaprine [facility] 67937536179 10 MG Oral Active TAKE 1 HCl TABLET BY MOUTH EVERY DAY NEEDED Magnesium ND 57975593983 500 MG Orally Active 1 tablet Once a day with a meal Omeprazole [facility] 00235845602 40 MG Orally Active TAKE BY Once a day MOUTH 1 CAPSULE ADA Spironolactone [facility] 65458655964 25 MG Orally Active 1 tablet Once a day with food HydrALAZINE HCl [facility] 22402455885 25 MG Orally Active 1 tablet Three times a with food day Victoza [facility] 92799173377 18 MG/3ML Active not Subcutaneous defined Fenofibrate ND 48658031876 48 MG Orally Inactive 1 tablet Once a day with food Neomycin-Polymyxin [facility] 87272389502 3.5-94508-5 Active 4 drops -HC Otic Three into times a day affected ear Metformin HCl ND 88765139921 1000 MG Orally Active 1 tablet once a day with meals Clopidogrel [facility] 04165220428 75 MG Active TAKE 1 Bisulfate TABLET BY MOUTH EVERY DAY Lasix [facility] 93949150213 40 MG Orally Active 1 tablet twice a day Aspir-81 [facility] 03564068683 81 MG Orally Active 1 tablet Once a day Humalog KwikPen [facility] 21561163002 100 UNIT/ML Active not Subcutaneous defined Atorvastatin [facility] 39819718222 40 MG Orally Active 1 tablet Calcium Once a day Accu-Chek SoftClix [facility] 23749317313 1 InVitro Active As Lancet Directed Narcisa Contour Next ND 43445492296 - Active USE 3 Test TIMES A DAY E11.9 Lancets [facility] 48469563113 - Active not defined Glucometer Kit ND 0 Fingerstick Jan 03April 02, Active Check BS BID 2017 2025 twice a day Results No Known Results Summary Purpose eClinicalWorks Submission
[2020-02-03 21:32] LABS: Absolute Lymphocytes (CBC) 1.6 K/uL (0.7-4.9); Basophils % 0.9 % (0-1.3); Hematocrit 33.8 % (36.0-45.0); MPV 7.5 fL (7.6-11.3); RBC Red Blood Cell Count 3.93 M/uL (3.86-4.86)
[2020-02-03 21:37] LABS: Protime INR 0.89
[2020-02-03 21:53] LABS: ALT/SGPT 17 U/L (12-78); AST/SGOT 24 U/L (15-37); Alkaline Phosphatase 122 U/L (45-117); BUN Blood Urea Nitrogen 31 mg/dL (7-18); Bicarbonate 28 mmol/L (21-32); Bilirubin Direct < 0.1 mg/dL (0-0.2); CKMB Creatine Kinase MB 3.9 ng/mL (0.3-3.6); Creatine Phosphokinase 606 U/L (26-192); Glucose Level 157 mg/dL (74-106); Lipase 142 U/L (73-393); Magnesium 2.1 mg/dL (1.8-2.4); Protein, Total 7.9 g/dL (6.4-8.2); Sodium Level 141 mmol/L (136-145); Troponin (Emerg Dept Use Only) < 0.02 ng/mL (0.0-0.045)
[2020-02-03 21:54] LABS: Bilirubin Total < 0.1 mg/dL (0.2-1.0)
[2020-02-03 23:55] LABS: Urine Blood TRACE (NEG); Urine Glucose TRACE (NEG); Urine Protein 3+ (NEG); Urine Specific Gravity 1.025 (1.005-1.030)
--- NOTE | 2020-02-04 00:22 | ER ---
Nurse's Notes [facility] Name: Evelia Reis Age: 64 yrs Sex: Female : 1955 Arrival Date: 02/03/2020 Time: 20:32 Bed 27 Private MD: Diagnosis: Dizziness and giddiness;Weakness;Urinary tract infection, site not specified Presentation: 02/02 20:35 Chief complaint: Patient states: went to bed at 5 am this morning, woke up around 9 or iw 10 am, felt weak like she could barely walk with her walker, has arthritis, called EMS because she felt like her right leg was dragging, EMS checked her out, was told her VS were stable and that maybe she was very tired. and she had taken her CBD oil, pt stayed home, went back to sleep for a couple hours and woke up still felt like she was "walking sideways" and feels like her right leg is still dragging , also feels like she has vertigo. Coronavirus screen: The patient has NOT traveled to a country currently being monitored by the CDC within the last 14 days. Proceed with normal triage procedures. The patient has NOT had contact with any known and/or suspected case of coronavirus. Proceed with normal triage procedures. Ebola Screen: Patient negative for fever greater than or equal to 101.5 degrees Fahrenheit, and additional compatible Ebola Virus Disease symptoms Patient denies exposure to infectious person. Patient denies travel to an Ebola-affected area in the 21 days before illness onset. No symptoms or risks identified at this time. 20:35 Method Of Arrival: EMS: [facility] iw 20:35 Acuity: SHERRI 3 iw 20:35 Onset of symptoms was February 04, 2020. iw 20:45 Initial Sepsis Screen: Does the patient meet any 2 criteria? No. Patient's initial iw sepsis screen is negative. Does the patient have a suspected source of infection? No. Patient's initial sepsis screen is negative. Risk Assessment: Do you want to hurt yourself or someone else? Patient reports no desire to harm self or others. Historical: - Allergies: 21:31 Amoxicillin; iw 21:31 NSAIDS; iw - PMHx: 21:31 Arthritis; CVA; Diabetes - IDDM; GERD; Hyperlipidemia; Hypertension; ischemic stroke; iw sciatica; - PSHx: 21:31 right great toe amputation; iw - Immunization history:: Adult Immunizations not up to date. - Social history:: Smoking status: Patient denies any tobacco usage or history of. Screenin:34 Abuse screen: Denies threats or abuse. Denies injuries from another. Nutritional iw screening: No deficits noted. Tuberculosis screening: No symptoms or risk factors identified. Fall Risk Fall in past 12 months (25 points). Assessment: 21:20 General: Appears in no apparent distress. Behavior is calm, cooperative. Pain: Denies iw pain. Neuro: Level of Consciousness is awake, alert, obeys commands, Oriented to person, place, time, situation, Moves all extremities. Full function Reports dizziness, weakness in right leg and left leg Denies blurred vision paresthesias numbness headache photophobia. Cardiovascular: Denies chest pain, shortness of breath, Capillary refill < 3 seconds in bilateral fingers Patient's skin is warm and dry. Respiratory: Respiratory effort is even, unlabored, Respiratory pattern is regular, symmetrical. GI: No signs and/or symptoms were reported involving the gastrointestinal system. : No signs and/or symptoms were reported regarding the genitourinary system. Derm: Skin is intact, is healthy with good turgor. Musculoskeletal: Range of motion: intact in all extremities. 22:47 Reassessment: Patient appears in no apparent distress at this time. Patient and/or iw family updated on plan of care and expected duration. Pain level reassessed. Patient is alert, oriented x 3, equal unlabored respirations, skin warm/dry/pink. Vital Signs: 20:45 BP 193 / 82; Pulse 83; Resp 16; Temp 98.21; Pulse Ox 98% on R/A; Weight 122.47 kg; iw Height 5 ft. 3 in. (160.02 cm); Pain 0/10; 21:57 BP 132 / 72; Pulse 82; Resp 16; Pulse Ox 100% on R/A; Pain 0/10; iw 20:45 Body Mass Index 47.83 (122.47 kg, 160.02 cm) iw ED Course: 20:32 Patient arrived in ED. ds1 20:36 Clay Bernardo MD is Attending Physician. tw4 20:50 Arabella Garcia, RN is Primary Nurse. iw 20:55 Triage completed. iw 21:04 CT Head Brain wo Cont In Process Unspecified. EDMS 21:25 Initial lab(s) drawn, by me, sent to lab. Inserted saline lock: 20 gauge in right iw antecubital area, using aseptic technique. Blood collected. 21:31 Arm band placed on. iw 21:57 Patient has correct armband on for positive identification. iw 03 00:21 No provider procedures requiring assistance completed. IV discontinued, intact, iw bleeding controlled, No redness/swelling at site. Pressure dressing applied. Administered Medications: No medications were administered Outcome: 00:21 Discharge ordered by . tw4 01:05 Discharged to home via wheelchair. iw 01:05 Condition: good 01:05 Discharge instructions given to patient, Instructed on discharge instructions, follow up and referral plans. medication usage, Demonstrated understanding of instructions, follow-up care, medications, Prescriptions given X 2. 01:08 Patient left the ED. iw Signatures: Dispatcher [employer] EDAK Cely Kingsley ds1 Arabella Garcia, RN RN iw Clay Bernardo, MD DIMAS tw4
--- NOTE | 2020-02-04 00:22 | EDPHYS ---
Physician Documentation [facility] Name: Evelia Reis Age: 64 yrs Sex: Female : 1955 Arrival Date: 02/03/2020 Time: 20:32 Bed 27 Private MD: ED Physician Clay Bernardo HPI: 02/03 04:39 This 64 yrs old Female presents to ER via EMS with complaints of Dizziness. tw4 04:39 The patient presents with dizziness. Onset: The symptoms/episode began/occurred tw4 yesterday. Context: occurred at home. Modifying factors: The symptoms are alleviated by holding head still, the symptoms are aggravated by movement of head. Associated signs and symptoms: Pertinent positives: focal weakness of the right leg. Severity of symptoms: At their worst the symptoms were mild in the emergency department the symptoms have improved. Patient's baseline: Neuro: alert and fully oriented, Motor: no deficits, Ambulation: walks with assist only. The patient has not experienced similar symptoms in the past. Historical: - Allergies: 02/02 21:31 Amoxicillin; iw 21:31 NSAIDS; iw - PMHx: 21:31 Arthritis; CVA; Diabetes - IDDM; GERD; Hyperlipidemia; Hypertension; ischemic stroke; iw sciatica; - PSHx: 21:31 right great toe amputation; iw - Immunization history:: Adult Immunizations not up to date. - Social history:: Smoking status: Patient denies any tobacco usage or history of. ROS: 02/03 04:39 Constitutional: Negative for fever, chills, and weight loss, Eyes: Negative for injury, tw4 pain, redness, and discharge, Cardiovascular: Negative for chest pain, palpitations, and edema, Respiratory: Negative for shortness of breath, cough, wheezing, and pleuritic chest pain, Abdomen/GI: Negative for abdominal pain, nausea, vomiting, diarrhea, and constipation, Back: Negative for injury and pain, MS/Extremity: Negative for injury and deformity, Skin: Negative for injury, rash, and discoloration. Neuro: Positive for dizziness, Negative for altered mental status, gait disturbance, headache, hearing loss, loss of consciousness, numbness, seizure activity, tinnitus, tremor, visual changes, weakness. Exam: 04:39 Constitutional: This is a well developed, well nourished patient who is awake, alert, tw4 and in no acute distress. Head/Face: Normocephalic, atraumatic. Chest/axilla: Normal chest wall appearance and motion. Nontender with no deformity. No lesions are appreciated. Cardiovascular: Regular rate and rhythm with a normal S1 and S2. No gallops, murmurs, or rubs. Normal PMI, no JVD. No pulse deficits. Respiratory: Lungs have equal breath sounds bilaterally, clear to auscultation and percussion. No rales, rhonchi or wheezes noted. No increased work of breathing, no retractions or nasal flaring. Abdomen/GI: Soft, non-tender, with normal bowel sounds. No distension or tympany. No guarding or rebound. No evidence of tenderness throughout. Back: No spinal tenderness. No costovertebral tenderness. Full range of motion. MS/ Extremity: Pulses equal, no cyanosis. Neurovascular intact. Full, normal range of motion. Neuro: Awake and alert, GCS 15, oriented to person, place, time, and situation. Cranial nerves II-XII grossly intact. Motor strength 5/5 in all extremities. Sensory grossly intact. Cerebellar exam normal. Normal gait. Vital Signs: 02/02 20:45 BP 193 / 82; Pulse 83; Resp 16; Temp 98.21; Pulse Ox 98% on R/A; Weight 122.47 kg; iw Height 5 ft. 3 in. (160.02 cm); Pain 0/10; 21:57 BP 132 / 72; Pulse 82; Resp 16; Pulse Ox 100% on R/A; Pain 0/10; iw 20:45 Body Mass Index 47.83 (122.47 kg, 160.02 cm) iw MDM: 20:37 Patient medically screened. tw4 02/03 04:39 Differential diagnosis: cardiac arrhythmia, CVA, generalized weakness, idiopathic tw4 dizziness. Data reviewed: vital signs, nurses notes, lab test result(s), CBC, electrolytes, hepatic panel, EKG. Data reviewed: lab test result(s), urinalysis, bacteruria. Data interpreted: Pulse oximetry: Interpretation: normal. Test interpretation: by ED physician or midlevel provider: ECG. Counseling: I had a detailed discussion with the patient and/or guardian regarding: the historical points, exam findings, and any diagnostic results supporting the discharge/admit diagnosis. 02/02 20:44 Order name: Basic Metabolic Panel; Complete Time: 23:55 [facility] [email or web address]] 02/02 23:55 Interpretation: Normal except: GLUC 157; GFR 41; CRE 1.31; BUN 31. [facility] [[email or web address]] 02/02 20:44 Order name: CBC with Diff; Complete Time: 23:55 [facility] [[email or web address]] 02/02 23:56 Interpretation: Normal except: HGB 11.3; HCT 33.8; IVETTE% 75.7; MPV 7.5. [facility] [[email or web address]] 02/02 20:44 Order name: Ckmb; Complete Time: 23:55 [facility] [[email or web address]] 02/02 23:56 Interpretation: Abnormal: CKMB 3.9. [facility] [[email or web address]] 02/02 20:44 Order name: CPK; Complete Time: 23:55 [facility] [[email or web address]] 02/02 23:56 Interpretation: Normal except: CPK 606. [facility] [[email or web address]] 02/02 20:44 Order name: Hepatic Function; Complete Time: 23:55 [facility] [[email or web address]] 02/02 23:57 Interpretation: Normal except: BILIT < 0.1; ALK 122; ALB 3.0; GLOB 4.9; A/G 0.6. [facility] [[email or web address]] 02/02 20:44 Order name: Lipase; Complete Time: 23:55 [facility] [[email or web address]] 02/02 20:44 Order name: CT Head Brain wo Cont [facility] [[email or web address]] 02/02 20:44 Order name: Magnesium; Complete Time: 23:55 [email or web address]] 02/02 20:44 Order name: Protime (+inr); Complete Time: 23:55 [email or web address]] 02/02 20:44 Order name: Ptt, Activated; Complete Time: 23:55 [facility] [[email or web address]] 02/02 20:44 Order name: Troponin (emerg Dept Use Only); Complete Time: 23:55 [facility] [[email or web address]] 02/02 20:44 Order name: EKG; Complete Time: 20:45 [facility] [[email or web address]] 02/02 20:44 Order name: Cardiac monitoring; Complete Time: 21:34 [facility] [[email or web address]] 02/02 22:15 Order name: Urine Dipstick--Ancillary (enter results); Complete Time: 00:19 nc 02/03 00:19 Interpretation: Normal except: UBLD TRACE; UESTR TRACE; UPROT 3+. [facility] [[email or web address]] 02/02 20:44 Order name: EKG - Nurse/Tech; Complete Time: 22:02 [email or web address]] 02/02 20:44 Order name: IV Saline Lock; Complete Time: 21:34 [facility] [[email or web address]] 02/02 20:44 Order name: Labs collected and sent; Complete Time: :02 4 02/02 20:44 Order name: NPO; Complete Time: :4 02/02 20:44 Order name: O2 Per Protocol; Complete Time: 22:4 02/02 20:44 Order name: O2 Sat Monitoring; Complete Time: :4 02/02 20:44 Order name: Urine Dipstick-Ancillary (obtain specimen); Complete Time: : tw4 EC:46 Rate is 74 beats/min. Rhythm is regular, Normal Sinus Rhythm with Right bundle branch tw4 block. QRS [place] is Normal. CO interval is normal. QRS interval is normal. QT interval is normal. No Q waves. T waves are Normal. No ST changes noted. Clinical impression: NSR w/ Non-specific ST/T Changes and Abnormal EKG without significant change. Interpreted by me. Reviewed by me. Administered Medications: No medications were administered Disposition: 02/04/20 00:21 Discharged to Home. Impression: Dizziness and giddiness, Weakness, Urinary tract infection, site not specified. - Condition is Stable. - Discharge Instructions: Dizziness, Urinary Tract Infection, Adult, Weakness, Fatigue. - Prescriptions for Meclizine 25 mg Oral Tablet - take 1 tablet by ORAL route every 8 hours As needed; 30 tablet. Macrobid 100 mg Oral Capsule - take 1 capsule by ORAL route every 12 hours for 10 days; 20 capsule. - Medication Reconciliation Form, Thank You Letter, Antibiotic Education, Prescription Opioid Use form. - Follow up: Private Physician; When: Upon discharge from the Emergency Department; Reason: Recheck today's complaints, Continuance of care, Re-evaluation by your physician. - Problem is new. - Symptoms have improved. Signatures: Dispatcher [employer] Arabella Easley RN RN iw Wadley, Terrence, MD MD tw4 Corrections: (The following items were deleted from the chart) 00:21 00:21 02/04/2020 00:21 Discharged to Home. Impression: Dizziness and giddiness. tw4 Condition is Stable. Forms are Medication Reconciliation Form, Thank You Letter, Antibiotic Education, Prescription Opioid Use. Problem is new. Symptoms have improved. tw4 01:08 00:02/04/2020 00:21 Discharged to Home. Impression: Dizziness and giddiness; iw Weakness; Urinary tract infection, site not specified. Condition is Stable. Forms are Medication Reconciliation Form, Thank You Letter, Antibiotic Education, Prescription Opioid Use. Follow up: Private Physician; When: Upon discharge from the Emergency Department; Reason: Recheck today's complaints, Continuance of care, Re-evaluation by your physician. Problem is new. Symptoms have improved. tw4
[2020-02-04 01:33] VITALS: BP 132/72; O2SAT 100
--- NOTE | 2020-02-04 08:49 | EKG ---
Test Date: 2020-02-03 Test Time: 21:46:47 Net Maker: MATY MEASUREMENT RESULTS: Intervals: Rate: 74 RI: 132 QRSD: 94 QT: 416 QTc: 461 [place]: P: 59 RI: 132 QRS: -9 T: 13 INTERPRETIVE STATEMENTS: Normal sinus rhythm Incomplete right bundle branch block Moderate voltage criteria for LVH, may be normal variant Borderline ECG Compared to ECG 10/10/2019 23:14:23 Incomplete right bundle-branch block now present Left ventricular hypertrophy now present ST (T wave) deviation no longer present Electronically Signed On 02-04-20 08:48:25 CDT by You Hernandez
--- NOTE | 2020-02-04 12:06 | RAD REPORT ---
EXAM DESCRIPTION: Head Brain Wo Cont CLINICAL HISTORY: 64 years Female WEAKNESS COMPARISON: CT head without contrast dated December 28, 2019 TECHNIQUE: Contiguous axial images of the brain were obtained without the administration of intraven ous contrast.This exam was performed according to our departmental dose-optimization program which in cludes use of Automated Exposure Control, adjustment of the mA and/or kV according to patient size an d/or use of iterative reconstruction technique. DLP: 824 mGy*cm FINDINGS: Brain: No acute intracranial hemorrhage. No extra-axial collection. No mass effect or orin iation. Prominence of the sulci and cisterns. Diffuse confluent periventricular and subcortical whi te matter hypodensity is noted. Ventricles: Allowing for underlying cerebral volume loss, ventricular size appears within normal limi ts. Globes and orbits: No acute abnormality. Bones: No acute osseous finding Paranasal sinuses: Paranasal sinuses are clear. Mastoid air cells: Well pneumatized. Soft tissues: Within normal limits IMPRESSION: No acute intracranial hemorrhage, hydrocephalus or herniation. Cerebral volume loss and chronic small vessel ischemic changes. If persistent clinical concern for ac igiugig ischemia, consider MRI brain without contrast for further evaluation. Electronically signed by: Yoav Nowak DO 02/03/2020 9:41 PM CDT Due to temporary technical issues with the PACS/Fluency reporting system, reports are being signed by the in house radiologist as a courtesy to ensure prompt reporting. The interpreting radiologist is f ully responsible for the content of the report.
== END 2020-02-04 01:08 | disposition home or self-care (01) ==
LOC: ER 20:26
DX: N39.0 Urinary tract infection, site not specified (principal); R53.1 Weakness; I10 Essential (primary) hypertension; Z88.1 Allergy status to other antibiotic agents; Z88.6 Allergy status to analgesic agent
CPT/HCPCS: 36415; 70450; 80048; 80076; 81003; 82550; 82553; 83690; 83735; 84484; 85025; 85610; 85730; 93005; 99284